=== PATIENT | female | born 1960 | race Caucasian/White ===

== ENCOUNTER 2016-11-27 11:40 | Inpatient (IN) | payer BC, OTHER ==
--- NOTE | 2016-11-27 13:05 | RAD ---
INDICATION: Shortness of breath tachycardia. COMPARISON: There are no prior studies available for comparison. TECHNIQUE: A portable view of the chest was obtained. FINDINGS: The heart is within normal limits for this portable exam. The lungs are underinflated. There are small infiltrates at both lung bases and a small left pleural effusion. IMPRESSION: SMALL BIBASILAR INFILTRATES AND SMALL LEFT PLEURAL EFFUSION.
[2016-11-27 13:06] LABS: Hematocrit 31 % (35-47); Hemoglobin 10.5 g/dl (12.0-16.0); Mean Corpuscular HGB Conc 34 g/dl (31-36); Mean Corpuscular Hemoglobin 39 pg (27-31); Mean Corpuscular Volume 117 fL (80-97); Mean Platelet Volume 8 um3 (7.4-10.4); Red Blood Count 2.66 10^6/ul (4.0-5.4); Red Cell Distribution Width 26 % (10.5-15); White Blood Count 15.8 10^3/ul (3.5-10.8)
--- NOTE | 2016-11-27 13:07 | RAD ---
INDICATION: Left ankle injury. TECHNIQUE: 3 views of the left ankle were obtained. FINDINGS: There is diffuse soft tissue swelling which is most prominent adjacent to the medial malleolus. The bones are in normal alignment. Joint spaces appear maintained. No acute fracture is seen. There is a small ossicle noted adjacent to the distal fibula. IMPRESSION: SOFT TISSUE SWELLING, NO FRACTURE IS SEEN.
[2016-11-27 13:15] LABS: Add Diff/Slide Review? Slide Review Added; Comments Flag Yes
[2016-11-27 13:22] LABS: ALT 21 U/L (7-52); AST 40 U/L (13-39); Albumin 2.5 g/dL (3.2-5.2); Alkaline Phosphatase 161 U/L (34-104); Anion Gap 12 mmol/L (2-11); BUN/Creatinine Ratio 12.8 (8-20); Blood Urea Nitrogen 21 mg/dL (6-24); C Reactive Protein 79.73 mg/L (< 5.00); CO2 Carbon Dioxide 18 mmol/L (22-32); Calcium 8.3 mg/dL (8.6-10.3); Chloride 102 mmol/L (101-111); Creatine Kinase 65 U/L (10-223); EGFR African American 41.5 (>60); EGFR Non-African American 32.3 (>60); Globulin 3.1 g/dL (2-4); Glucose 96 mg/dL (70-100); Lipase 18 U/L (11.0-82.0); Sodium 132 mmol/L (133-145); Total Protein 5.6 g/dL (6.4-8.9)
[2016-11-27 13:26] LABS: B Type Natriuretic Peptide 444 pg/mL; Troponin I 0.04 ng/mL (<0.04)
[2016-11-27 13:28] LABS: Magnesium 1.6 mg/dL (1.9-2.7)
[2016-11-27 13:33] LABS: Immature Granulocytes 20 % (0-9); Metamyelocytes % 1 % (0-2); Myelocytes % 1 % (0-1); Neutrophil % 70 % (38-83); Reactive Lymph % 2 % (0-6)
[2016-11-27 13:34] LABS: Alcohol < 10 mg/dL (<10); Burr Cells 2+; Macrocytosis 3+; Polychromasia 1+
[2016-11-27 13:35] LABS: Add Path Review? YES; Tear Drop Cells 1+
[2016-11-27 13:42] LABS: TSH (Thyroid Stimulating Horm) 2.12 mcIU/mL (0.34-5.60)
--- NOTE | 2016-11-27 13:45 | RAD ---
INDICATION: Left lower extremity swelling. COMPARISON: There are no prior studies available for comparison. TECHNIQUE: Multiple real-time, color flow and Doppler tracings of the left lower extremity were obtained. FINDINGS: The common femoral, femoral, profunda femoral and popliteal veins all demonstrate normal compressibility, augmentation with compression and phasic response with respiration. The posterior tibial and peroneal veins demonstrate normal compressibility and augmentation with compression. IMPRESSION: NO EVIDENCE FOR DEEP VENOUS THROMBOSIS.
[2016-11-27] MEDS ORDERED: Iodixanol* (CONTRAST) 320 MG/ML 100 ML SDV IV ONE (13:49)
[2016-11-27 13:59] LABS: Acetaminophen 66 mcg/mL
[2016-11-27] MEDS ORDERED: Acetylcysteine IV* 0 MG in D5W 250 ML BAG* 200 ML IVPB ONE (14:11)
[2016-11-27] MEDS ORDERED: D5W IVPB ONE ×3 (14:30→21:00)
[2016-11-27] MEDS ORDERED: ACETYLCYSTEINE IVPB ONE ×3 (14:30→21:00)
--- NOTE | 2016-11-27 14:41 | RAD ---
INDICATION: Abdominal pain and jaundice. COMPARISON: Comparison is made with a prior right upper quadrant ultrasound from May 26, 2012. TECHNIQUE: A CT scan of the abdomen and pelvis was performed without intravenous and with oral contrast. Contiguous axial sections were obtained from the lung bases through the symphysis pubis. Images were reconstructed in the coronal and sagittal planes. FINDINGS: There is a small to moderate size right pleural effusion and a small left pleural effusion. There is mild right lower lobe subsegmental atelectasis. The liver is normal in size without significant focal abnormality on this noncontrast study. The gallbladder is distended. There are calcified gallstones present in the region of the neck of the gallbladder. No intra or extra hepatic ductal distention is appreciated. The pancreas is normal in size. No pancreatic ductal distention is noted. There appears to be a duodenal diverticulum adjacent to the pancreatic head. The spleen is enlarged measuring 15.2 cm AP and 14.6 cm craniocaudad 6.6 cm transverse. The adrenal glands and kidneys are normal in size. No renal calculi or hydronephrosis is seen. The aorta is normal in caliber without significant calcific plaque. There are enlarged retroperitoneal lymph nodes present anterior to the inferior portion of the inferior vena cava extending into the right common iliac chain. These measure up to 1.9 cm in transverse dimension and are not well-defined on this study due to lack of IV contrast and minimal oral contrast in the adjacent bowel. The stomach, small and large bowel appear nondistended. The appendix is not visualized. There appears to be thickening of the wall of the ascending colon suggestive of colitis. This is not well-defined on this study. There is a moderate amount of ascites present throughout the abdomen and pelvis. No free intraperitoneal air is seen. The uterus is retroverted and normal in size. There is a mild compression fracture of the superior endplate of the L1 vertebral body which is likely chronic. There is also a moderate chronic compression fracture of the T9 vertebral body. IMPRESSION: 1. SMALL BILATERAL PLEURAL EFFUSIONS. 2. MODERATE AMOUNT OF ASCITES. 3. DISTENDED GALLBLADDER AND CHOLELITHIASIS. 4. MILD THICKENING OF THE WALL OF THE ASCENDING COLON SUGGESTIVE OF COLITIS. 5. SPLENOMEGALY. 6. ENLARGED RETROPERITONEAL LYMPH NODES IN THE LOWER ABDOMEN AND PELVIS. 7. CHRONIC VERTEBRAL BODY COMPRESSION FRACTURES.
--- NOTE | 2016-11-27 14:50 | ED ---
IHussein,Samantha, scribed for Edgardo Flowers MD on 11/27/16 at 1229 . Lower Extremity - HPI Summary HPI Summary: This 56 y/o female presents to ED with chief complaint BLE pain and swelling since 3 days ago. Pt reports that she twisted her LLE ankle while climbing stairs several days ago, and noted bilat swelling. Positive abd bloating, abd pain, chills, SOB, and general weakness. Vague complaint of confusion. Pt states that she slept for 24 hours yesterday. present at bedside reports complaint of subjective fever and APAP taken yesterday. PMHx includes hepatitis as child and HTN. Blood pressure of 140/67 is noted at time of initial evaluation. - History of Current Complaint Chief Complaint: EDAbdPain Stated Complaint: BOTH LEGS HURT Time Seen by Provider: 11/27/16 12:07 Hx Obtained From: Patient, Medical Records Mechanism Of Injury: Twisted - LLE, Unknown Pain Intensity: 5 Pain Scale Used: 0-10 Numeric Location: Is Discrete @ - BLE Associated Signs And Symptoms: Positive: Swelling, Fever - Allergies/Home Medications Allergies/Adverse Reactions: Allergies Allergy/AdvReac Type Severity Reaction Status Date / Time Bee Venom Allergy Fever Verified 11/27/16 12:00 environmental Allergy Dizziness Uncoded 11/27/16 11:59 environmental/ fragrances Allergy Dizziness Uncoded 11/27/16 11:59 seafood Allergy Hives Uncoded 11/27/16 12:00 tree nuts Allergy Hives Uncoded 11/27/16 11:58 Home Medications: Home Medications Acetaminophen TAB* [Tylenol TAB*] 1,000 mg PO Q4H PRN 11/27/16 [History Confirmed 11/27/16] PMH/Surg Hx/FS Hx/Imm Hx Cardiovascular History: Reports: Hx Hypertension Infectious Disease History: No Infectious Disease History: Denies: Traveled Outside the [place] in Last 30 Days - Family History Known Family History: Positive: Unknown - Pt is adopted - Social History Alcohol Use: Occasionally Substance Use Type: Reports: None Smoking Status (MU): Never Smoked Tobacco Review of Systems Positive: Fever, Chills Positive: Abdominal Pain, Other - abd bloating Positive: Edema - BLE, Other - BLE pain Positive: Weakness - General weakness Negative: Anxious, Depressed All Other Systems Reviewed And Are Negative: Yes Physical Exam Triage Information Reviewed: Yes Vital Signs On Initial Exam: Initial Vitals Temp Pulse Resp BP Pulse Ox 97.4 F 112 16 135/53 100 11/27/16 11:51 11/27/16 11:51 11/27/16 11:51 11/27/16 11:51 11/27/16 11:51 Vital Signs Reviewed: Yes Appearance: Positive: Ill-Appearing Skin: Positive: Jaundiced Head/Face: Positive: Normal Head/Face Inspection Eyes: Positive: Other: - icteric sclera Neck: Positive: Supple, Nontender Respiratory/Lung Sounds: Positive: Clear to Auscultation, Breath Sounds Present Cardiovascular: Positive: Tachycardia Abdomen Description: Positive: Other: - abd diffusely tender Musculoskeletal: Positive: Strength/ROM Intact - HARRISON Neurological: Positive: Sensory/Motor Intact - [place], Alert, Oriented to Person Place, Time Psychiatric: Positive: Affect/Mood Appropriate AVPU Assessment: Alert Diagnostics - Vital Signs Vital Signs Temp Pulse Resp BP Pulse Ox 11/27/16 11:51 97.4 F 112 16 135/53 100 - Laboratory Lab Results: Lab Results 11/27/16 11/27/16 11/27/16 Range/Units 12:55 12:55 12:55 WBC 15.8 H (3.5-10.8) 10^3/ul RBC 2.66 L (4.0-5.4) 10^6/ul Hgb 10.5 L (12.0-16.0) g/dl Hct 31 L (35-47) % MCV 117 H (80-97) fL MCH 39 H (27-31) pg MCHC 34 (31-36) g/dl RDW 26 H (10.5-15) % Plt Count 70 L (150-450) 10^3/ul MPV 8 (7.4-10.4) um3 Immature Gran % (Auto) 20 H (0-9) % Neut % (Auto) 86.6 H (38-83) % Lymph % (Auto) 7.9 L (25-47) % [place] % (Auto) 4.2 (1-9) % Eos % (Auto) 1.1 (0-6) % Baso % (Auto) 0.2 (0-2) % Absolute Neuts (auto) 13.7 H (1.5-7.7) 10^3/ul Absolute Lymphs (auto) 1.3 (1.0-4.8) 10^3/ul Absolute Monos (auto) 0.7 (0-0.8) 10^3/ul Absolute Eos (auto) 0.2 (0-0.6) 10^3/ul Absolute Basos (auto) 0 (0-0.2) 10^3/ul Absolute Nucleated RBC 0.01 10^3/ul Neutrophils % 70 (38-83) % Band Neutrophils % 18 H (0-8) % Lymphocytes % 6 L (25-47) % Reactive Lymphs % 2 (0-6) % Monocytes % 2 (0-13) % Metamyelocytes % 1 (0-2) % Myelocytes % 1 (0-1) % Nucleated RBC % 0 Normal RBC Morphology Not Reportable Polychromasia 1+ Macrocytosis 3+ Tear Drop Cells 1+ [place] Cells 2+ Hem Pathologist Commnt Pending INR (Anticoag Therapy) 2.82 H (0.89-1.11) APTT 54.4 H (26.0-36.3) seconds D-Dimer, Quantitative > 1050 H (Less Than 230) ng/mL Sodium 132 L (133-145) mmol/L Potassium 4.0 (3.5-5.0) mmol/L Chloride 102 (101-111) mmol/L Carbon Dioxide 18 L (22-32) mmol/L Anion Gap 12 H (2-11) mmol/L BUN 21 (6-24) mg/dL Creatinine 1.64 H (0.51-0.95) mg/dL Est GFR ( Amer) 41.5 (>60) Est GFR (Non-Af Amer) 32.3 (>60) BUN/Creatinine Ratio 12.8 (8-20) Glucose 96 (70-100) mg/dL Lactic Acid (0.5-2.0) mmol/L Calcium 8.3 L (8.6-10.3) mg/dL Magnesium 1.6 L (1.9-2.7) mg/dL Total Bilirubin 17.70 H* (0.2-1.0) mg/dL AST 40 H (13-39) U/L ALT 21 (7-52) U/L Alkaline Phosphatase 161 H (34-104) U/L Ammonia Total Creatine Kinase 65 (10-223) U/L CK-MB (CK-2) 3.0 (0.6-6.3) ng/mL Troponin I 0.04 H* (<0.04) ng/mL C-Reactive Protein 79.73 H (< 5.00) mg/L B-Natriuretic Peptide ( - 100) pg/mL Total Protein 5.6 L (6.4-8.9) g/dL Albumin 2.5 L (3.2-5.2) g/dL Globulin 3.1 (2-4) g/dL Albumin/Globulin Ratio 0.8 L (1-3) Lipase 18 (11.0-82.0) U/L TSH 2.12 (0.34-5.60) mcIU/mL Acetaminophen 66 H* mcg/mL Serum Alcohol < 10 (<10) mg/dL 11/27/16 11/27/16 Range/Units 12:55 12:55 WBC (3.5-10.8) 10^3/ul RBC (4.0-5.4) 10^6/ul Hgb (12.0-16.0) g/dl Hct (35-47) % MCV (80-97) fL MCH (27-31) pg MCHC (31-36) g/dl RDW (10.5-15) % Plt Count (150-450) 10^3/ul MPV (7.4-10.4) um3 Immature Gran % (Auto) (0-9) % Neut % (Auto) (38-83) % Lymph % (Auto) (25-47) % [place] % (Auto) (1-9) % Eos % (Auto) (0-6) % Baso % (Auto) (0-2) % Absolute Neuts (auto) (1.5-7.7) 10^3/ul Absolute Lymphs (auto) (1.0-4.8) 10^3/ul Absolute Monos (auto) (0-0.8) 10^3/ul Absolute Eos (auto) (0-0.6) 10^3/ul Absolute Basos (auto) (0-0.2) 10^3/ul Absolute Nucleated RBC 10^3/ul Neutrophils % (38-83) % Band Neutrophils % (0-8) % Lymphocytes % (25-47) % Reactive Lymphs % (0-6) % Monocytes % (0-13) % Metamyelocytes % (0-2) % Myelocytes % (0-1) % Nucleated RBC % Normal RBC Morphology Polychromasia Macrocytosis Tear Drop Cells [place] Cells Hem Pathologist Commnt INR (Anticoag Therapy) (0.89-1.11) APTT (26.0-36.3) seconds D-Dimer, Quantitative (Less Than 230) ng/mL Sodium (133-145) mmol/L Potassium (3.5-5.0) mmol/L Chloride (101-111) mmol/L Carbon Dioxide (22-32) mmol/L Anion Gap (2-11) mmol/L BUN (6-24) mg/dL Creatinine (0.51-0.95) mg/dL Est GFR ( Amer) (>60) Est GFR (Non-Af Amer) (>60) BUN/Creatinine Ratio (8-20) Glucose (70-100) mg/dL Lactic Acid 5.2 H* (0.5-2.0) mmol/L Calcium (8.6-10.3) mg/dL Magnesium (1.9-2.7) mg/dL Total Bilirubin (0.2-1.0) mg/dL AST (13-39) U/L ALT (7-52) U/L Alkaline Phosphatase (34-104) U/L Ammonia TNP Total Creatine Kinase (10-223) U/L CK-MB (CK-2) (0.6-6.3) ng/mL Troponin I (<0.04) ng/mL C-Reactive Protein (< 5.00) mg/L B-Natriuretic Peptide 444 H ( - 100) pg/mL Total Protein (6.4-8.9) g/dL Albumin (3.2-5.2) g/dL Globulin (2-4) g/dL Albumin/Globulin Ratio (1-3) Lipase (11.0-82.0) U/L TSH (0.34-5.60) mcIU/mL Acetaminophen mcg/mL Serum Alcohol (<10) mg/dL Result Diagrams: 11/27/16 12:55 11/27/16 12:55 Lab Statement: Any lab studies that have been ordered have been reviewed, and results considered in the medical decision making process. - Radiology CXR Xray Interpretation: Positive (See Comments) - SMALL BIBASILAR INFILTRATES AND SMALL LEFT PLEURAL EFFUSION. Radiology Interpretation Completed By: Radiologist LLE ankle Xray Interpretation: No Acute Changes - Soft tissue swelling. No fx noted. Radiology Interpretation Completed By: Radiologist - CT CTA Chest CT Interpretation Completed By: Radiologist CTA Ab/P CT Interpretation Completed By: Radiologist - Additional Comments Diagnostic Additional Comments: Venous Doppler Study -- Lower Extremity Course/Dx - Course Assessment/Plan: DISCUSSED WITH POISON CONTROL. ADMIT HOSPITALIST GUARDED. - Diagnoses Provider Diagnoses: Acetaminophen overdose, Ankle strain, Edema, Hepatic failure - Physician Notifications Discussed Care of Patient With: Dr. Bentley (Hospitalist) at 1225 PM. -- accepts admission of the patient. Time Discussed With Above Provider: 12:25 Instructed by Provider To: Admit As Inpatient - Critical Care Time Critical Care Time: 30-74 min Discharge - Discharge Plan Condition: Guarded Disposition: ADMITTED TO [facility] The documentation as recorded by the Hussein kwong Soohyun accurately reflects the service I personally performed and the decisions made by me, Edgardo Flowers MD.
[2016-11-27] MEDS ORDERED: oxyCODONE TAB* 5 MG TAB PO PRN (15:06)
[2016-11-27] MEDS ORDERED: NS 0.9% 1000 ML* 1,000 ML IV SCH (15:15)
[2016-11-27] MEDS ORDERED: Magnesium Sulfate 2 GM IV* 2 GM/50 ML BAG IVPB ONE (15:19)
[2016-11-27] MEDS ORDERED: cefoTAXime(*) 2,000 MG in NS 0.9% 50 ML* 50 ML IVPB SCH (16:00)
[2016-11-27] MEDS: Spironolactone TAB* 25 MG PO SCH (17:21)
--- NOTE | 2016-11-27 17:27 | RAD ---
INDICATION: Ascites, evaluate for portal vein thrombosis. COMPARISON: Comparison is made with a prior CT of the abdomen and pelvis from November 27, 2016 and a prior right upper quadrant ultrasound from May 26, 2012. TECHNIQUE: Multiple real-time and Doppler images of the right upper quadrant were obtained. FINDINGS: The liver is small in size, heterogeneous in echogenicity with a nodular contour most consistent with cirrhosis. No focal abnormality is appreciated. There appears to be occlusion of the portal vein and likely the main right and left branches. There is a hepatopedal flow within the splenic vein and hepatofugal flow within the superior mesenteric vein. The hepatic veins are patent. There is a moderate amount of ascites around the liver. IMPRESSION: 1. ASCITES. 2. PORTAL VEIN THROMBOSIS. 3. FINDINGS MOST CONSISTENT WITH CIRRHOSIS.
--- NOTE | 2016-11-27 17:35 | HP ---
ADDENDUM NOW INCLUDED ON THIS REPORT HISTORY AND PHYSICAL: DATE OF ADMISSION: 11/27/16 PRIMARY CARE PROVIDER: None. CHIEF COMPLAINT: Leg edema and "fluid retention". HISTORY OF PRESENT ILLNESS: Nicole Betts is a 56-year-old female with a history of alcoholism. The patient is a recovering alcoholic as of 6 to 8 months ago when she stopped drinking and started attending AA meetings. The patient stated that 2 weeks ago she sprained her ankle. For pain as well as edema, she started taking Tylenol. The patient stated that her had been administering her the Tylenol and they read the directions on the bottle that they are supposed to take 2 tablets at a time every 4 hours. I suspect that they had 2 different Tylenol bottles and one was at the dose of 325 mg per tablet and another one was 500. Nevertheless, the patient's stated the patient had been taking 500 mg tablets and they were two of them every 4 hours for the past several days for pain and swelling in the left ankle. The patient' s noted that the patient's eyes became "yellow" approximately 7 days ago. The patient also noted that today her weight was checked, was noted to be 160 pounds and she usually is at 120 pounds. She stated that she had started gathering fluid weight for the past 10 days and she also complains of early satiety. She has marked elevation of bilirubin at 17. She has renal insufficiency with creatinine of 1.6. She appears to be in acute liver failure. Her Tylenol level was elevated at 66. The patient is going to be admitted to the ICU for further management and treatment with Mucomyst. PAST MEDICAL HISTORY: 1. History of seizure episode that occurred after the patient ingested SHRIMP, but also was thought to be may be due to alcohol withdrawal, in 2011. She has not had any seizures since. 2. History of alcoholism. The patient started drinking alcohol in her teenage years. She quit drinking 6 to 8 months ago. She usually drank several cans of beer a day. MEDICATIONS: Tylenol, as above mentioned. ALLERGIES: NUTS, LOBSTER, and CRAB. FAMILY HISTORY: Unknown. The patient is adopted. SOCIAL HISTORY: As above, drinking alcohol up to 6 months ago. She denies any tobacco or drug use. She lives with her , Jessica, who is her surrogate. The patient is a retired school bus aide. 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 REVIEW OF SYSTEMS: Please see history of present illness. As above mentioned, the patient started noting early satiety in the past several days. Left ankle is swollen and occasionally painful, but she is able to walk. She stated that walking up the stairs is problematic. She gained approximately 40 pounds of weight in the past 2 weeks. She had not noticed her jaundice, but her did approximately 7 days ago. She quit drinking 6 to 8 months ago. Her bowel movements have been regular on a daily basis and not discolored. The patient stated that she had been tired in the past couple of days and she slept almost 24 hours a day prior to her admission. The remaining 14 systems were reviewed with the patient and the patient's and were otherwise negative. PHYSICAL EXAMINATION GENERAL: The patient is a very pleasant 56-year-old female who is in no acute distress. Awake, alert, and oriented x3. VITAL SIGNS: Blood pressure of 119/47, heart rate of 102 and regular, respiratory rate 16, oxygen saturation 98% on room air, and temperature of 97.4. HEENT: Head: Atraumatic, normocephalic. Eyes: Pupils are equal, reactive to light and accommodation. Sclerae icteric. Oropharynx clear. Mucosa moist. NECK: Supple. No JVD, no bruit bilaterally. RESPIRATORY: Clear to auscultation bilaterally. CARDIOVASCULAR: Regular rate and rhythm. No murmur. ABDOMEN: Moderate ascites present. Difficult to palpable for hepatomegaly. Otherwise abdomen is soft and nontender. EXTREMITIES: There is +1 pitting pedal edema, left more than right. Pulses are +2 bilaterally. There is no clubbing or cyanosis. On evaluation of the left ankle joint, the patient has no problems with passive and active range of motion of the left ankle. The left calf is definitely more swollen than the right. SKIN: On evaluation skin is jaundiced. Erythema noted in the left calf. It appears to be due to skin tension and not due to cellulitis. The patient also has spider angiomas on her chest. NEUROLOGIC: No asterixis present. The patient is alert and oriented x3, but slightly encephalopathic and poor historian. LABORATORY DATA AND DIAGNOSTIC STUDIES: Showed a white blood cell count of 15.8, hemoglobin of 10.5, hematocrit of 31, MCV of 117, and platelets of 70. INR of 2.8, PTT of 54, D-dimer of above 1000. Sodium of 132, potassium 4.0, chloride 102, carbon dioxide 18, anion gap of 12, BUN 21, creatinine 1.6. Liver function tests showed total bilirubin of 17.7, AST of 40, ALT of 21, alkaline phosphatase of 161. Ammonia too high to calculate. The ammonia level was redrawn for submission. C-reactive protein of 79. Brain natriuretic peptide was 444. TSH of 2.1. Lipase of 18. Albumin 2.5, globulin of 3.1, total protein of 5.6. Lactic acid was elevated at 5.2. Magnesium was 1.6. The patient's left ankle x-ray showed no fracture, but noted soft tissue swelling. Venous Doppler study on the left lower extremity showed no DVT. CT abdomen and pelvis obtained without contrast, impression: "Mild bilateral pleural effusions. Moderate amount of ascites. Distended gallbladder and cholelithiasis. Mild thickening of the wall of the ascending colon suggestive of colitis. Splenomegaly. Enlarged retroperitoneal lymph nodes in the lower abdomen and pelvis. Chronic vertebral body compression fractures." Furthermore , in the body of the report, there were enlarged retroperitoneal lymph nodes present, noted up to 1.9 cm in transverse dimension. Spleen was measuring 15 cm. ASSESSMENT AND PLAN: 1. Mrs. Betts is a 56-year-old female with a history of alcoholism that is longstanding, up to 6 months ago when she quit drinking. After her ankle injury , she had been taking Tylenol up to 6 g in a 24-hour period. At this point, the most likely contributing factor to her acute liver failure is both liver impairment from chronic alcoholism that is now in remission and Tylenol toxicity. At this point, the patient is going to be admitted to the ICU for Mucomyst infusion. The patient's calculated MELD score is 35, giving the patient over 50% three-month mortality. I discussed this with Dr. Avalos who will see the patient in consultation. I also placed a call to a transplant specialist in [place] to discuss the possibility of transfer or further suggestions. The patient and the patient's were informed about the gravity of the situation and the liver failure. 2. In regards to the patient's hypomagnesemia, that is going to be replaced with IV magnesium. 3. The patient's acute renal failure is, hopefully, mostly due to dehydration. The patient has anasarca. She is intravascularly depleted. I will place the patient on intravenous hydration with normal saline. She may also be developing hepatorenal syndrome. 4. The patient has leukocytosis and elevated lactic acid, but so far no evidence of infection. We are going to obtain urinalysis. Her abdomen is nontender. At this point, I am going to observe the patient and not treat her with antibiotics. Once again, she appears severely ill, but nontoxic. 5. In regards to DVT prophylaxis, the patient is thrombocytopenic with INR of 2.8. At this point, I will not institute anticoagulation for DVT prophylaxis and place the patient on SCDs only. 6. For pain management due to left ankle sprain, the patient is going to be placed on oxycodone on a p.r.n. basis. 7. Code status is full. 8. In regards to elevation of the patient's ammonia level, the patient does appear to be slightly encephalopathic and she is going to be placed on lactulose. TIME SPENT: Approximately 70 minutes were spent on admission of this patient, more than half of that time was spent [id number] with the patient, doing the interview and physical exam. ADDENDUM: I spoke with the nurse practitioner working with Dr. Brown from [facility]. At this point, the patient is a not in a need of urgent transfer for liver transplant. A specialist from the liver transplant center at [place] recommended liver ultrasound to assess for liver echogenicity and possible liver cirrhosis. It was also thought that due to her transaminases not being elevated significantly, her liver failure is less likely to be related to Tylenol toxicity and more likely to be related to liver cirrhosis per se. Also due to leukocytosis retroperitoneal adenopathy, the patient is going to be placed on empiric antibiotics for possibility of spontaneous bacterial peritonitis. The patient is going to be placed on cefotaxime. The elevated INR makes paracentesis more risky at this point. The patient is going to be continued on monitored bed in the ICU CC: Dr. Juarez; Dr. Avalos * [id number]/CPS #: [id number] #: [id number]
[2016-11-27] MEDS ORDERED: Furosemide IV* 10 MG/ML 2 ML VIAL (20 MG) IV ONE (18:00)
[2016-11-27] MEDS ORDERED: Phytonadione Oral Solution* 5 MG/25 ML UDC PO ONE (18:00)
[2016-11-27] MEDS: cefTRIAXone VIAL(*) 1,000 MG in NS 0.9% 50 ML* 50 ML IVPB SCH (18:17)
[2016-11-27 18:19] LABS: Iron 103 ug/dL (50-212); Total Iron Binding Capacity 242 mcg/dL (250-450); Transferrin 173 mg/dL (203-362)
--- NOTE | 2016-11-27 20:51 | HP ---
HISTORY AND PHYSICAL:* ADDENDUM: I spoke with the nurse practitioner working with Dr. Brown from [facility]. At this point, the patient is a not in a need of urgent transfer for liver transplant. A specialist from the liver transplant center at [place] recommended liver ultrasound to assess for liver echogenicity and possible liver cirrhosis. It was also thought that due to her transaminases not being elevated significantly, her liver failure is less likely to be related to Tylenol toxicity and more likely to be related to liver cirrhosis per se. Also due to leukocytosis retroperitoneal adenopathy, the patient is going to be placed on empiric antibiotics for possibility of spontaneous bacterial peritonitis. The patient is going to be placed on cefotaxime. The elevated INR makes paracentesis more risky at this point. The patient is going to be continued on monitored bed in the ICU treatment. [id number]/CPS #: [id number] MTDD
[2016-11-27] MEDS: Omeprazole CAP* 20 MG PO SCH (20:57)
--- NOTE | 2016-11-27 20:59 | CONS ---
CONSULTATION REPORT: DATE OF CONSULT: 11/27/16 REASON FOR CONSULT: Jaundice. NARRATIVE: Ms. Betts is a 56-year-old woman with a history of alcohol abuse in the past who approximately 2 weeks ago twisted her ankle. Prior to that, she was feeling well. However, in the last 2 weeks, she has had progressive fatigue, weight gain of about 20 pounds, evidence of jaundice in the last few days. Due to that, she came to the emergency room. On arrival here, she was noted to be jaundiced. Laboratory data demonstrated a total bilirubin of 17.7, AST of 40, ALT of 21, ammonia of 33, creatinine of 1.64, and INR of 2.82. She does report that due to her sprained ankle, she was taking acetaminophen extra strength anywhere from 2 to 4 tablets daily. Of note, acetaminophen level was 66 on presentation. The patient does report significant alcohol use for much of her life from teenage to mid life. She reports about 6 beers daily. Four months ago, she quit alcohol altogether and insisted there has been no alcohol consumption since then. She has not been on any prescription medicine and states that she does not typically see doctors. She was, however, admitted last in 2011 for seizures and that time, was noted to have some abnormalities of her liver test with an ALT of 108 and AST of 216. Bilirubin was normal at that time. She additionally had a bilirubin checked in 2014 for unclear reasons , which was 2.7. She describes that many years ago when she was in her 20s, she had hepatitis, describes it as non A, non B hepatitis. She has never tried to donate blood. She denies any intravenous drug use. PAST MEDICAL HISTORY: Again is rather brief. Her only admission again was in 2011 for seizure. Her only surgery was eye surgery as a child. FAMILY HISTORY: Unknown as she is adopted although there is alcoholism in her adopted family. REVIEW OF SYSTEMS: She does describe in the last few days daytime sleepiness. She states that she really does not have much trouble sleeping at night. She denies any confusion, GI bleeding, constipation. She has had no documented fevers. She denies any back pain, pruritus. She does admit to bipedal edema. She denies any chest pain or breathing difficulties. PHYSICAL EXAM: She is an alert woman, quite pleasant, in no acute distress. Temperature is 97.7, blood pressure is 113/50, heart rate is 96 and regular. She is icteric. Sclerae icteric as well. There is some telangiectasia over the chest. There is no palmar erythema or xanthomas. Lungs are clear. Cardiac exam: Reveals a regular rhythm without murmur. Abdomen is softly distended without any reagan tenderness or organomegaly. There is no obvious shifting dullness. Extremities: Reveals 3+ bipedal pitting edema. Neurologically, she is alert and oriented. There is no asterixis. DIAGNOSTIC STUDIES/LAB DATA: Include sodium of 132, MCV of 117, platelet count of 70,000. CT scan of the abdomen was performed demonstrating a moderate amount of ascites. A normal appearing liver, although this was a noncontrast study. IMPRESSION: A 56-year-old woman presenting with jaundice and evidence of hepatic failure with prolonged INR. She does not seem clinically encephalopathic although has had some slight alterations in wake sleep pattern. She does have significant alcohol use and that is certainly a plausible explanation for liver disease, although has a history of presumably non A, non B hepatitis and that certainly could have been hepatitis C as well. She has decompensated in the last 2 weeks. She has been on Tylenol although the fact that she is not actively drinking makes Tylenol toxicity at her current dose much less likely an etiology. To me it is more plausible that she has underlying cirrhosis that became decompensated for quite unclear reasons at this point. Spontaneous bacterial peritonitis is a possibility given her ascites. However, a tap would be contraindicated given her prolonged INR. At this point, I will check viral serologies, NAN. I think we could try her on low dose diuretics and monitor her liver function test very carefully. Her MELD score is quite high which is concerning and that was discussed with her. Discussions were made between Dr. Bentley and the transplant group in [place] who is aware of her. I think monitoring in the ICU for signs of encephalopathy or worsening liver failure is appropriate. Assuming she survives this, then outpatient endoscopy for checking varices would be recommended. [id number]/CPS #: [id number] MTDD
[2016-11-28 05:46] LABS: Albumin 1.9 g/dL (3.2-5.2); BUN/Creatinine Ratio 15.9 (8-20); Calcium 7.2 mg/dL (8.6-10.3); EGFR African American 50.7 (>60); EGFR Non-African American 39.4 (>60); Globulin 2.4 g/dL (2-4); Potassium 3.2 mmol/L (3.5-5.0); Total Protein 4.3 g/dL (6.4-8.9)
[2016-11-28] MEDS ORDERED: Furosemide IV* 10 MG/ML 2 ML VIAL (20 MG) IV ONE (08:19)
[2016-11-28] MEDS ORDERED: guaiFENesin LIQ* 100 MG/5 ML UDC PO PRN (08:19)
--- NOTE | 2016-11-28 08:35 | PN ---
Subjective Date of Service: 11/28/16 Interval History: pt feels much better. her bad feels "less full". started c/o dry cough Asked about a possibility to go home since "not much can be done anyway". Objective Active Medications: Furosemide (Lasix Iv*) 20 mg IV ONCE ONE Stop: 11/28/16 08:20 Guaifenesin (Robitussin*) 5 ml PO Q4H PRN PRN Reason: COUGH Acetylcysteine 7,440 mg/ (Dextrose) 1,037.2 mls @ 64.825 mls/hr IVPB ONCE ONE Stop: 11/28/16 12:59 Last Admin: 11/27/16 20:55 Dose: 64.825 mls/hr Ceftriaxone Sodium 1,000 mg/ (Sodium Chloride) 50 mls @ 200 mls/hr IVPB Q24H [facility] Last Admin: 11/27/16 18:17 Dose: 200 mls/hr Lactulose (Lactulose*) 30 ml PO BID [facility] Stop: 11/28/16 23:55 Last Admin: 11/27/16 20:57 Dose: 30 ml Magnesium Oxide (Magox 400 Tab*) 800 mg PO DAILY [facility] Omeprazole (Prilosec Cap*) 20 mg PO BID [facility] Last Admin: 11/27/16 20:57 Dose: 20 mg Oxycodone HCl (Roxycodone Tab*) 5 mg PO Q6H PRN PRN Reason: pain-moderate to severe Spironolactone (Aldactone Tab*) 50 mg PO DAILY [facility] Last Admin: 11/27/16 17:21 Dose: 50 mg Vital Signs 11/27/16 11/27/16 11/27/16 14:12 14:20 14:30 Temperature Pulse Rate 95 102 Respiratory Rate Blood Pressure 131/47 119/47 (mmHg) O2 Sat by Pulse 99 99 Oximetry 11/27/16 11/27/16 11/27/16 14:47 14:48 15:00 Temperature 97.7 F Pulse Rate 96 100 Respiratory 26 26 Rate Blood Pressure 113/50 99/29 (mmHg) O2 Sat by Pulse 100 99 Oximetry 11/27/16 11/27/16 11/27/16 15:07 15:13 15:15 Temperature 97.7 F Pulse Rate 100 101 Respiratory Rate Blood Pressure (mmHg) O2 Sat by Pulse 98 99 Oximetry 11/27/16 11/27/16 11/27/16 15:45 16:00 16:07 Temperature Pulse Rate 99 98 Respiratory 23 27 27 Rate Blood Pressure 95/34 113/50 (mmHg) O2 Sat by Pulse 100 100 Oximetry 11/27/16 11/27/16 11/27/16 16:15 16:30 16:45 Temperature Pulse Rate 110 106 Respiratory 27 27 Rate Blood Pressure 127/53 137/45 137/49 (mmHg) O2 Sat by Pulse 100 100 Oximetry 11/27/16 11/27/16 11/27/16 17:00 18:00 19:00 Temperature Pulse Rate 107 96 Respiratory 28 23 24 Rate Blood Pressure 111/46 102/51 104/47 (mmHg) O2 Sat by Pulse 100 98 Oximetry 11/27/16 11/27/16 11/27/16 19:07 20:00 20:48 Temperature 98.9 F Pulse Rate Respiratory 30 32 Rate Blood Pressure 147/51 (mmHg) O2 Sat by Pulse 98 Oximetry 11/27/16 11/27/16 11/27/16 21:00 22:00 23:00 Temperature Pulse Rate Respiratory 29 26 25 Rate Blood Pressure 133/77 123/53 95/65 (mmHg) O2 Sat by Pulse 99 98 97 Oximetry 11/27/16 11/28/16 11/28/16 23:52 00:00 00:01 Temperature 99.0 F Pulse Rate 104 104 Respiratory 27 28 Rate Blood Pressure (mmHg) O2 Sat by Pulse 98 98 Oximetry 11/28/16 11/28/16 11/28/16 00:19 00:20 00:24 Temperature Pulse Rate Respiratory 23 25 28 Rate Blood Pressure 113/46 (mmHg) O2 Sat by Pulse 98 97 Oximetry 11/28/16 11/28/16 11/28/16 01:00 02:00 03:00 Temperature Pulse Rate Respiratory 27 27 28 Rate Blood Pressure 124/53 110/55 (mmHg) O2 Sat by Pulse 96 96 97 Oximetry 11/28/16 11/28/16 11/28/16 03:04 03:53 04:00 Temperature 99.3 F Pulse Rate Respiratory 29 27 Rate Blood Pressure 121/56 100/38 (mmHg) O2 Sat by Pulse 97 97 Oximetry 11/28/16 11/28/16 11/28/16 05:00 06:00 08:00 Temperature 99.6 F Pulse Rate Respiratory 29 29 Rate Blood Pressure 105/44 (mmHg) O2 Sat by Pulse 96 96 Oximetry Oxygen Devices in Use Now: None Appearance: 56 yo F inn nAd, aAOx3 Eyes: PERRLA, - - scera icteric b/l Ears/Nose/Mouth/Throat: NL Teeth, Lips, Gums, Mucous Membranes Moist Neck: NL Appearance and Movements; NL JVP Respiratory: Symmetrical Chest Expansion and Respiratory Effort, Clear to Auscultation Cardiovascular: NL Sounds; No Murmurs; No JVD, RRR Abdominal: - - mod ascites, not tense, soft, NT, BS+ Lymphatic: No Cervical Adenopathy Extremities: No Clubbing, Cyanosis - +, - - +1 pitting edema L>R Skin: No Rash or Ulcers, No Nodules or Sclerosis Neurological: Alert and Oriented x 3, NL Muscle Strength and Tone Result Diagrams: 11/27/16 12:55 11/28/16 05:20 Additional Lab and Data: Lab Results 11/27/16 11/27/16 11/27/16 Range/Units 12:55 12:55 12:55 WBC 15.8 H (3.5-10.8) 10^3/ul RBC 2.66 L (4.0-5.4) 10^6/ul Hgb 10.5 L (12.0-16.0) g/dl Hct 31 L (35-47) % MCV 117 H (80-97) fL MCH 39 H (27-31) pg MCHC 34 (31-36) g/dl RDW 26 H (10.5-15) % Plt Count 70 L (150-450) 10^3/ul MPV 8 (7.4-10.4) um3 Immature Gran % (Auto) 20 H (0-9) % Neut % (Auto) 86.6 H (38-83) % Lymph % (Auto) 7.9 L (25-47) % Meagher % (Auto) 4.2 (1-9) % Eos % (Auto) 1.1 (0-6) % Baso % (Auto) 0.2 (0-2) % Absolute Neuts (auto) 13.7 H (1.5-7.7) 10^3/ul Absolute Lymphs (auto) 1.3 (1.0-4.8) 10^3/ul Absolute Monos (auto) 0.7 (0-0.8) 10^3/ul Absolute Eos (auto) 0.2 (0-0.6) 10^3/ul Absolute Basos (auto) 0 (0-0.2) 10^3/ul Absolute Nucleated RBC 0.01 10^3/ul Neutrophils % 70 (38-83) % Band Neutrophils % 18 H (0-8) % Lymphocytes % 6 L (25-47) % Reactive Lymphs % 2 (0-6) % Monocytes % 2 (0-13) % Metamyelocytes % 1 (0-2) % Myelocytes % 1 (0-1) % Nucleated RBC % 0 Normal RBC Morphology Not Reportable Polychromasia 1+ Macrocytosis 3+ Tear Drop Cells 1+ Josemanuel Cells 2+ Hem Pathologist Commnt Pending INR (Anticoag Therapy) 2.82 H (0.89-1.11) APTT 54.4 H (26.0-36.3) seconds D-Dimer, Quantitative > 1050 H (Less Than 230) ng/mL Sodium 132 L (133-145) mmol/L Potassium 4.0 (3.5-5.0) mmol/L Chloride 102 (101-111) mmol/L Carbon Dioxide 18 L (22-32) mmol/L Anion Gap 12 H (2-11) mmol/L BUN 21 (6-24) mg/dL Creatinine 1.64 H (0.51-0.95) mg/dL Est GFR ( Amer) 41.5 (>60) Est GFR (Non-Af Amer) 32.3 (>60) BUN/Creatinine Ratio 12.8 (8-20) Glucose 96 (70-100) mg/dL Lactic Acid (0.5-2.0) mmol/L Calcium 8.3 L (8.6-10.3) mg/dL Magnesium 1.6 L (1.9-2.7) mg/dL Total Bilirubin 17.70 H* (0.2-1.0) mg/dL AST 40 H (13-39) U/L ALT 21 (7-52) U/L Alkaline Phosphatase 161 H (34-104) U/L Ammonia Total Creatine Kinase 65 (10-223) U/L CK-MB (CK-2) 3.0 (0.6-6.3) ng/mL Troponin I 0.04 H* (<0.04) ng/mL C-Reactive Protein 79.73 H (< 5.00) mg/L B-Natriuretic Peptide ( - 100) pg/mL Total Protein 5.6 L (6.4-8.9) g/dL Albumin 2.5 L (3.2-5.2) g/dL Globulin 3.1 (2-4) g/dL Albumin/Globulin Ratio 0.8 L (1-3) Lipase 18 (11.0-82.0) U/L TSH 2.12 (0.34-5.60) mcIU/mL Acetaminophen 66 H* mcg/mL Serum Alcohol < 10 (<10) mg/dL 11/27/16 11/27/16 Range/Units 12:55 12:55 WBC (3.5-10.8) 10^3/ul RBC (4.0-5.4) 10^6/ul Hgb (12.0-16.0) g/dl Hct (35-47) % MCV (80-97) fL MCH (27-31) pg MCHC (31-36) g/dl RDW (10.5-15) % Plt Count (150-450) 10^3/ul MPV (7.4-10.4) um3 Immature Gran % (Auto) (0-9) % Neut % (Auto) (38-83) % Lymph % (Auto) (25-47) % Meagher % (Auto) (1-9) % Eos % (Auto) (0-6) % Baso % (Auto) (0-2) % Absolute Neuts (auto) (1.5-7.7) 10^3/ul Absolute Lymphs (auto) (1.0-4.8) 10^3/ul Absolute Monos (auto) (0-0.8) 10^3/ul Absolute Eos (auto) (0-0.6) 10^3/ul Absolute Basos (auto) (0-0.2) 10^3/ul Absolute Nucleated RBC 10^3/ul Neutrophils % (38-83) % Band Neutrophils % (0-8) % Lymphocytes % (25-47) % Reactive Lymphs % (0-6) % Monocytes % (0-13) % Metamyelocytes % (0-2) % Myelocytes % (0-1) % Nucleated RBC % Normal RBC Morphology Polychromasia Macrocytosis Tear Drop Cells Josemanuel Cells Hem Pathologist Commnt INR (Anticoag Therapy) (0.89-1.11) APTT (26.0-36.3) seconds D-Dimer, Quantitative (Less Than 230) ng/mL Sodium (133-145) mmol/L Potassium (3.5-5.0) mmol/L Chloride (101-111) mmol/L Carbon Dioxide (22-32) mmol/L Anion Gap (2-11) mmol/L BUN (6-24) mg/dL Creatinine (0.51-0.95) mg/dL Est GFR ( Amer) (>60) Est GFR (Non-Af Amer) (>60) BUN/Creatinine Ratio (8-20) Glucose (70-100) mg/dL Lactic Acid 5.2 H* (0.5-2.0) mmol/L Calcium (8.6-10.3) mg/dL Magnesium (1.9-2.7) mg/dL Total Bilirubin (0.2-1.0) mg/dL AST (13-39) U/L ALT (7-52) U/L Alkaline Phosphatase (34-104) U/L Ammonia TNP Total Creatine Kinase (10-223) U/L CK-MB (CK-2) (0.6-6.3) ng/mL Troponin I (<0.04) ng/mL C-Reactive Protein (< 5.00) mg/L B-Natriuretic Peptide 444 H ( - 100) pg/mL Total Protein (6.4-8.9) g/dL Albumin (3.2-5.2) g/dL Globulin (2-4) g/dL Albumin/Globulin Ratio (1-3) Lipase (11.0-82.0) U/L TSH (0.34-5.60) mcIU/mL Acetaminophen mcg/mL Serum Alcohol (<10) mg/dL Microbiology and Other Data: Microbiology 11/27/16 15:33 Nasal Screen MRSA (PCR)([place]) - Final Nasal Mrsa Negative Assess/Plan/Problems-Billing Assessment: 56 yo F with h/o an episode of seizure in 1012(poss ETOH withdrawal ) and ETOH abuse up to 6 months ago presents with 40 lbs wt gain, jaundice, edema. Coincidentally 2 weeks ago she sprained her ankle and was taking Tylenol 1000 mg Q4H - Patient Problems (1) Acute liver failure Comment: sucpect it is due to underlying ETOH lived disesase and cirrhosis as well as portal vein thrombosis and Tylenol. Spokw tih [employer] working with Dr. Brown in [facility]. They thought that due to AST/ALT not markedly elevated that Tylenol toxicity did not play a major role and that pt was cirrhotic to begin with. cont tx with Aldactone/Lasix, stop IVF MELD Na score of 36 predicting >50% 3 month mortality (2) Portal vein thrombosis Comment: discussed noted portal vein thrombosis with Dr. Avalos. Due to slow onset of symptoms over at least 2-3 weeks, it is most likley chronic. Anticoagulation was not advised right now. will also d/w Dr. Brown. (3) Leukocytosis Comment: mild. Abd not tender on eval. due to high INR, unable to do paracentesis Started empiric tx for SBP with Ceftriaxone. Blood cx pending, afebrile. (4) Coagulation deficiency Comment: INR>3 today, due to liver failure (5) Thrombocytopenia Comment: due to liver failure (6) Tylenol poisoning Comment: As per [facility] in [place], most likley played a minor role in liver failure. cont Mucomyst infusion (7) Renal failure Comment: Unkown chronicity due to no med care x several years. Improving creat after Lasicx and Aldactone. will repeat a dose of IV Lasix today (8) Hypomagnesemia Comment: replacing PO (9) DVT prophylaxis Comment: due to DVT in portal vein , will start tx with Lovenox at a renal dose for prophylaxis Status and Disposition: cont tx in ICU for severe liver failure
[2016-11-28] MEDS: Omeprazole CAP* 20 MG PO SCH ×2 (08:53→20:32)
[2016-11-28] MEDS: Spironolactone TAB* 25 MG PO SCH (08:53)
[2016-11-28] MEDS: Magnesium Oxide TAB* 400 MG PO SCH (08:53)
[2016-11-28] MEDS: Enoxaparin(*) 30 MG/0.3 ML SYR SUBCUT SCH (08:59)
[2016-11-28] MEDS: cefTRIAXone VIAL(*) 1,000 MG in NS 0.9% 50 ML* 50 ML IVPB SCH (18:25)
[2016-11-29 06:38] LABS: Hematocrit 24 % (35-47); Hemoglobin 8.5 g/dl (12.0-16.0); Mean Corpuscular HGB Conc 35 g/dl (31-36); Mean Corpuscular Hemoglobin 41 pg (27-31); Mean Platelet Volume 8 um3 (7.4-10.4); Red Blood Count 2.08 10^6/ul (4.0-5.4); White Blood Count 10.5 10^3/ul (3.5-10.8)
[2016-11-29 06:39] LABS: Comments Flag Yes
[2016-11-29 06:40] LABS: Mean Corpuscular Volume 116 fL (80-97); Red Cell Distribution Width 25 % (10.5-15)
[2016-11-29 06:55] LABS: Albumin 1.9 g/dL (3.2-5.2); BUN/Creatinine Ratio 17.4 (8-20); Calcium 7.6 mg/dL (8.6-10.3); EGFR African American 66.5 (>60); EGFR Non-African American 51.7 (>60); Globulin 2.5 g/dL (2-4); Potassium 3.2 mmol/L (3.5-5.0); Total Protein 4.4 g/dL (6.4-8.9)
[2016-11-29 07:00] LABS: Total Bilirubin 14.1 mg/dL (0.2-1.0)
[2016-11-29 07:03] LABS: Magnesium 1.9 mg/dL (1.9-2.7)
[2016-11-29] MEDS ORDERED: Potassium Chlor TAB* 20 MEQ TAB.ER PO ONE (08:27)
[2016-11-29] MEDS: Spironolactone TAB* 25 MG PO SCH (09:54)
[2016-11-29] MEDS: Furosemide IV* 10 MG/ML 2 ML VIAL (20 MG) IV SCH (09:55)
[2016-11-29] MEDS: Phytonadione INJ (Adult)* 10 MG in NS 0.9% 50 ML* 50 ML IV SCH (10:37)
[2016-11-29] MEDS ORDERED: Midazolam* 1 MG/ML 10 ML VIAL (10 MG) ONE (11:13)
[2016-11-29] MEDS ORDERED: Meperidine SYRINGE* 50 MG/ML ONE (11:13)
--- NOTE | 2016-11-29 14:07 | PN ---
Subjective Date of Service: 11/29/16 Interval History: Seen and examined with at bedside s/p EGD today. Still feels sleepy but awake and hungry, eating breakfast Cough from yesterday resolved no N/V, BAINS, pain thinks mentation is good/baseline Objective Active Medications: Enoxaparin Sodium (Lovenox(*)) 30 mg SUBCUT Q24H [facility] Last Admin: 11/28/16 08:59 Dose: 30 mg Furosemide (Lasix Iv*) 20 mg IV DAILY [facility] Last Admin: 11/29/16 09:55 Dose: 20 mg Guaifenesin (Robitussin*) 5 ml PO Q4H PRN PRN Reason: COUGH Ceftriaxone Sodium 1,000 mg/ (Sodium Chloride) 50 mls @ 200 mls/hr IVPB Q24H [facility] Last Admin: 11/28/16 18:25 Dose: 200 mls/hr Phytonadione 10 mg/ Sodium (Chloride) 51 mls @ 100 mls/hr IV DAILY [facility] Stop: 11/30/16 23:59 Last Admin: 11/29/16 10:37 Dose: 100 mls/hr Magnesium Oxide (Magox 400 Tab*) 800 mg PO DAILY [facility] Last Admin: 11/28/16 08:53 Dose: 800 mg Omeprazole (Prilosec Cap*) 20 mg PO BID [facility] Last Admin: 11/28/16 20:32 Dose: 20 mg Oxycodone HCl (Roxycodone Tab*) 5 mg PO Q6H PRN PRN Reason: pain-moderate to severe Spironolactone (Aldactone Tab*) 50 mg PO DAILY [facility] Last Admin: 11/29/16 09:54 Dose: 50 mg Vital Signs 11/28/16 11/28/16 11/28/16 15:50 16:00 19:32 Temperature 99.9 F 99.9 F 98.8 F Pulse Rate 114 114 113 Respiratory 24 24 16 Rate Blood Pressure 130/56 130/56 130/54 (mmHg) O2 Sat by Pulse 99 99 99 Oximetry 11/28/16 11/28/16 11/28/16 20:00 23:40 23:45 Temperature 102.6 F Pulse Rate 113 Respiratory 18 16 Rate Blood Pressure 129/56 (mmHg) O2 Sat by Pulse 96 Oximetry 11/29/16 11/29/16 11/29/16 01:00 04:27 07:40 Temperature 99.2 F 98.8 F 98.8 F Pulse Rate 104 103 Respiratory 16 16 Rate Blood Pressure 105/52 115/51 (mmHg) O2 Sat by Pulse 97 96 Oximetry 11/29/16 08:00 Temperature Pulse Rate Respiratory 16 Rate Blood Pressure (mmHg) O2 Sat by Pulse Oximetry Oxygen Devices in Use Now: None Appearance: NAD, interactive Eyes: PERRLA, - - scleral icterus Ears/Nose/Mouth/Throat: NL Teeth, Lips, Gums, Clear Oropharnyx, - - sublingual jaundice Respiratory: Symmetrical Chest Expansion and Respiratory Effort, - - bibasilar rales Cardiovascular: RRR, - - 2-3/6 holosystolic murmur Abdominal: NL Sounds; No Tenderness; No Distention, No Hepatosplenomegaly Lymphatic: No Cervical Adenopathy Extremities: - - 2-3+ b/l LE edema Skin: - - jaundiceed Neurological: Alert and Oriented x 3, - - no asterixis, AOx3 Result Diagrams: 11/29/16 06:12 11/29/16 06:12 Additional Lab and Data: Lab Results 11/27/16 11/27/16 11/27/16 Range/Units 12:55 12:55 12:55 WBC 15.8 H (3.5-10.8) 10^3/ul RBC 2.66 L (4.0-5.4) 10^6/ul Hgb 10.5 L (12.0-16.0) g/dl Hct 31 L (35-47) % MCV 117 H (80-97) fL MCH 39 H (27-31) pg MCHC 34 (31-36) g/dl RDW 26 H (10.5-15) % Plt Count 70 L (150-450) 10^3/ul MPV 8 (7.4-10.4) um3 Immature Gran % (Auto) 20 H (0-9) % Neut % (Auto) 86.6 H (38-83) % Lymph % (Auto) 7.9 L (25-47) % [place] % (Auto) 4.2 (1-9) % Eos % (Auto) 1.1 (0-6) % Baso % (Auto) 0.2 (0-2) % Absolute Neuts (auto) 13.7 H (1.5-7.7) 10^3/ul Absolute Lymphs (auto) 1.3 (1.0-4.8) 10^3/ul Absolute Monos (auto) 0.7 (0-0.8) 10^3/ul Absolute Eos (auto) 0.2 (0-0.6) 10^3/ul Absolute Basos (auto) 0 (0-0.2) 10^3/ul Absolute Nucleated RBC 0.01 10^3/ul Neutrophils % 70 (38-83) % Band Neutrophils % 18 H (0-8) % Lymphocytes % 6 L (25-47) % Reactive Lymphs % 2 (0-6) % Monocytes % 2 (0-13) % Metamyelocytes % 1 (0-2) % Myelocytes % 1 (0-1) % Nucleated RBC % 0 Normal RBC Morphology Not Reportable Polychromasia 1+ Macrocytosis 3+ Tear Drop Cells 1+ Josemanuel Cells 2+ Hem Pathologist Commnt Pending INR (Anticoag Therapy) 2.82 H (0.89-1.11) APTT 54.4 H (26.0-36.3) seconds D-Dimer, Quantitative > 1050 H (Less Than 230) ng/mL Sodium 132 L (133-145) mmol/L Potassium 4.0 (3.5-5.0) mmol/L Chloride 102 (101-111) mmol/L Carbon Dioxide 18 L (22-32) mmol/L Anion Gap 12 H (2-11) mmol/L BUN 21 (6-24) mg/dL Creatinine 1.64 H (0.51-0.95) mg/dL Est GFR ( Amer) 41.5 (>60) Est GFR (Non-Af Amer) 32.3 (>60) BUN/Creatinine Ratio 12.8 (8-20) Glucose 96 (70-100) mg/dL Lactic Acid (0.5-2.0) mmol/L Calcium 8.3 L (8.6-10.3) mg/dL Magnesium 1.6 L (1.9-2.7) mg/dL Total Bilirubin 17.70 H* (0.2-1.0) mg/dL AST 40 H (13-39) U/L ALT 21 (7-52) U/L Alkaline Phosphatase 161 H (34-104) U/L Ammonia Total Creatine Kinase 65 (10-223) U/L CK-MB (CK-2) 3.0 (0.6-6.3) ng/mL Troponin I 0.04 H* (<0.04) ng/mL C-Reactive Protein 79.73 H (< 5.00) mg/L B-Natriuretic Peptide ( - 100) pg/mL Total Protein 5.6 L (6.4-8.9) g/dL Albumin 2.5 L (3.2-5.2) g/dL Globulin 3.1 (2-4) g/dL Albumin/Globulin Ratio 0.8 L (1-3) Lipase 18 (11.0-82.0) U/L TSH 2.12 (0.34-5.60) mcIU/mL Acetaminophen 66 H* mcg/mL Serum Alcohol < 10 (<10) mg/dL 11/27/16 11/27/16 Range/Units 12:55 12:55 WBC (3.5-10.8) 10^3/ul RBC (4.0-5.4) 10^6/ul Hgb (12.0-16.0) g/dl Hct (35-47) % MCV (80-97) fL MCH (27-31) pg MCHC (31-36) g/dl RDW (10.5-15) % Plt Count (150-450) 10^3/ul MPV (7.4-10.4) um3 Immature Gran % (Auto) (0-9) % Neut % (Auto) (38-83) % Lymph % (Auto) (25-47) % [place] % (Auto) (1-9) % Eos % (Auto) (0-6) % Baso % (Auto) (0-2) % Absolute Neuts (auto) (1.5-7.7) 10^3/ul Absolute Lymphs (auto) (1.0-4.8) 10^3/ul Absolute Monos (auto) (0-0.8) 10^3/ul Absolute Eos (auto) (0-0.6) 10^3/ul Absolute Basos (auto) (0-0.2) 10^3/ul Absolute Nucleated RBC 10^3/ul Neutrophils % (38-83) % Band Neutrophils % (0-8) % Lymphocytes % (25-47) % Reactive Lymphs % (0-6) % Monocytes % (0-13) % Metamyelocytes % (0-2) % Myelocytes % (0-1) % Nucleated RBC % Normal RBC Morphology Polychromasia Macrocytosis Tear Drop Cells [place] Cells Hem Pathologist Commnt INR (Anticoag Therapy) (0.89-1.11) APTT (26.0-36.3) seconds D-Dimer, Quantitative (Less Than 230) ng/mL Sodium (133-145) mmol/L Potassium (3.5-5.0) mmol/L Chloride (101-111) mmol/L Carbon Dioxide (22-32) mmol/L Anion Gap (2-11) mmol/L BUN (6-24) mg/dL Creatinine (0.51-0.95) mg/dL Est GFR ( Amer) (>60) Est GFR (Non-Af Amer) (>60) BUN/Creatinine Ratio (8-20) Glucose (70-100) mg/dL Lactic Acid 5.2 H* (0.5-2.0) mmol/L Calcium (8.6-10.3) mg/dL Magnesium (1.9-2.7) mg/dL Total Bilirubin (0.2-1.0) mg/dL AST (13-39) U/L ALT (7-52) U/L Alkaline Phosphatase (34-104) U/L Ammonia TNP Total Creatine Kinase (10-223) U/L CK-MB (CK-2) (0.6-6.3) ng/mL Troponin I (<0.04) ng/mL C-Reactive Protein (< 5.00) mg/L B-Natriuretic Peptide 444 H ( - 100) pg/mL Total Protein (6.4-8.9) g/dL Albumin (3.2-5.2) g/dL Globulin (2-4) g/dL Albumin/Globulin Ratio (1-3) Lipase (11.0-82.0) U/L TSH (0.34-5.60) mcIU/mL Acetaminophen mcg/mL Serum Alcohol (<10) mg/dL Microbiology and Other Data: Microbiology 11/27/16 15:33 Nasal Screen MRSA (PCR)([place]) - Final Nasal Mrsa Negative Assess/Plan/Problems-Billing Assessment: 56 yo F with h/o an episode of seizure in 2012 (poss ETOH withdrawal) and ETOH abuse up to 6 months ago presents with 40 lbs wt gain, jaundice, edema found with hepatic failure without encephalopathy, and portal vein thrombosis. Coincidentally 2 weeks ago she sprained her ankle and was taking Tylenol 1000 mg Q4H - Patient Problems (1) Esophageal varices Comment: EGD 11/29/[address] Alberts 2 column of grade I varices Risk of bleeding low but not zero (2) Spontaneous bacterial peritonitis Comment: Started in CTX empirically 11/27/16 with improvement in WBC Would complete empiric therapy x 5 days Fever overnight 11/28/16 - monitor Has not received Albumin, midodrine, or octreotide which can be employed for worsening creatinine Creatinine is improving (3) Acute kidney failure Comment: Potential hepatorenal improving trend (4) Supratherapeutic INR Comment: Dr. Bentley discussed with [facility] 3 days daily IV Vit K (day 23) Would not initiate additional AC for portal vein thrombosis in setting of elevated INR (5) Hyponatremia Comment: Developed while on IVF and lasix resolved with discontinuation of fluids c/w lasix monitor (6) Acute liver failure Comment: [facility] [facility] - [phone] Cirrhosis 2/2 EtOH liver disease decompensated in setting of portal vein thrombosis and Tylenol suspected (although AST/ALT not elevated with APAP and some suggetsion PVT may be chronic in nature). c/w Aldactone and Lasix - uptritrate aldactone BP permitting MELD Na score of 36 (on presentation) predicting >50% 3 month mortality - now improving (7) Tylenol poisoning Comment: [facility] in [place] thinks this played a minor role in liver failure given absent transaminitis. (8) Thrombocytopenia Comment: due to liver failure (9) Portal vein thrombosis Comment: Due to slow onset of symptoms over at least 2-3 weeks this suspected to be chronic. Can consider AC if INR normalizes. Grade I varices are not a contraindication (10) Hypomagnesemia Comment: replacing PO (11) DVT prophylaxis Comment: due to DVT in portal vein , will start tx with Lovenox at a renal dose for prophylaxis Status and Disposition: cont tx for severe liver failure
[2016-11-29] MEDS: Omeprazole CAP* 20 MG PO SCH ×2 (14:57→21:00)
[2016-11-29] MEDS: Enoxaparin(*) 30 MG/0.3 ML SYR SUBCUT SCH (14:58)
[2016-11-29] MEDS: Magnesium Oxide TAB* 400 MG PO SCH (14:58)
[2016-11-29] MEDS: cefTRIAXone VIAL(*) 1,000 MG in NS 0.9% 50 ML* 50 ML IVPB SCH (17:58)
--- NOTE | 2016-11-30 03:17 | PRO ---
DATE OF PROCEDURE: 11/29/16 - ROOM #417 PROCEDURE PERFORMED: EGD. INDICATION: New diagnosis of cirrhosis, evaluation for esophageal varices. REFERRING PHYSICIAN: Ketty Bentley MD MEDICATIONS GIVEN: 25 mg IV Demerol, 4 mg IV Versed. DESCRIPTION OF PROCEDURE: After the EGD procedure including the risks, benefits and alternatives not limited to perforation, surgery and/or were explained to Mrs. Betts, written consent was then obtained, IV medication was given, and a bite block was placed between the teeth. An Olympus gastroscope was then inserted into the patient's mouth, advanced down the esophagus, into the stomach, into the distal duodenum. In the esophagus, at the GE junction, the Z-line was intact. There were 2 small red to purple nodules. I do not know if these were red whale signs as she did have 2 columns of esophageal varices, but they were small. They were definitely grade 1 or less. The scope was advanced through the GE junction and into the body of the stomach. Retroflex view did not reveal any gastric varices. Forward view revealed very mild portal hypertensive gastropathy and a biopsy was obtained for H. pylori. The scope was advanced through a widely patent pylorus, into the duodenal bulb, into the distal duodenum both of which were unremarkable. Scope was withdrawn from the patient. She tolerated the procedure well and was returned to the recovery room in stable condition. IMPRESSION: 1. Complete upper endoscopy into the distal duodenum with biopsies. 2. Grade 1 esophageal varices, non-banded. 3. Mild portal hypertensive gastropathy. 4. I will follow up on all the biopsies and report back to the patient at that time. CC: Dr. Juarez* [id number]/[facility] #: [id number] THELMA
[2016-11-30 05:49] LABS: Hematocrit 23 % (35-47); Hemoglobin 7.9 g/dl (12.0-16.0); Mean Corpuscular HGB Conc 34 g/dl (31-36); Mean Corpuscular Hemoglobin 40 pg (27-31); Mean Platelet Volume 8 um3 (7.4-10.4); Red Blood Count 1.96 10^6/ul (4.0-5.4)
[2016-11-30 05:50] LABS: Comments Flag Yes
[2016-11-30 05:51] LABS: Add Diff/Slide Review? Slide Review Added; Mean Corpuscular Volume 118 fL (80-97); Red Cell Distribution Width 25 % (10.5-15)
[2016-11-30 06:10] LABS: Albumin 1.9 g/dL (3.2-5.2); BUN/Creatinine Ratio 17.8 (8-20); Calcium 7.4 mg/dL (8.6-10.3); Direct Bilirubin 6.2 mg/dL (0.03-0.18); EGFR Non-African American 64.5 (>60); Globulin 2.4 g/dL (2-4); Potassium 3.6 mmol/L (3.5-5.0); Total Protein 4.3 g/dL (6.4-8.9)
[2016-11-30 06:52] LABS: Indirect Bilirubin 6.2 mg/dL (0.3-1.0); Total Bilirubin 12.4 mg/dL (0.2-1.0)
[2016-11-30] MEDS ORDERED: Phytonadione INJ (Adult)* 10 MG/ML 1 ML AMP ONE (08:29)
[2016-11-30] MEDS: Magnesium Oxide TAB* 400 MG PO SCH (08:35)
[2016-11-30] MEDS: Furosemide IV* 10 MG/ML 2 ML VIAL (20 MG) IV SCH (08:35)
[2016-11-30] MEDS: Phytonadione INJ (Adult)* 10 MG in NS 0.9% 50 ML* 50 ML IV SCH (08:35)
[2016-11-30] MEDS: Enoxaparin(*) 30 MG/0.3 ML SYR SUBCUT SCH (08:35)
[2016-11-30] MEDS: Spironolactone TAB* 25 MG PO SCH (08:35)
[2016-11-30] MEDS: Omeprazole CAP* 20 MG PO SCH ×2 (08:35→20:31)
--- NOTE | 2016-11-30 16:31 | PN ---
Subjective Date of Service: 11/30/16 Interval History: Seen and examined this AM Feels stronger than yesterday Has no complaints Anxious to go home Objective Active Medications: Enoxaparin Sodium (Lovenox(*)) 30 mg SUBCUT Q24H [facility] Last Admin: 11/30/16 08:35 Dose: 30 mg Furosemide (Lasix Iv*) 20 mg IV DAILY [facility] Last Admin: 11/30/16 08:35 Dose: 20 mg Guaifenesin (Robitussin*) 5 ml PO Q4H PRN PRN Reason: COUGH Ceftriaxone Sodium 1,000 mg/ (Sodium Chloride) 50 mls @ 200 mls/hr IVPB Q24H [facility] Last Admin: 11/29/16 17:58 Dose: 200 mls/hr Phytonadione 10 mg/ Sodium (Chloride) 51 mls @ 100 mls/hr IV DAILY [facility] Stop: 11/30/16 23:59 Last Admin: 11/30/16 08:35 Dose: 100 mls/hr Magnesium Oxide (Magox 400 Tab*) 800 mg PO DAILY [facility] Last Admin: 11/30/16 08:35 Dose: 800 mg Omeprazole (Prilosec Cap*) 20 mg PO BID [facility] Last Admin: 11/30/16 08:35 Dose: 20 mg Oxycodone HCl (Roxycodone Tab*) 5 mg PO Q6H PRN PRN Reason: pain-moderate to severe Spironolactone (Aldactone Tab*) 50 mg PO DAILY [facility] Last Admin: 11/30/16 08:35 Dose: 50 mg Vital Signs 11/29/16 11/29/16 11/30/16 20:00 23:07 00:14 Temperature 100.6 F 99.6 F Pulse Rate 102 Respiratory 16 16 Rate Blood Pressure 113/41 (mmHg) O2 Sat by Pulse 95 Oximetry 11/30/16 11/30/16 11/30/16 04:05 07:24 08:00 Temperature 99.4 F 99.3 F Pulse Rate 101 Respiratory 16 18 Rate Blood Pressure 110/58 (mmHg) O2 Sat by Pulse 96 Oximetry 11/30/16 11:13 Temperature 98.6 F Pulse Rate 97 Respiratory 16 Rate Blood Pressure 102/43 (mmHg) O2 Sat by Pulse 100 Oximetry Oxygen Devices in Use Now: None Appearance: ambulating back to bed from bathroom, NAD Eyes: - - icterus b/l Ears/Nose/Mouth/Throat: Mucous Membranes Moist Neck: NL Appearance and Movements; NL JVP, Trachea Midline Respiratory: Symmetrical Chest Expansion and Respiratory Effort, - - fine rales left base Cardiovascular: RRR, - - 2/6 RAJI Abdominal: NL Sounds; No Tenderness; No Distention, No Hepatosplenomegaly Lymphatic: No Cervical Adenopathy Extremities: - - 2+ LE edema to above thighs Skin: - - diffusely jaundiced Neurological: Alert and Oriented x 3 Result Diagrams: 11/30/16 05:30 11/30/16 05:29 Additional Lab and Data: Lab Results 11/27/16 11/27/16 11/27/16 Range/Units 12:55 12:55 12:55 WBC 15.8 H (3.5-10.8) 10^3/ul RBC 2.66 L (4.0-5.4) 10^6/ul Hgb 10.5 L (12.0-16.0) g/dl Hct 31 L (35-47) % MCV 117 H (80-97) fL MCH 39 H (27-31) pg MCHC 34 (31-36) g/dl RDW 26 H (10.5-15) % Plt Count 70 L (150-450) 10^3/ul MPV 8 (7.4-10.4) um3 Immature Gran % (Auto) 20 H (0-9) % Neut % (Auto) 86.6 H (38-83) % Lymph % (Auto) 7.9 L (25-47) % [place] % (Auto) 4.2 (1-9) % Eos % (Auto) 1.1 (0-6) % Baso % (Auto) 0.2 (0-2) % Absolute Neuts (auto) 13.7 H (1.5-7.7) 10^3/ul Absolute Lymphs (auto) 1.3 (1.0-4.8) 10^3/ul Absolute Monos (auto) 0.7 (0-0.8) 10^3/ul Absolute Eos (auto) 0.2 (0-0.6) 10^3/ul Absolute Basos (auto) 0 (0-0.2) 10^3/ul Absolute Nucleated RBC 0.01 10^3/ul Neutrophils % 70 (38-83) % Band Neutrophils % 18 H (0-8) % Lymphocytes % 6 L (25-47) % Reactive Lymphs % 2 (0-6) % Monocytes % 2 (0-13) % Metamyelocytes % 1 (0-2) % Myelocytes % 1 (0-1) % Nucleated RBC % 0 Normal RBC Morphology Not Reportable Polychromasia 1+ Macrocytosis 3+ Tear Drop Cells 1+ Josemanuel Cells 2+ Hem Pathologist Commnt Pending INR (Anticoag Therapy) 2.82 H (0.89-1.11) APTT 54.4 H (26.0-36.3) seconds D-Dimer, Quantitative > 1050 H (Less Than 230) ng/mL Sodium 132 L (133-145) mmol/L Potassium 4.0 (3.5-5.0) mmol/L Chloride 102 (101-111) mmol/L Carbon Dioxide 18 L (22-32) mmol/L Anion Gap 12 H (2-11) mmol/L BUN 21 (6-24) mg/dL Creatinine 1.64 H (0.51-0.95) mg/dL Est GFR ( Amer) 41.5 (>60) Est GFR (Non-Af Amer) 32.3 (>60) BUN/Creatinine Ratio 12.8 (8-20) Glucose 96 (70-100) mg/dL Lactic Acid (0.5-2.0) mmol/L Calcium 8.3 L (8.6-10.3) mg/dL Magnesium 1.6 L (1.9-2.7) mg/dL Total Bilirubin 17.70 H* (0.2-1.0) mg/dL AST 40 H (13-39) U/L ALT 21 (7-52) U/L Alkaline Phosphatase 161 H (34-104) U/L Ammonia Total Creatine Kinase 65 (10-223) U/L CK-MB (CK-2) 3.0 (0.6-6.3) ng/mL Troponin I 0.04 H* (<0.04) ng/mL C-Reactive Protein 79.73 H (< 5.00) mg/L B-Natriuretic Peptide ( - 100) pg/mL Total Protein 5.6 L (6.4-8.9) g/dL Albumin 2.5 L (3.2-5.2) g/dL Globulin 3.1 (2-4) g/dL Albumin/Globulin Ratio 0.8 L (1-3) Lipase 18 (11.0-82.0) U/L TSH 2.12 (0.34-5.60) mcIU/mL Acetaminophen 66 H* mcg/mL Serum Alcohol < 10 (<10) mg/dL 11/27/16 11/27/16 Range/Units 12:55 12:55 WBC (3.5-10.8) 10^3/ul RBC (4.0-5.4) 10^6/ul Hgb (12.0-16.0) g/dl Hct (35-47) % MCV (80-97) fL MCH (27-31) pg MCHC (31-36) g/dl RDW (10.5-15) % Plt Count (150-450) 10^3/ul MPV (7.4-10.4) um3 Immature Gran % (Auto) (0-9) % Neut % (Auto) (38-83) % Lymph % (Auto) (25-47) % [place] % (Auto) (1-9) % Eos % (Auto) (0-6) % Baso % (Auto) (0-2) % Absolute Neuts (auto) (1.5-7.7) 10^3/ul Absolute Lymphs (auto) (1.0-4.8) 10^3/ul Absolute Monos (auto) (0-0.8) 10^3/ul Absolute Eos (auto) (0-0.6) 10^3/ul Absolute Basos (auto) (0-0.2) 10^3/ul Absolute Nucleated RBC 10^3/ul Neutrophils % (38-83) % Band Neutrophils % (0-8) % Lymphocytes % (25-47) % Reactive Lymphs % (0-6) % Monocytes % (0-13) % Metamyelocytes % (0-2) % Myelocytes % (0-1) % Nucleated RBC % Normal RBC Morphology Polychromasia Macrocytosis Tear Drop Cells Josemanuel Cells Hem Pathologist Commnt INR (Anticoag Therapy) (0.89-1.11) APTT (26.0-36.3) seconds D-Dimer, Quantitative (Less Than 230) ng/mL Sodium (133-145) mmol/L Potassium (3.5-5.0) mmol/L Chloride (101-111) mmol/L Carbon Dioxide (22-32) mmol/L Anion Gap (2-11) mmol/L BUN (6-24) mg/dL Creatinine (0.51-0.95) mg/dL Est GFR ( Amer) (>60) Est GFR (Non-Af Amer) (>60) BUN/Creatinine Ratio (8-20) Glucose (70-100) mg/dL Lactic Acid 5.2 H* (0.5-2.0) mmol/L Calcium (8.6-10.3) mg/dL Magnesium (1.9-2.7) mg/dL Total Bilirubin (0.2-1.0) mg/dL AST (13-39) U/L ALT (7-52) U/L Alkaline Phosphatase (34-104) U/L Ammonia TNP Total Creatine Kinase (10-223) U/L CK-MB (CK-2) (0.6-6.3) ng/mL Troponin I (<0.04) ng/mL C-Reactive Protein (< 5.00) mg/L B-Natriuretic Peptide 444 H ( - 100) pg/mL Total Protein (6.4-8.9) g/dL Albumin (3.2-5.2) g/dL Globulin (2-4) g/dL Albumin/Globulin Ratio (1-3) Lipase (11.0-82.0) U/L TSH (0.34-5.60) mcIU/mL Acetaminophen mcg/mL Serum Alcohol (<10) mg/dL Microbiology and Other Data: Microbiology 11/27/16 15:33 Nasal Screen MRSA (PCR)([place]) - Final Nasal Mrsa Negative Assess/Plan/Problems-Billing Assessment: 56 yo F with h/o an episode of seizure in 2011 (poss ETOH withdrawal) and ETOH abuse up to 6 months ago presents with 40 lbs wt gain, jaundice, edema found with hepatic failure without encephalopathy, and portal vein thrombosis. Coincidentally 2 weeks ago she sprained her ankle and was taking Tylenol 1000 mg Q4H - Patient Problems (1) Esophageal varices Comment: EGD 11/29/[address] Lemberg 2 column of grade I varices Risk of bleeding low but not zero (2) Spontaneous bacterial peritonitis Comment: Started in CTX empirically 11/27/16 with improvement in WBC Would complete empiric therapy x 5 days (day 4) Fever overnight 11/28/16 and again 11/29- monitor Has not received Albumin, midodrine, or octreotide which can be employed for worsening creatinine Creatinine is improving (3) Acute kidney failure Comment: Potential hepatorenal improving trend (4) Supratherapeutic INR Comment: Dr. 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 c/w Aldactone and Lasix - uptritrate aldactone BP permitting MELD Na score of 36 (on presentation) predicting >50% 3 month mortality - now improving (7) Tylenol poisoning Comment: [facility] in [place] thinks this played a minor role in liver failure given absent transaminitis. (8) Thrombocytopenia Comment: due to liver failure (9) Portal vein thrombosis Comment: Due to slow onset of symptoms over at least 2-3 weeks this suspected to be chronic. Can consider AC if INR normalizes. Grade I varices are not a contraindication Close eye on thrombocytopenia if AC initiated (10) Hypomagnesemia Comment: replacing PO (11) DVT prophylaxis Comment: SCDs. Stop lovenox with elevated INR and thrombocytopenia Status and Disposition: cont tx for severe liver failure and last day ceftriaxone
[2016-11-30] MEDS: cefTRIAXone VIAL(*) 1,000 MG in NS 0.9% 50 ML* 50 ML IVPB SCH (17:09)
[2016-12-01 06:38] LABS: Hematocrit 24 % (35-47); Hemoglobin 8.3 g/dl (12.0-16.0); Mean Corpuscular HGB Conc 35 g/dl (31-36); Mean Corpuscular Hemoglobin 40 pg (27-31); Mean Platelet Volume 9 um3 (7.4-10.4); Red Blood Count 2.06 10^6/ul (4.0-5.4); Red Cell Distribution Width 25 % (10.5-15); White Blood Count 6.9 10^3/ul (3.5-10.8)
[2016-12-01 06:47] LABS: Comments Flag Yes; Mean Corpuscular Volume 117 fL (80-97)
[2016-12-01 06:48] LABS: Add Diff/Slide Review? Slide Review Added
[2016-12-01 06:55] LABS: Albumin 1.8 g/dL (3.2-5.2); BUN/Creatinine Ratio 13.2 (8-20); Calcium 7.4 mg/dL (8.6-10.3); Direct Bilirubin 5.4 mg/dL (0.03-0.18); EGFR African American 100.9 (>60); EGFR Non-African American 78.4 (>60); Globulin 2.5 g/dL (2-4); Indirect Bilirubin 6.3 mg/dL (0.3-1.0); Potassium 3.5 mmol/L (3.5-5.0); Total Bilirubin 11.7 mg/dL (0.2-1.0); Total Protein 4.3 g/dL (6.4-8.9)
[2016-12-01] MEDS: Omeprazole CAP* 20 MG PO SCH ×2 (09:52→20:22)
[2016-12-01] MEDS: Magnesium Oxide TAB* 400 MG PO SCH (09:52)
[2016-12-01] MEDS: Spironolactone TAB* 25 MG PO SCH (09:53)
[2016-12-01] MEDS: Enoxaparin(*) 30 MG/0.3 ML SYR SUBCUT SCH (09:53)
[2016-12-01] MEDS: Furosemide IV* 10 MG/ML 2 ML VIAL (20 MG) IV SCH (09:55)
--- NOTE | 2016-12-01 12:13 | PN ---
Subjective Date of Service: 12/01/16 Interval History: Patient seen this afternoon. Says she is feeling better overall. Edema improving. Eating OK, moving bowels and urinating. Denies fever or chills, no abdominal pain. Family History: Unchanged from Admission Social History: Unchanged from Admission Past Medical History: Unchanged from Admission Objective Active Medications: Enoxaparin Sodium (Lovenox(*)) 30 mg SUBCUT Q24H [facility] Furosemide (Lasix Iv*) 20 mg IV DAILY [facility] Guaifenesin (Robitussin*) 5 ml PO Q4H PRN Ceftriaxone Sodium 1,000 mg/ (Sodium Chloride) 50 mls @ 200 mls/hr IVPB Q24H [facility] Magnesium Oxide (Magox 400 Tab*) 800 mg PO DAILY [facility] Omeprazole (Prilosec Cap*) 20 mg PO BID [facility] Oxycodone HCl (Roxycodone Tab*) 5 mg PO Q6H PRN Spironolactone (Aldactone Tab*) 50 mg PO DAILY [facility] Vital Signs 11/30/16 11/30/16 11/30/16 16:04 20:00 22:05 Temperature 98.3 F Pulse Rate 98 Respiratory 18 20 20 Rate Blood Pressure 116/59 (mmHg) O2 Sat by Pulse 97 Oximetry 11/30/16 12/01/16 12/01/16 23:04 07:27 11:25 Temperature 98.7 F 98.4 F Pulse Rate 103 91 Respiratory 18 20 20 Rate Blood Pressure 115/48 114/56 (mmHg) O2 Sat by Pulse 94 98 Oximetry Oxygen Devices in Use Now: None Appearance: Middle-aged, F, laying in bed in NAD Eyes: - - Icteric sclera Ears/Nose/Mouth/Throat: Mucous Membranes Moist Neck: NL Appearance and Movements; NL JVP Respiratory: Symmetrical Chest Expansion and Respiratory Effort, Clear to Auscultation Cardiovascular: NL Sounds; No Murmurs; No JVD, RRR Abdominal: - - Mild distension, soft, NT, BS+ Lymphatic: No Cervical Adenopathy Extremities: - - B/L LE pitting edema to upper shins Skin: - - jaundice Neurological: Alert and Oriented x 3 Result Diagrams: 12/01/16 06:19 12/01/16 06:19 Additional Lab and Data: Lab Results 11/27/16 11/27/16 11/27/16 Range/Units 12:55 12:55 12:55 WBC 15.8 H (3.5-10.8) 10^3/ul RBC 2.66 L (4.0-5.4) 10^6/ul Hgb 10.5 L (12.0-16.0) g/dl Hct 31 L (35-47) % MCV 117 H (80-97) fL MCH 39 H (27-31) pg MCHC 34 (31-36) g/dl RDW 26 H (10.5-15) % Plt Count 70 L (150-450) 10^3/ul MPV 8 (7.4-10.4) um3 Immature Gran % (Auto) 20 H (0-9) % Neut % (Auto) 86.6 H (38-83) % Lymph % (Auto) 7.9 L (25-47) % [place] % (Auto) 4.2 (1-9) % Eos % (Auto) 1.1 (0-6) % Baso % (Auto) 0.2 (0-2) % Absolute Neuts (auto) 13.7 H (1.5-7.7) 10^3/ul Absolute Lymphs (auto) 1.3 (1.0-4.8) 10^3/ul Absolute Monos (auto) 0.7 (0-0.8) 10^3/ul Absolute Eos (auto) 0.2 (0-0.6) 10^3/ul Absolute Basos (auto) 0 (0-0.2) 10^3/ul Absolute Nucleated RBC 0.01 10^3/ul Neutrophils % 70 (38-83) % Band Neutrophils % 18 H (0-8) % Lymphocytes % 6 L (25-47) % Reactive Lymphs % 2 (0-6) % Monocytes % 2 (0-13) % Metamyelocytes % 1 (0-2) % Myelocytes % 1 (0-1) % Nucleated RBC % 0 Normal RBC Morphology Not Reportable Polychromasia 1+ Macrocytosis 3+ Tear Drop Cells 1+ Josemanuel Cells 2+ Hem Pathologist Commnt Pending INR (Anticoag Therapy) 2.82 H (0.89-1.11) APTT 54.4 H (26.0-36.3) seconds D-Dimer, Quantitative > 1050 H (Less Than 230) ng/mL Sodium 132 L (133-145) mmol/L Potassium 4.0 (3.5-5.0) mmol/L Chloride 102 (101-111) mmol/L Carbon Dioxide 18 L (22-32) mmol/L Anion Gap 12 H (2-11) mmol/L BUN 21 (6-24) mg/dL Creatinine 1.64 H (0.51-0.95) mg/dL Est GFR ( Amer) 41.5 (>60) Est GFR (Non-Af Amer) 32.3 (>60) BUN/Creatinine Ratio 12.8 (8-20) Glucose 96 (70-100) mg/dL Lactic Acid (0.5-2.0) mmol/L Calcium 8.3 L (8.6-10.3) mg/dL Magnesium 1.6 L (1.9-2.7) mg/dL Total Bilirubin 17.70 H* (0.2-1.0) mg/dL AST 40 H (13-39) U/L ALT 21 (7-52) U/L Alkaline Phosphatase 161 H (34-104) U/L Ammonia Total Creatine Kinase 65 (10-223) U/L CK-MB (CK-2) 3.0 (0.6-6.3) ng/mL Troponin I 0.04 H* (<0.04) ng/mL C-Reactive Protein 79.73 H (< 5.00) mg/L B-Natriuretic Peptide ( - 100) pg/mL Total Protein 5.6 L (6.4-8.9) g/dL Albumin 2.5 L (3.2-5.2) g/dL Globulin 3.1 (2-4) g/dL Albumin/Globulin Ratio 0.8 L (1-3) Lipase 18 (11.0-82.0) U/L TSH 2.12 (0.34-5.60) mcIU/mL Acetaminophen 66 H* mcg/mL Serum Alcohol < 10 (<10) mg/dL 11/27/16 11/27/16 Range/Units 12:55 12:55 WBC (3.5-10.8) 10^3/ul RBC (4.0-5.4) 10^6/ul Hgb (12.0-16.0) g/dl Hct (35-47) % MCV (80-97) fL MCH (27-31) pg MCHC (31-36) g/dl RDW (10.5-15) % Plt Count (150-450) 10^3/ul MPV (7.4-10.4) um3 Immature Gran % (Auto) (0-9) % Neut % (Auto) (38-83) % Lymph % (Auto) (25-47) % [place] % (Auto) (1-9) % Eos % (Auto) (0-6) % Baso % (Auto) (0-2) % Absolute Neuts (auto) (1.5-7.7) 10^3/ul Absolute Lymphs (auto) (1.0-4.8) 10^3/ul Absolute Monos (auto) (0-0.8) 10^3/ul Absolute Eos (auto) (0-0.6) 10^3/ul Absolute Basos (auto) (0-0.2) 10^3/ul Absolute Nucleated RBC 10^3/ul Neutrophils % (38-83) % Band Neutrophils % (0-8) % Lymphocytes % (25-47) % Reactive Lymphs % (0-6) % Monocytes % (0-13) % Metamyelocytes % (0-2) % Myelocytes % (0-1) % Nucleated RBC % Normal RBC Morphology Polychromasia Macrocytosis Tear Drop Cells [place] Cells Hem Pathologist Commnt INR (Anticoag Therapy) (0.89-1.11) APTT (26.0-36.3) seconds D-Dimer, Quantitative (Less Than 230) ng/mL Sodium (133-145) mmol/L Potassium (3.5-5.0) mmol/L Chloride (101-111) mmol/L Carbon Dioxide (22-32) mmol/L Anion Gap (2-11) mmol/L BUN (6-24) mg/dL Creatinine (0.51-0.95) mg/dL Est GFR ( Amer) (>60) Est GFR (Non-Af Amer) (>60) BUN/Creatinine Ratio (8-20) Glucose (70-100) mg/dL Lactic Acid 5.2 H* (0.5-2.0) mmol/L Calcium (8.6-10.3) mg/dL Magnesium (1.9-2.7) mg/dL Total Bilirubin (0.2-1.0) mg/dL AST (13-39) U/L ALT (7-52) U/L Alkaline Phosphatase (34-104) U/L Ammonia TNP Total Creatine Kinase (10-223) U/L CK-MB (CK-2) (0.6-6.3) ng/mL Troponin I (<0.04) ng/mL C-Reactive Protein (< 5.00) mg/L B-Natriuretic Peptide 444 H ( - 100) pg/mL Total Protein (6.4-8.9) g/dL Albumin (3.2-5.2) g/dL Globulin (2-4) g/dL Albumin/Globulin Ratio (1-3) Lipase (11.0-82.0) U/L TSH (0.34-5.60) mcIU/mL Acetaminophen mcg/mL Serum Alcohol (<10) mg/dL Microbiology and Other Data: Microbiology 11/27/16 15:33 Nasal Screen MRSA (PCR)([place]) - Final Nasal [facility] Negative Assess/Plan/Problems-Billing Assessment: 56 yo F with h/o an episode of seizure in 2011 (poss ETOH withdrawal) and ETOH abuse up to 6 months ago presents with 40 lbs wt gain, jaundice, edema found with hepatic failure without encephalopathy, and portal vein thrombosis. 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 c/w Aldactone and Lasix - uptritrate aldactone BP permitting MELD Na score of 36 (on presentation) predicting >50% 3 month mortality - now improving (2) Esophageal varices Current Visit: Yes Comment: EGD 11/29/[address] Alberts 2 column of grade I varices Risk of bleeding low but not zero (3) Portal vein thrombosis Current Visit: Yes Comment: Unclear whether this is acute vs chronic. Awaiting call back from [facility] for further recommendations regarding anticoagulation. (4) Spontaneous bacterial peritonitis Current Visit: Yes Comment: Started in CTX empirically 11/27/16 with improvement in WBC Will complete empiric therapy x 5 days today Fever overnight 11/28/16 and again 11/29, no further fevers Has not received Albumin, midodrine, or octreotide which can be employed for worsening creatinine Creatinine is improving (5) Acute kidney failure Current Visit: Yes Comment: Potential hepatorenal improving trend (6) Supratherapeutic INR Current Visit: Yes Comment: Dr. Bentley discussed with [facility] S/P 3 days daily IV Vit K (7) Thrombocytopenia Current Visit: Yes Comment: due to liver failure (8) DVT prophylaxis Current Visit: Yes Comment: Lovenox Status and Disposition: Potential d/c today vs tomorrow pending discussion with [facility]
[2016-12-01] MEDS ORDERED: Heparin DRIP 25,000 UNITS(*) 25,000 UNITS/500 ML BAG IVPB SCH (14:15)
[2016-12-01] MEDS ORDERED: Heparin VIAL(*) 5000 UNITS/ML VIAL (FIVE THOUSAND) IV SCH (15:00)
[2016-12-01 16:15] LABS: Comments Flag Yes; Hematocrit 27 % (35-47); Mean Corpuscular HGB Conc 34 g/dl (31-36); Mean Corpuscular Hemoglobin 41 pg (27-31); Mean Corpuscular Volume 119 fL (80-97); Mean Platelet Volume 8 um3 (7.4-10.4); Red Blood Count 2.22 10^6/ul (4.0-5.4); White Blood Count 9.3 10^3/ul (3.5-10.8)
[2016-12-01 16:16] LABS: Add Diff/Slide Review? Slide Review Added; Red Cell Distribution Width 25 % (10.5-15)
[2016-12-01] MEDS: cefTRIAXone VIAL(*) 1,000 MG in NS 0.9% 50 ML* 50 ML IVPB SCH (18:22)
[2016-12-02 08:02] VITALS: BP 110/70
[2016-12-02 08:44] LABS: Hematocrit 23 % (35-47); Mean Corpuscular HGB Conc 35 g/dl (31-36); Mean Corpuscular Hemoglobin 41 pg (27-31); Mean Corpuscular Volume 118 fL (80-97); Mean Platelet Volume 9 um3 (7.4-10.4); Red Blood Count 1.94 10^6/ul (4.0-5.4); Red Cell Distribution Width 25 % (10.5-15); White Blood Count 8.2 10^3/ul (3.5-10.8)
[2016-12-02 08:56] LABS: Add Diff/Slide Review? Slide Review Added; Comments Flag Yes
[2016-12-02] MEDS: Spironolactone TAB* 25 MG PO SCH (08:59)
[2016-12-02] MEDS: Magnesium Oxide TAB* 400 MG PO SCH (08:59)
[2016-12-02] MEDS: Omeprazole CAP* 20 MG PO SCH (08:59)
[2016-12-02] MEDS ORDERED: Furosemide TAB* 40 MG PO SCH (09:00)
--- NOTE | 2016-12-02 10:32 | DCNOTE ---
Patient seen this morning. Says she feels well. Had a brief nosebleed this morning. No blood in the stool or urine. Abdominal pain and swelling improving. On exam, jaundiced, RRR, s1 and s2 present, no m/g/r, abd soft, mild distension , non-tender, B/L LE pitting edema. Will discharge home on low dose Eliquis as well as diuretic therapy. Will need PCP and GI follow-up.
[2016-12-02] MEDS ORDERED: Apixaban* 2.5 MG TAB PO ONE (10:39)
--- NOTE | 2016-12-03 02:17 | DS ---
DISCHARGE SUMMARY: DATE OF ADMISSION: 11/27/16 DATE OF DISCHARGE: 12/02/16 PRINCIPAL DISCHARGE DIAGNOSES: 1. Acute liver failure. 2. Cirrhosis. 3. Portal vein thrombosis. DISCHARGE MEDICATION REGIMEN: 1. Eliquis 2.5 mg by mouth 2 times daily. 2. Lasix 40 mg by mouth daily. 3. Spironolactone 50 mg by mouth daily. STUDIES DONE DURING HOSPITALIZATION: 1. Chest x-ray, impression: Small bibasilar infiltrate and small left pleural effusion. 2. Left lower extremity Doppler, impression: No evidence for DVT. 3. Ankle x-ray, impression: Soft tissue swelling. No fracture is seen. 4. CT of abdomen and pelvis without contrast, impression: Small bilateral pleural effusions. Moderate amount of ascites, distended gallbladder, cholelithiasis, mild thickening of the wall, the ascending colon suggestive of colitis, splenomegaly, enlarged retroperitoneal lymph nodes in the lower abdomen and pelvis, chronic vertebral body compression fractures. 5. Ultrasound of right upper quadrant, impression: Ascites, portal vein thrombosis. Findings most consistent with cirrhosis. 6. Upper endoscopy, impression: Complete upper endoscopy and to the distal duodenum with biopsies, grade 1 esophageal varices, non-banded, mild portal hypertensive gastropathy. CONSULTANTS DURING HOSPITALIZATION: Dr. Jaleel Avalos, Gastroenterology. HISTORY OF PRESENT ILLNESS AND HOSPITAL SUMMARY: Please see the history and physical by Dr. Ketty Bentley for further details. Briefly, Ms. Betts is a 56 - year-old female with a past medical history of alcohol abuse, who presented to the hospital with progressive swelling, some abdominal discomfort, and jaundice. The patient was found to have an elevated bilirubin at 17 and some renal insufficiency. She had been taking increased doses of Tylenol and her Tylenol levels were elevated at 66. She was initially admitted to the ICU and treated with Mucomyst. GI was consulted and our team is also in talks with [facility], it was not felt that there was need to be any urgent transfer at this time. Additional imaging showed portal vein thrombosis. The patient was seen by GI, who felt that the cirrhotic liver was probably due to her significant alcohol use, although the reason for decompensation is unclear. As noted, imaging above showed a portal vein thrombosis is possible as a complication of her cirrhosis. Prior to anticoagulation, the patient underwent an EGD that showed mild esophageal varices and was not felt to be a high risk for anticoagulation. She was started on heparin drip and monitored for 24 hours. There were no signs of bleeding, so the patient was discharged on a low dose of Eliquis 2.5 mg by mouth 2 times daily. The patient was encouraged to stop drinking completely. She will need to follow up with GI and will make a new PCP appointment, so she gets close followup. TIME SPENT: Total time spent on this discharge 45 minutes. This is summary of the hospitalization. Please see full medical record for further details. [id number] #: [id number] [facility]
== END 2016-12-02 12:05 | disposition home or self-care (01) | DRG 280 ==
LOC: ED 11:40 → ICU 14:06 → MED 11-28 15:56
PROVIDERS: ADMIT Internal Medicine; ATTEND Hospitalist
PROC: 0DB98ZX Excision of Duodenum, Via Natural or Artificial Opening Endoscopic, Diagnostic (ICD-10-PCS; principal; 2016-11-29)
DX: K70.31 Alcoholic cirrhosis of liver with ascites (principal); I81 Portal vein thrombosis; K70.40 Alcoholic hepatic failure without coma; G93.40 Encephalopathy, unspecified; N17.9 Acute kidney failure, unspecified; J90 Pleural effusion, not elsewhere classified; K65.2 Spontaneous bacterial peritonitis; D68.9 Coagulation defect, unspecified; E87.1 Hypo-osmolality and hyponatremia; K76.6 Portal hypertension; I85.10 Secondary esophageal varices without bleeding; M48.50XA Collapsed vertebra, not elsewhere classified, site unspecified, initial encounter for fracture; Z79.01 Long term (current) use of anticoagulants; K80.20 Calculus of gallbladder without cholecystitis without obstruction; I10 Essential (primary) hypertension; Z91.018 Allergy to other foods; Z91.013 Allergy to seafood; Z91.030 Bee allergy status; Z91.048 Other nonmedicinal substance allergy status; E83.42 Hypomagnesemia; D72.829 Elevated white blood cell count, unspecified; D69.6 Thrombocytopenia, unspecified; M25.572 Pain in left ankle and joints of left foot; D69.59 Other secondary thrombocytopenia; T39.1X1A Poisoning by 4-Aminophenol derivatives, accidental (unintentional), initial encounter; K31.89 Other diseases of stomach and duodenum; R16.1 Splenomegaly, not elsewhere classified; R59.0 Localized enlarged lymph nodes; Y92.009 Unspecified place in unspecified non-institutional (private) residence as the place of occurrence of the external cause; R04.0 Epistaxis
CPT/HCPCS: 36415; 71010; 74176; 80048; 80053; 80074; 80076; 80320; 80329; 82140; 82550; 82553; 83540; 83550; 83605; 83690; 83735; 83880; 84443; 84484; 84520; 85025; 85060; 85379; 85610; 85730; 86038; 86140; 87040; 87077; 87641; 93975; A9270-GY; G0480; J0132; J0696; J1644; J1650; J1940; J2175; J2250; J3430; J3475; J7060

== ENCOUNTER → 2016-12-07 05:42 | Emergency (ER) | payer BC ==
[~2016-12-07 05:42] MED LIST: Acetaminophen TAB* 325 MG PO ONE; Iodixanol* (CONTRAST) 320 MG/ML 100 ML SDV IV ONE; NS 0.9% 1000 ML* 1,000 ML IV ONE
--- NOTE | 2016-12-07 06:34 | ED ---
dinora Medeiros Timothy, scribed for MarinsharonJim on 12/07/16 at 0609 . Abdominal Pain/Female - HPI Summary HPI Summary: Nicole Betts is a 56 yo female presenting to [facility] with 8/10 abd and upper right flank pain since 0100 today. She also c/o nausea. she has self-medicated with an ice pack. She denies vomiting. She has acute liver failure. Her MHx includes HTN, blood clot in the liver Dx last week, and jaundice. - History of Current Complaint Stated Complaint: ABD PAIN Time Seen by Provider: 12/07/16 06:09 Hx Obtained From: Patient Onset/Duration: Sudden Onset, Lasting Hours, Still Present Timing: Constant Severity Initially: Moderate Severity Currently: Moderate Pain Intensity: 8 Pain Scale Used: 0-10 Numeric Location: Discrete At: RUQ, Discrete At: LUQ, Flank - right Radiates: No Associated Signs and Symptoms: Positive: Nausea, Diarrhea. Negative: Vomiting Allergies/Adverse Reactions: Allergies Allergy/AdvReac Type Severity Reaction Status Date / Time Bee Venom Allergy Fever Verified 11/27/16 12:00 Tree Nuts Allergy Hives Verified 12/02/16 10:43 environmental/ fragrances Allergy Dizziness Uncoded 11/27/16 11:59 seafood Allergy Hives Uncoded 11/27/16 12:00 PMH/Surg Hx/FS Hx/Imm Hx Cardiovascular History: Reports: Hx Hypertension GI History: Reports: Hx Jaundice - new onset - Surgical History Surgery Procedure, Year, and Place: EYE SURGERY Infectious Disease History: No Infectious Disease History: Denies: Traveled Outside the [place] in Last 30 Days - Family History Known Family History: Positive: Unknown - Pt is adopted - Social History Alcohol Use: suspected etoh abuse, pt not forthcoming Substance Use Type: Reports: None Smoking Status (MU): Never Smoked Tobacco Review of Systems Constitutional: Negative Eyes: Negative ENT: Negative Cardiovascular: Negative Respiratory: Negative Positive: Abdominal Pain, Diarrhea, Nausea Positive: flank pain - upper right Musculoskeletal: Negative Skin: Negative Neurological: Negative Psychological: Normal All Other Systems Reviewed And Are Negative: Yes Physical Exam Triage Information Reviewed: Yes Vital Signs On Initial Exam: Initial Vitals Temp Pulse Resp BP Pulse Ox 98.5 F 80 16 119/60 98 12/07/16 05:57 12/07/16 05:57 12/07/16 05:57 12/07/16 05:57 12/07/16 05:57 Vital Signs Reviewed: Yes Appearance: Positive: Well-Appearing, No Pain Distress, Well-Nourished Skin: Positive: Warm, Dry, Jaundiced Head/Face: Positive: Normal Head/Face Inspection Eyes: Positive: EOMI, MELONIE, Other: - icteric sclera ENT: Positive: Normal ENT inspection Neck: Positive: Supple, Nontender Respiratory/Lung Sounds: Positive: Clear to Auscultation, Breath Sounds Present Cardiovascular: Positive: RRR, Pulses are Symmetrical in both Upper and Lower Extremities Abdomen Description: Positive: Soft. Negative: Nontender - tenderness in RUQ and LUQ Bowel Sounds: Positive: Present Musculoskeletal: Positive: Normal, Strength/ROM Intact Neurological: Positive: Normal, Sensory/Motor Intact, Alert, Oriented to Person Place, Time Psychiatric: Positive: Normal Diagnostics - Vital Signs Vital Signs Temp Pulse Resp BP Pulse Ox 12/07/16 05:57 98.5 F 80 16 119/60 98 - Laboratory Lab Statement: Any lab studies that have been ordered have been reviewed, and results considered in the medical decision making process. - Radiology CXR Xray Interpretation: No Acute Changes - Impression: Haziness in the right lower lobe. Radiology Interpretation Completed By: ED Physician Abdominal Pain Fem Course/Dx - Course Course Of Treatment: Nicole Betts is a 56 yo female presenting to [facility] with 8 /10 abd and upper right flank pain since 0100 this morning. She is signed out to Dr. Flowers at [address] A/P, EKG, and lab work. - Diagnoses Provider Diagnoses: Jaundice, Abdominal pain, Liver failure Discharge - Discharge Plan Condition: Guarded Disposition: OTHER Discharge Disposition Comment: signed out dr hernandez Referrals: Lorri Juarez MD [Primary Care Provider] - The documentation as recorded by the dinora kwong Timothy accurately reflects the service I personally performed and the decisions made by me, Jim Bustos.
[2016-12-07 06:40] LABS: Hematocrit 26 % (35-47); Hemoglobin 9.2 g/dl (12.0-16.0); Mean Corpuscular HGB Conc 35 g/dl (31-36); Mean Corpuscular Hemoglobin 43 pg (27-31); Mean Platelet Volume 9 um3 (7.4-10.4); Red Blood Count 2.17 10^6/ul (4.0-5.4); White Blood Count 8.3 10^3/ul (3.5-10.8)
[2016-12-07 06:42] LABS: Comments Flag Yes; Mean Corpuscular Volume 120 fL (80-97)
[2016-12-07 06:43] LABS: Add Diff/Slide Review? Slide Review Added; Red Cell Distribution Width 23 % (10.5-15)
[2016-12-07 06:50] LABS: Ammonia 39 mol/L (16-53)
[2016-12-07 06:52] LABS: Albumin 2.3 g/dL (3.2-5.2); BUN/Creatinine Ratio 9.6 (8-20); C Reactive Protein 19.98 mg/L (< 5.00); Calcium 7.9 mg/dL (8.6-10.3); EGFR African American 91.1 (>60); EGFR Non-African American 70.9 (>60); Potassium 3.5 mmol/L (3.5-5.0); Total Protein 5.3 g/dL (6.4-8.9)
[2016-12-07 06:53] LABS: Total Bilirubin 14.5 mg/dL (0.2-1.0)
[2016-12-07 06:54] LABS: Troponin I 0.03 ng/mL (<0.04)
[2016-12-07 06:56] LABS: B Type Natriuretic Peptide 125 pg/mL
[2016-12-07 07:22] LABS: Magnesium 1.5 mg/dL (1.9-2.7)
--- NOTE | 2016-12-07 08:13 | RAD ---
HISTORY: Abdominal pain COMPARISONS: November 27, 2016 VIEWS:1: Single frontal portable view of the chest at 6:35 AM FINDINGS: LINES AND TUBES: None. CARDIOMEDIASTINAL SILHOUETTE: The cardiomediastinal silhouette is normal for portable technique. PLEURA: The costophrenic angles are sharp. No pleural abnormalities are noted. LUNG PARENCHYMA: There is patchy alveolar opacification of the right lung base, similar to the previous examination ABDOMEN: The upper abdomen is clear. There is no subphrenic gas. BONES AND SOFT TISSUES: No bone or soft tissue abnormalities are noted. IMPRESSION: PERSISTENT RIGHT BASILAR ATELECTASIS VERSUS CONSOLIDATION. RECOMMEND FOLLOW-UP UNTIL RESOLUTION TO EXCLUDE UNDERLYING PULMONARY PARENCHYMAL PATHOLOGY
[2016-12-07 08:41] LABS: Urine Bilirubin 1+ (Negative); Urine Glucose Negative (Negative); Urine Nitrite Negative (Negative)
--- NOTE | 2016-12-07 08:59 | RAD ---
CLINICAL HISTORY: Abdominal pain, appendicitis COMPARISON: November 27, 2016 TECHNIQUE: Multiple contiguous axial CT scans were obtained of the abdomen and pelvis after the administration of intravenous contrast. Coronal and sagittal multiplanar reformations are submitted for review. Oral contrast was administered. Delayed images were obtained through the abdomen FINDINGS: LUNG BASES: There is moderate right and small left pleural effusion. LIVER: The liver has a micronodular contour. There are multiple varices along the retroperitoneum. BILE DUCTS: There is no intrahepatic or extrahepatic biliary dilatation. GALLBLADDER: There is mild gallbladder wall thickening. Multiple gallstones are noted. PANCREAS: The pancreas is normal, without mass or ductal dilatation. SPLEEN: The spleen is enlarged measuring up to 17 cm. UPPER GI TRACT: Evaluation of the gastrointestinal tract is limited by incomplete gastric distention. There is 2 cm diverticulum of the second stage of the duodenum. SMALL BOWEL AND MESENTERY: The small bowel is normal in contour, course, and caliber. There is no obstruction or dilatation. COLON: There is mucosal thickening of the cecum and proximal ascending colon. There is a tubular, vermiform, hollow viscus that is blind ending, and originates from the cecum, consistent with a normal appendix. There is no periappendiceal inflammatory change. This is best seen on axial images 95 through 110 ADRENALS: Normal bilaterally. KIDNEYS: The kidneys are normal in shape, size, contour, and axis. There is no hydronephrosis or nephrolithiasis. BLADDER: The bladder is incompletely distended but is grossly normal. PELVIC ORGANS: There is prominence of the vasculature along the broad ligament bilaterally. AORTA: The aorta is normal. IVC: Unremarkable LYMPH NODES: There is no lymphadenopathy by size criteria. The larger compared to the left as noted on the previous examination corresponding to varices on the current examination. ABDOMINAL WALL: There is no evidence for abdominal wall hernia. BONES AND SOFT TISSUES: There are stable compression deformities of the spine OTHER: There is a moderate amount of ascites IMPRESSION: 1. NORMAL APPENDIX. 2. CIRRHOTIC LIVER WITH SPLENOMEGALY MULTIPLE LARGE RETROPERITONEAL VARICES, CONSISTENT WITH PORTAL HYPERTENSION. 3. BILATERAL PLEURAL EFFUSIONS. 4. CHOLELITHIASIS. 5. ASCITES. 6. THERE IS MUCOSAL THICKENING OF THE PROXIMAL ASCENDING COLON. CONSIDER CORRELATION WITH DIRECT VISUALIZATION..
--- NOTE | 2016-12-07 10:55 | CONSULT ---
Subjective Date of Service: 12/07/16 Interval History: 56 yo F with hx of cirrhosis and portal vein thrombosis well known to me from recent admission p/w abdominal pain. She states since discharge she has been feeling better and better each day. She has noticed no bleeding at all on Eliquis. This AM around 1 AM she had RLQ pain that was non-radiating and sharp. She had soup (that her had also), yogurt and a granola bar for dinner. She has had no emesis or diarrhea. Has been moving bowels normally. She did not take anything for the pain. She has no other complaints at this time. Family History: Unchanged from Admission - unchanged as per recent HPI Social History: Unchanged from Admission - unchanged as per recent HPI Past Medical History: Unchanged from Admission - unchanged as per recent HPI Review of Systems - Measurements Intake and Output: Intake and Output Last 24 Hours 12/05/16 12/06/16 12/07/16 12/08/16 06:59 06:59 06:59 06:59 Weight 68.039 kg 68.039 kg - Review of Systems Constitutional Symptoms: Negative: Fever Dermatology: Positive: Normal HEENT: Positive: Normal Eyes: Positive: Normal Thyroid: Positive: Normal Pulmonary: Positive: Normal Cardiology: Positive: Normal Gastroenterology: Positive: Abdominal Pain, Nausea Endocrinology: Positive: Normal Neurology: Positive: Normal Psychiatry: Positive: Normal Objective Active Medications: Sodium Chloride (Ns 0.9% 1000 Ml*) 1,000 mls @ 100 mls/hr IV ED ONCE ONE Stop: 12/07/16 16:13 Last Admin: 12/07/16 06:30 Dose: 100 mls/hr Vital Signs 12/07/16 12/07/16 12/07/16 05:57 07:09 07:10 Temperature 98.5 F Pulse Rate 80 75 76 Respiratory 16 Rate Blood Pressure 119/60 130/62 (mmHg) O2 Sat by Pulse 98 100 100 Oximetry 12/07/16 12/07/16 12/07/16 07:30 08:00 09:00 Temperature Pulse Rate 78 84 87 Respiratory Rate Blood Pressure 120/54 119/55 (mmHg) O2 Sat by Pulse 100 99 98 Oximetry 12/07/16 10:00 Temperature Pulse Rate 84 Respiratory Rate Blood Pressure (mmHg) O2 Sat by Pulse 97 Oximetry Oxygen Devices in Use Now: None Appearance: Middle-aged, F, laying in bed in NAD Eyes: - - Scleral icterus Ears/Nose/Mouth/Throat: - - Dry MM Neck: NL Appearance and Movements; NL JVP Respiratory: Symmetrical Chest Expansion and Respiratory Effort, Clear to Auscultation Cardiovascular: NL Sounds; No Murmurs; No JVD, RRR Abdominal: - - Soft, non-distended, mild-mod TTP in RLQ, no rebound/guarding, BS + Lymphatic: No Cervical Adenopathy Extremities: - - B/L LE edema (improved from previous admission) Skin: - - Jaundiced skin Neurological: Alert and Oriented x 3 Result Diagrams: 12/07/16 05:55 12/07/16 05:55 Assessment/Plan - Billing RLQ pain in a 56 yo F with hx of cirrhosis and portal vein thrombosis. Pain is not in liver area. CT scan shows some mild thickening of the cecum and proximal ascending colon corresponding to pain. The patient has had no systemic symptoms and no diarrhea. May have some mild colitis. Tbili is up slightly from last admission, all other labs are improved (LFTs, Hb, Platelets). She has had no bleeding issues with the Eliquis. She has not received any pain medication and is hesitant to try anything. She declines any narcotic medications. I told her tylenol is OK to take in low doses and she can aim to keep below 2000 mg daily if it makes her feel safer. She states she wanted to know she "wasn't exploding" and feels that she can manage the pain at home. Does not want any pain medication here aside from low dose tylenol. Safe to discharge home. Has outpatient f/u with Dr. Avalos. Would not change any home medications.
--- NOTE | 2016-12-07 11:24 | ED ---
Dorian Medeiros Alok, scribed for Edgardo Flowers MD on 12/07/16 at 0830 . Progress - Progress Note Progress Note: 56 y/o female presents to the ED with right-sided abd pain since 0100. Upon arrival to ED, pt declined admittance to hospital last night in favor of waiting until the morning for Hematology/Toxicology to arrive. Her MHx includes HTN, blood clot in the liver Dx last week, and jaundice. Pt was last signed out by Dr. Bustos at 0700 this morning. CXR - IMPRESSION: PERSISTENT RIGHT BASILAR ATELECTASIS VERSUS CONSOLIDATION. RECOMMEND FOLLOW-UP UNTIL RESOLUTION TO EXCLUDE UNDERLYING PULMONARY PARENCHYMAL PATHOLOGY Abd/Pel CT - IMPRESSION: 1. NORMAL APPENDIX. 2. CIRRHOTIC LIVER WITH SPLENOMEGALY MULTIPLE LARGE RETROPERITONEAL VARICES, CONSISTENT WITH PORTAL HYPERTENSION. 3. BILATERAL PLEURAL EFFUSIONS. 4. CHOLELITHIASIS. 5. ASCITES. 6. THERE IS MUCOSAL THICKENING OF THE PROXIMAL ASCENDING COLON. CONSIDER CORRELATION WITH DIRECT VISUALIZATION.. DR BACA CONSULTED AND SAW PATIENT IN ED. DISCHARGE HOME STABLE; PATENT WILL RETURN IF WORSE OR QUESTIONS OR CONCERNS. - EKG/XRAY/CT EKG: NSR - 79 bpm Comments: Time: 0704. No ST elevation. No Ectopy XRAY: chest Xray Comments: IMPRESSSION (See Progress note) CT: Abd/Pel CT - IMPRESSION (See Progress note) Re-Evaluation - Re-Evaluation First Eval Re-Evaluation Time: 10:11 Course/Dx - Course Course Of Treatment: Nicole Betts is a 56 yo female presenting to [facility] with 8 /10 abd and upper right flank pain since 0100 this morning. She is signed out to Dr. Flowers [place] [address] A/P, EKG, and lab work. - Diagnoses Provider Diagnoses: Jaundice, Abdominal pain, Liver failure - Provider Notifications Discussed Care Of Patient With: Dr Baca (Hospitalist) @ 0845 - Discussed pt request to return home following normal CT The documentation as recorded by the Dorian kwong Alok accurately reflects the service I personally performed and the decisions made by , Edgardo Flowers MD.
[2016-12-07 12:30] VITALS: BP 131/66
== END | disposition home or self-care (01) ==
LOC: ED 05:42
DX: R17 Unspecified jaundice (principal); K72.90 Hepatic failure, unspecified without coma; J90 Pleural effusion, not elsewhere classified; J98.11 Atelectasis; R10.9 Unspecified abdominal pain; R11.0 Nausea; R19.7 Diarrhea, unspecified
CPT/HCPCS: 36415; 71010; 74177; 80053; 81003; 82140; 83605; 83690; 83735; 83880; 84484; 85025; 85610; 86140; 87040; 93005; 96374; 99283; A9270-GY; Q9967

== ENCOUNTER 2017-09-09 12:09 | Emergency (ER) | payer BC ==
--- NOTE | 2017-09-09 14:05 | RAD ---
Indication: Headaches after fall, patient on anticoagulants. CT of the brain was performed without IV contrast. Ventricular structures are midline. No midline shift is noted. The extraction spaces are unremarkable. No evidence of mass or hemorrhage. No other high or low density lesions are identified. Mastoid air cells and paranasal sinuses are grossly unremarkable. IMPRESSION: No intracranial mass or hemorrhage is noted
--- NOTE | 2017-09-09 14:08 | RAD ---
Patient: Neck pain after fall, patient on blood thinners. CT of the cervical spine was obtained in the axial. Sagittal and coronal reconstructed images were obtained. The skull base demonstrates mastoid air cells to be well aerated. No fractures identified. The C1 ring is intact. The vertebral bodies appear normal in height. Disc space narrowing at C3-C4, C4-C5, C5-C6 and C6-C7 is noted with dorsal and ventral osteophyte formation. Spinal canal appears to be intact. The intervertebral foramen appear patent. IMPRESSION: No fracture of the cervical spine is noted. Degenerative disc disease at C3-C4, C4-C5, C5-C6 and C6-C7.
--- NOTE | 2017-09-09 14:22 | RAD ---
Indication: Facial injury. Right mandible pain and epistaxis. CT of the facial bones was obtained in the axial plane. Sagittal and coronal reconstructed images were obtained. The thyroid cartilage is grossly unremarkable. There is some irregularity of the thyroid cartilage. The right mandibular condyle demonstrates comminuted fracture with angulation. The mandibular condyle appears to be displaced anteriorly and medially. The body and ramus of the right mandible is otherwise unremarkable. The left temporomandibular joint is unremarkable. The remainder of the mandible shows no fracture. The maxilla and hard palate and pterygoid plates demonstrate no fracture. The skull base demonstrates no fracture. Minimal mucosal thickening of the maxillary sinuses is noted. Nasal arch is intact without fracture. The frontal sinuses and orbits are grossly unremarkable. IMPRESSION: There is a comminuted fracture of the right mandibular condyle with anteriorly displaced and displacement of the mandibular condyle. No other fractures are noted.
--- NOTE | 2017-09-09 14:54 | RAD ---
Indication: Right hand injury. 4 views of the right hand demonstrates no fracture. No other bone or joint abnormality is noted. IMPRESSION: Unremarkable right hand.
--- NOTE | 2017-09-09 14:56 | RAD ---
Indication: RIGHT knee pain post fall. Anticoagulated. Comparison: None. Technique: RIGHT knee: AP, tunnel, crosstable lateral, sunrise views. REPORT AND IMPRESSION: Negative for joint effusion, fracture, or malalignment. Moderately severe anterior soft tissue swelling at both level of the patella. Resulting partial obscuration of the normally visualized fat tendon interface at the anterior margin of the quadriceps tendon. Negative for laxity in contour of the quadriceps or patellar tendons to suggest a quadriceps tendon tear. Correlate with clinical assessment.
[2017-09-09 17:56] LABS: Hematocrit 36 % (35-47); Hemoglobin 12.4 g/dl (12.0-16.0); Mean Corpuscular HGB Conc 35 g/dl (31-36); Mean Corpuscular Hemoglobin 35 pg (27-31); Mean Corpuscular Volume 100 fL (80-97); Mean Platelet Volume 9 um3 (7.4-10.4); Red Blood Count 3.58 10^6/ul (4.0-5.4); Red Cell Distribution Width 15 % (10.5-15); White Blood Count 6.4 10^3/ul (3.5-10.8)
[2017-09-09 17:57] LABS: Comments Flag Yes
[2017-09-09 18:11] LABS: Albumin 3.1 g/dL (3.2-5.2); C Reactive Protein 4.52 mg/L (< 5.00); EGFR African American 102.1 (>60); EGFR Non-African American 79.4 (>60); Globulin 2.7 g/dL (2-4); Magnesium 1.2 mg/dL (1.9-2.7); Potassium 3.6 mmol/L (3.5-5.0); Total Bilirubin 6.2 mg/dL (0.2-1.0); Total Protein 5.8 g/dL (6.4-8.9)
[2017-09-09 18:47] VITALS: BP 131/70
[2017-09-09 18:59] LABS: Urine Bacteria Absent (Absent); Urine Bilirubin Negative (Negative); Urine Glucose Negative (Negative); Urine Nitrite Negative (Negative)
--- NOTE | 2017-09-09 22:37 | ED ---
Jj Medeiros Tiffany, scribed for Aruna Ontiveros MD on 09/09/17 at 1321 . Head Injury - HPI Summary HPI Summary: This patient is a 57 year old F [facility] accompanied by with a chief complaint of right jaw pain s/p slipping and falling on ice just prior to presentation in the ED. The patient was holding a box and hit her face on the box. The patient rates the pain 6/10 in severity. Symptoms aggravated by nothing. Symptoms alleviated by nothing. Patient reports epistaxis after the fall, neck pain, abrasion to right hand, abrasion to the nose, laceration to the chin, skin tear and laceration above lip. Patient reports not being able to bite down. Patient denies loss of consciousness. The patient states that she did not have a seizure. The patient is taking a blood thinner, Eliquis since 11/2016 for portal vein thrombosis. Pt states pain is tolerable at this time and declines pain medication. - History Of Current Complaint Chief Complaint: EDHeadInjury Stated Complaint: FALL Time Seen by Provider: 09/09/17 13:05 Hx Obtained From: Patient, Family/Society Editor - Jessica, is with pt, Medical Records Mechanism Of Injury: Other - Slip and fall on ice, NOT from seizure Onset/Duration: Started Hours Ago, Traumatic, Still Present Onset of Pain: Post Accident Severity Currently: Moderate Severity Initially: Moderate Pain Intensity: 6 Pain Scale Used: 0-10 Numeric Location of Head Injury: Frontal, Other: - facial and right mandible Location: Discrete At: - Right jaw Character: Sharp, Pressure Aggravating Factor(s): Other: - Nothing Alleviating Factor(s): Other: - Nothing Associated Signs And Symptoms: Epistaxis, Dental Malocclusion, Neck Pain, Swelling, Other: - Epistaxis after the fall, neck pain, abrasion to right hand, abrasion to the nose, laceration to the chin, skin tear and laceration above lip , unable to bite down; NEGATIVE: loss of consciousness. Anticoagulant Therapy: Other: - Eliquis - Risk Factors SDH Risk Factor: Anticoagulent Use Risk Factors For Cervical Spine Injury: Painful Distracting Injury - Allergies/Home Medications Allergies/Adverse Reactions: Allergies Allergy/AdvReac Type Severity Reaction Status Date / Time Bee Venom Allergy Fever Verified 11/27/16 12:00 Tree Nuts Allergy Hives Verified 12/02/16 10:43 environmental/ fragrances Allergy Dizziness Uncoded 11/27/16 11:59 seafood Allergy Hives Uncoded 11/27/16 12:00 PMH/Surg Hx/FS Hx/Imm Hx Previously Healthy: No Cardiovascular History: Denies: Hx Hypertension GI History: Reports: Hx Jaundice, Other GI Disorders - portal vein thrombosis, on eliquis since 11/2016 Neurological History: Reports: Hx Seizures Psychiatric History: Reports: Hx Substance Abuse - Alcoholism - Surgical History Surgery Procedure, Year, and Place: EYE SURGERY Infectious Disease History: No Infectious Disease History: Denies: Traveled Outside the [place] in Last 30 Days - Family History Known Family History: Positive: Unknown - Pt is adopted - Social History Hx Substance Use: No Substance Use Type: Reports: None Hx Tobacco Use: No Smoking Status (MU): Never Smoked Tobacco Review of Systems Positive: Other - Unable to bite down Positive: Epistaxis Cardiovascular: Negative Respiratory: Negative Gastrointestinal: Negative Positive: Other - Right jaw pain Positive: Other - abrasion to right hand, abrasion to the nose, abrasion to the chin, skin tear and laceration above lip Neurological: Other - NEGATIVE: loss of consciousness Psychological: Normal All Other Systems Reviewed And Are Negative: Yes Physical Exam Triage Information Reviewed: Yes Vital Signs On Initial Exam: Initial Vitals Temp Pulse Resp BP Pulse Ox 97.5 F 102 17 168/95 97 09/09/17 12:18 09/09/17 12:18 09/09/17 12:18 09/09/17 12:18 09/09/17 12:18 Vital Signs Reviewed: Yes Appearance: Positive: No Pain Distress, Well-Nourished, Ill-Appearing Skin: Positive: Warm, Skin Color Reflects Adequate Perfusion, Jaundiced, Other - Hematoma on left forehead, laceration on lip and chin, purple ecchymosis on dorsum of right hand over fifth metacarpal, hematoma and abrasion on her right patella, 2 cm diameter silver-scale lesion on right lateral proximal fibula, trophic changes on right lower extremity, abrasion on anterior left tibia Head/Face: Positive: Other - swelling right mandible, multiple abrasions to face Eyes: Positive: EOMI. Negative: Conjunctiva Clear - Sclera is erythematous in right eye ENT: Positive: TMs normal, Other - Abraded mucosa in bilat nostrils, no definite bleeding site, no nasal defomity, abrasions left upper lip, trismus, can open mouth one finger Dental: Positive: Other - Fractured teeth on left central incisor and first incisor, nerve root not exposed Neck: Positive: Supple, Nontender, No Lymphadenopathy Respiratory/Lung Sounds: Positive: Clear to Auscultation, Breath Sounds Present - Normal, Other - No respiratory distress, no chest wall tenderness Cardiovascular: Positive: Normal, RRR, Pulses are Symmetrical in both Upper and Lower Extremities. Negative: Murmur Abdomen Description: Positive: Nontender, No Organomegaly, Soft. Negative: Bruit, CVA Tenderness (R), CVA Tenderness (L), Distended, Guarding, Hernia @, Hepatomegaly, McBurney's Point Tenderness, Peritoneal Signs, Pulsatile Mass, Splenomegaly Bowel Sounds: Positive: Present Musculoskeletal: Positive: Strength/ROM Intact, Other - able to lift right leg off stretcher from hip, full flexion and extension; hematoma right knee Neurological: Positive: Sensory/Motor Intact, Alert, Oriented to Person Place, Time, Facial Symmetry - except for swelling right mandible, Speech Normal Psychiatric: Positive: Normal - Sarabjit Coma Scale Best Eye Response: 4 - Spontaneous Best Motor Response: 6 - Obeys Commands Best Verbal Response: 5 - Oriented Coma Scale Total: 15 Procedures - Laceration/Wound Repair 1 Location: Other - Chin Description: Linear Anesthesia: Local, 1.0% Length, Depth and Shape: 3 cm by 2 mm by 1 mm Betadine Prep?: Yes Irrigated w/ Saline (ccs): 100 Laceration/Wound Explored: clean, no foreign body removed Closure: Single Layer Suture Type: Nylon - 5-0 Number of Sutures: 5 Layer Closure?: No Sterile Dressing Applied?: Yes Diagnostics - Vital Signs Vital Signs Temp Pulse Resp BP Pulse Ox 09/09/17 12:20 168/95 09/09/17 12:18 97.5 F 102 17 168/95 97 - Laboratory Lab Results: Lab Results 09/09/17 09/09/17 09/09/17 Range/Units 17:45 17:45 17:45 WBC 6.4 (3.5-10.8) 10^3/ul RBC 3.58 L (4.0-5.4) 10^6/ul Hgb 12.4 (12.0-16.0) g/dl Hct 36 (35-47) % MCV 100 H (80-97) fL MCH 35 H (27-31) pg MCHC 35 (31-36) g/dl RDW 15 (10.5-15) % Plt Count 69 L (150-450) 10^3/ul MPV 9 (7.4-10.4) um3 Neut % (Auto) 75.6 (38-83) % Lymph % (Auto) 16.4 L (25-47) % [place] % (Auto) 7.0 (1-9) % Eos % (Auto) 0.6 (0-6) % Baso % (Auto) 0.4 (0-2) % Absolute Neuts (auto) 4.8 (1.5-7.7) 10^3/ul Absolute Lymphs (auto) 1.0 (1.0-4.8) 10^3/ul Absolute Monos (auto) 0.4 (0-0.8) 10^3/ul Absolute Eos (auto) 0 (0-0.6) 10^3/ul Absolute Basos (auto) 0 (0-0.2) 10^3/ul Absolute Nucleated RBC 0.01 10^3/ul Nucleated RBC % 0.1 INR (Anticoag Therapy) 1.85 H (0.77-1.02) Sodium 140 (133-145) mmol/L Potassium 3.6 (3.5-5.0) mmol/L Chloride 104 (101-111) mmol/L Carbon Dioxide 29 (22-32) mmol/L Anion Gap 7 (2-11) mmol/L BUN 9 (6-24) mg/dL Creatinine 0.75 (0.51-0.95) mg/dL Est GFR ( Amer) 102.1 (>60) Est GFR (Non-Af Amer) 79.4 (>60) BUN/Creatinine Ratio 12.0 (8-20) Glucose 105 H (70-100) mg/dL Lactic Acid (0.5-2.0) mmol/L Calcium 9.0 (8.6-10.3) mg/dL Magnesium 1.2 L (1.9-2.7) mg/dL Total Bilirubin 6.20 H (0.2-1.0) mg/dL AST 42 H (13-39) U/L ALT 20 (7-52) U/L Alkaline Phosphatase 164 H (34-104) U/L C-Reactive Protein 4.52 (< 5.00) mg/L Total Protein 5.8 L (6.4-8.9) g/dL Albumin 3.1 L (3.2-5.2) g/dL Globulin 2.7 (2-4) g/dL Albumin/Globulin Ratio 1.1 (1-3) Urine Color Urine Appearance Urine pH (5-9) Ur Specific [place] (1.010-1.030) Urine Protein (Negative) Urine Ketones (Negative) Urine Blood (Negative) Urine Nitrate (Negative) Urine Bilirubin (Negative) Urine Urobilinogen (Negative) Ur Leukocyte Esterase (Negative) Urine WBC (Auto) (Absent) Urine RBC (Auto) (Absent) Ur Squamous Epith Cells (Absent) Urine Bacteria (Absent) Urine Glucose (Negative) 09/09/17 09/09/17 Range/Units 17:45 18:45 WBC (3.5-10.8) 10^3/ul RBC (4.0-5.4) 10^6/ul Hgb (12.0-16.0) g/dl Hct (35-47) % MCV (80-97) fL MCH (27-31) pg MCHC (31-36) g/dl RDW (10.5-15) % Plt Count (150-450) 10^3/ul MPV (7.4-10.4) um3 Neut % (Auto) (38-83) % Lymph % (Auto) (25-47) % [place] % (Auto) (1-9) % Eos % (Auto) (0-6) % Baso % (Auto) (0-2) % Absolute Neuts (auto) (1.5-7.7) 10^3/ul Absolute Lymphs (auto) (1.0-4.8) 10^3/ul Absolute Monos (auto) (0-0.8) 10^3/ul Absolute Eos (auto) (0-0.6) 10^3/ul Absolute Basos (auto) (0-0.2) 10^3/ul Absolute Nucleated RBC 10^3/ul Nucleated RBC % INR (Anticoag Therapy) (0.77-1.02) Sodium (133-145) mmol/L Potassium (3.5-5.0) mmol/L Chloride (101-111) mmol/L Carbon Dioxide (22-32) mmol/L Anion Gap (2-11) mmol/L BUN (6-24) mg/dL Creatinine (0.51-0.95) mg/dL Est GFR ( Amer) (>60) Est GFR (Non-Af Amer) (>60) BUN/Creatinine Ratio (8-20) Glucose (70-100) mg/dL Lactic Acid 1.4 (0.5-2.0) mmol/L Calcium (8.6-10.3) mg/dL Magnesium (1.9-2.7) mg/dL Total Bilirubin (0.2-1.0) mg/dL AST (13-39) U/L ALT (7-52) U/L Alkaline Phosphatase (34-104) U/L C-Reactive Protein (< 5.00) mg/L Total Protein (6.4-8.9) g/dL Albumin (3.2-5.2) g/dL Globulin (2-4) g/dL Albumin/Globulin Ratio (1-3) Urine Color Yellow Urine Appearance Clear Urine pH 7.0 (5-9) Ur Specific [place] 1.005 L (1.010-1.030) Urine Protein Negative (Negative) Urine Ketones Negative (Negative) Urine Blood 3+ H (Negative) Urine Nitrate Negative (Negative) Urine Bilirubin Negative (Negative) Urine Urobilinogen Negative (Negative) Ur Leukocyte Esterase Negative (Negative) Urine WBC (Auto) Absent (Absent) Urine RBC (Auto) Trace(0-2/hpf) (Absent) Ur Squamous Epith Cells Present H (Absent) Urine Bacteria Absent (Absent) Urine Glucose Negative (Negative) Result Diagrams: 09/09/17 17:45 09/09/17 17:45 Lab Statement: Any lab studies that have been ordered have been reviewed, and results considered in the medical decision making process. - Radiology R Knee Radiology Interpretation Completed By: Radiologist - Negative for joint effusion , fracture, or malalignment. Moderately severe anterior soft tissue swelling at both level of the patella. Resulting partial obscuration of the normally visualized fat tendon interface at the anterior margin of the quadriceps tendon. Negative for laxity in contour of the quadriceps or patellar tendons to suggest a quadriceps tendon tear. Correlate with clinical assessment. ED physician has reviewed this radiology report. R Hand Radiology Interpretation Completed By: Radiologist - Unremarkable right hand. ED physician has reviewed this radiology report. - CT Brain CT Interpretation Completed By: Radiologist - No intracranial mass or hemorrhage is noted. ED physician has reviewed this radiology report. C-Spine CT Interpretation Completed By: Radiologist - No fracture of the cervical spine is noted. Degenerative disc disease at C3-C4, C4-C5, C5-C6 and C6-C7. ED physician has reviewed this radiology report. Maxillofacial CT Interpretation Completed By: Radiologist - EKG 17:39 Cardiac Rate: NL EKG Rhythm: Sinus Rhythm - [address] Segment: Non-Specific EKG Interpretation: Normal AV/IV conduction times. Negative left axis (-2). EKG Comparison: No Significant Change - Compared to 12/07/16 Re-Evaluation - Re-Evaluation First Eval Re-Evaluation Time: 15:46 Change: Improved Comment: Patient's pain and bleeding controlled. She was informed of CT results. Second Eval Re-Evaluation Time: 15:54 Change: Unchanged Comment: The patient's pain is controlled. She still declines pain medication. She was advised to follow up with orthopedics and the [facility] for her right jaw. Third Eval Re-Evaluation Time: 18:39 Change: Unchanged Comment: The patient still has slight oozing from her left upper lip, but overall bleeding is controlled. Head Injury Course/Dx Course Of Treatment: CT Brain reveals, per radiologist, No intracranial mass or hemorrhage is noted. CT C-Spine reveals, per radiologist, No fracture of the cervical spine is noted. Degenerative disc disease at C3-C4, C4-C5, C5-C6 and C6 -C7. CT Maxillofacial reveals, per radiologist, There is a comminuted fracture of the right mandibular condyle with anteriorly displaced and displacement of the mandibular condyle. No other fractures are noted. Knee X-Ray reveals, per radiologist, Negative for joint effusion, fracture, or malalignment. Moderately severe anterior soft tissue swelling at both level of the patella. Resulting partial obscuration of the normally visualized fat tendon interface at the anterior margin of the quadriceps tendon. Negative for laxity in contour of the quadriceps or patellar tendons to suggest a quadriceps tendon tear. Correlate with clinical assessment. Hand X-Ray reveals, per radiologist, Unremarkable right hand. We discussed patient care with Dr. Johnson (oral surgery) who advised that the patient be transferred to the closest facility with oral surgery available for open joint surgery, which would be the [facility]. At 17:00, Dr. Swapnil Rivera (plastic surgery, covering maxillofacial) advised that surgery can be scheduled as outpatient, will see her for appointment on Tuesday09/13/17, and recommends that patient can be discharged. At 17:, Dr. Green (orthopedics) said that he will see the patient. The patient was given sutures on her chin. At 18:28, I updated Dr. Rivera on the patient's situation , including T bili 6.2. Patient will be discharged with prescription for Augmentin and follow up from PCP and Dr. Rivera (plastic surgery at [facility]). The patient is agreeable with this plan. Assessment/Plan: Allergies noted. High blood pressure noted. Pt medications reviewed this visit. - Diagnoses Provider Diagnoses: Fracture of right condylar process of mandible, multiple abrasions and contusions, chin laceration with sutures, Portal vein thrombosis, Traumatic hematoma of right knee, Jaundice, Thrombocytopenia - Physician Notifications Discussed Care Of Patient With: Daniel Johnson Time Discussed With Above Provider: 16:39 Instructed by Provider To: Other - Dr. Johnson (oral surgery) advised that the patient be transferred to the closest facility with oral surgery available for open joint surgery, which would be the [facility]. At 16:48, [place] transfer center said that they will call back. At 17:00, Dr. Rivera (plastic surgery) advised that surgery can be scheduled as outpatient, will see her for appointment on Tuesday09/13/17, and recommends that patient can be discharged. At 17:, Dr. Green (orthopedics) said that he will see patient. At 18:28, I updated Dr. Rivera on the patient's situation. Reason For Transfer: Specialty or service not available [place] [facility] - Critical Care Time Critical Care Time: 30-74 min - 30 mins Discharge - Discharge Plan Condition: Stable Disposition: HOME Prescriptions: Amoxicillin/Clavulanate TAB* [Augmentin TAB 875*] 875 mg PO BID #10 tab Referrals: Fidel Green MD [Medical Doctor] - 4 Days Jose Luis Waller MD [Primary Care Provider] - Additional Instructions: Dr. Ontiveros spoke with Dr. Swapnil Rivera, the plastic surgeon at [facility], covering for maxillofacial trauma today. He stated that he would call you over the weekend after he had reviewed our CT images. He is expecting to schedule an appointment for you in his office for Sep 13. If you do not hear from anyone over the weekend, please call [phone] to schedule that appointment for Sep 13. You may continue to take your Eliquis as directed. Dr. Rivera also suggested that you should be on 5 days of Augmentin twice a day to help prevent infection of your facial lacerations. There are 5 5-0 nylon sutures in your chin laceration that should come out in 4- [address] Rivera may be willing to remove those for you. Otherwise, you may go to [facility] or your primary care doctor to have them removed. You were also seen in the ER by Dr. Samuels, the orthopedist. He stated that you may bear weight, that you do not have a fracture in your knee, or a quadriceps tendon tear. He suggests that you should wear an jaime bandage 24-7 for the next 3-5 days at least, wrapped very loosely, to provide a little compression, to help decrease further bleeding into the hematoma on your knee. Return to the ER if you have new or worsening symptoms. We have given you a copy of your xrays and CT's and your EKG that you may show your doctors. The documentation as recorded by the Jj kwong Tiffany accurately reflects the service I personally performed and the decisions made by , Aruna Ontiveros MD.
--- NOTE | 2017-09-09 23:44 | CONS ---
ORTHOPEDIC CONSULT: DATE OF CONSULT: CONSULTING SERVICE: Orthopedics. REQUESTING SERVICE: Emergency room. REASON FOR CONSULT: Right knee pain. HISTORY OF PRESENT ILLNESS: Nicole is a 57-year-old woman, who sustained a slip and fall in the ice this afternoon. She has a substantial injury to her mandible and is actually going to be having radha laura in [place] next week for this. The ER consulted me because she has right knee pain and hemato ma formation. She described the pain as over the anterior knee. She is on Eliquis at baseline. PHYSICAL EXAM: Vital signs are heart rate 95, respiratory rate 16, O2 sat 97% on room air, blood pre ssure 121/65. Examination of the right lower extremity reveals the skin is intact throughout. She d oes have an obvious large hematoma over the anterior aspect of the suprapatellar knee. She does have some tenderness in this area as well. She is able to easily perform a straight leg raise and her pa tellar tendon is palpably intact. She has no tenderness along the medial and lateral joint line and the knee feels stable on exam. Her active range of motion is from 0 to 90 and is only limited there by the tenseness on the anterior knee with flexion. Distally, her foot is warm and well perfused with a good DP pulse and sensation is intact to light touch. DIAGNOSTIC STUDIES: Imaging: X-rays were independently interpreted by me, they do not show any frac tures. ASSESSMENT AND PLAN: Nicole looks to have sustained an anterior right knee hematoma due to being on Eliquis and sustaining a mechanical fall. Her extensor mechanism is clearly intact on exam today. She has no tenderness around the bones of the knee and x-rays were reassuring as well. Therefore, I think this is likely just a soft tissue hematoma and there is no role for surgery at this time. We d id discuss the use of crutches and resting the knee as well as a gentle application of an Giovanni wrap to give some compression, but not to overly compress the knee. I will plan on seeing her next week in the office, although she is tied up with having the surgery in [place], she could follow up the nex t week as well with one of my colleagues as I will be out of town. All of their questions were answe red today. [id number]/[facility] #: [id number]
== END 2017-09-09 18:48 | disposition home or self-care (01) ==
LOC: ED 12:09
DX: R04.0 Epistaxis (principal); S60.512A Abrasion of left hand, initial encounter; W01.0XXA Fall on same level from slipping, tripping and stumbling without subsequent striking against object, initial encounter; Y93.9 Activity, unspecified; Y92.9 Unspecified place or not applicable
CPT/HCPCS: 36415; 70450; 70486; 72125; 80053; 81003; 81015; 83605; 83735; 85025; 85610; 86140; 93005; 99283

== ENCOUNTER 2018-05-24 17:17 | Inpatient (IN) | payer BC ==
--- OUTSIDE RECORDS SUMMARY | 2018-05-24 17:35 | XMS REPORT ---
:1960 External Reference #:[id number] Author Organization [facility] Address [address] [place] [address] Phone [phone] Care Team Providers Name Role Phone Jose Luis Waller M.D. Primary Care Physician Unavailable Payers Type Date Identification Numbers Payment Provider Subscriber Commercial Policy Number: [id number] [facility] Nicole Betts PayID: [id number] [address] [address] [place] [address] Problems Date Description Provider Status Onset: Environmental allergy Active Onset: 09/08/2015 Anxiety Jim Dahl M.D. Active Note: Around Doctors Onset: 09/08/2015 Nuclear senile cataract Jim Dahl M.D. Active Onset: 09/08/2015 Refractive amblyopia Jim Dahl M.D. Active Onset: 05/02/2018 Vitelliform dystrophy Jim Dahl M.D. 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 daily Epipen 2-Ernesto Active Solution 0.3mg/0.3M Unknown 000 Auto-Injec L t Multi Vitamin 0 Active Tablets Unknown Daily 000 Spironolactone 0 Active Tablets 25mg Unknown 000 Eliquis 0 Active Tablets 2.5mg Unknown 000 Results Description No Information Procedures Date CPT Code Description Status 09/08/2015 43499 New Patient Comprehensive Exam Completed Plan of Care 05/02/2018 - Jim Dahl M.D.H35.54 Dystrophies primarily w the retinal pigment epitheliumComments:Smoking can increase the risk of developing or worsening any eye related disease, as well as affect your overall health. If you are a smoker, we strongly recommend that you quit.If you are not a smoker, we strongly recommend that you do not start.H53.021 Refractive amblyopia, right eyeH25.13 Age-related nuclear cataract, bilateralComments:You have been diagnosed with cataracts. If you are happy with your vision as it is now, then we willsee you at your next scheduled appointment. If you feel like your vision is getting worse before your scheduled appointment, please call Penny or Ale at [phone].
[2018-05-24] MEDS ORDERED: Ketorolac INJ* 30 MG/ML 1 ML VIAL IV PUSH ONE (19:41)
[2018-05-24 19:44] LABS: ABS Basophils 0.1 10^3/ul (0-0.2); ABS Eosinophils 0 10^3/ul (0-0.6); ABS Lymphocytes 1.6 10^3/ul (1.0-4.8); ABS Monocytes 1.3 10^3/ul (0-0.8); ABS Neutrophils 11.5 10^3/ul (1.5-7.7); ABS Nucleated RBC 0 10^3/ul; Eosinophil % 0.1 % (0-6); Hematocrit 32 % (35-47); Hemoglobin 11.3 g/dl (12.0-16.0); Lymphocyte % 11.2 % (25-47); Mean Corpuscular HGB Conc 35 g/dl (31-36); Mean Corpuscular Hemoglobin 35 pg (27-31); Mean Corpuscular Volume 102 fL (80-97); Mean Platelet Volume 8.3 um3 (7.4-10.4); Nucleated Red Blood Cells % 0; Platelet Count 121 10^3/ul (150-450); Red Blood Count 3.18 10^6/ul (4.00-5.40); Red Cell Distribution Width 15 % (10.5-15); White Blood Count 14.5 10^3/ul (3.5-10.8)
[2018-05-24 19:55] LABS: EGFR Non-African American 65.1 (>60)
--- NOTE | 2018-05-24 20:21 | ED ---
Abdominal Pain/Female - HPI Summary HPI Summary: Patient is a 67 y/o F w/ c/o RUQ and lower abdominal pain onsetting a week ago. She also claims to have a fever. On triage, pain is rated 7/10 and nothing is noted to aggravate/alleviate Sx. Patient reports Hx of liver cirrhosis from Tylenol overdose, about 1.5 years ago. She reports few and difficult bowel movements recently and notes no abdominal problems previously. Patient states she took Tylenol today at 1400, 300 mg. She denies smoking, drinking, and taking blood pressure medications. Patient states she does not have a FMHx. She has a contrast allergy. Home medications and other allergies reviewed. - History of Current Complaint Chief Complaint: EDAbdPain Stated Complaint: ABD PAIN/FEVER Time Seen by Provider: 05/24/18 19:25 Hx Obtained From: Patient Onset/Duration: Lasting Weeks - onset a week ago, Still Present Timing: Constant Severity Currently: Severe - 7/10 Pain Intensity: 7 Pain Scale Used: 0-10 Numeric - 7/10 Location: Other - RUQ and lower abdomen Aggravating Factor(s): Nothing Alleviating Factor(s): Nothing Associated Signs and Symptoms: Positive: Fever, Constipation - difficult and few bowel movements reported Allergies/Adverse Reactions: Allergies Allergy/AdvReac Type Severity Reaction Status Date / Time Iodinated Contrast- Oral and Allergy Unknown Verified 05/24/18 19:35 IV Dye Reaction Details Tree Nuts Allergy Hives Verified 12/01/17 15:19 BEE VENOM Allergy Hives/Diff. Uncoded 12/01/17 15:19 Breathing/I tching environmental/ fragrances Allergy Difficulty Uncoded 12/01/17 15:19 Breathing seafood Allergy Anaphylatic Uncoded 12/01/17 15:19 Shock Home Medications: Home Medications EPINEPHrine [Epipen] 1 syr IM ONCE PRN 05/24/18 [History Confirmed 05/24/18] PMH/Surg Hx/FS Hx/Imm Hx Endocrine/Hematology History: Denies: Hx Diabetes Cardiovascular History: Denies: Hx Hypertension, Hx Pacemaker/ICD GI History: Reports: Hx Jaundice, Other GI Disorders - portal vein thrombosis, on eliquis since 11/2016 History: Denies: Hx Renal Disease Sensory History: Denies: Hx Hearing Aid Neurological History: Reports: Hx Seizures Psychiatric History: Reports: Hx Substance Abuse - Alcoholism Denies: Hx Panic Disorder - Surgical History Surgery Procedure, Year, and Place: EYE SURGERY - MUSCLES;. PLATE ON JAW FROM [facility] SEP 2017; Infectious Disease History: No Infectious Disease History: Denies: Traveled Outside the [place] in Last 30 Days - Family History Known Family History: Positive: Unknown - Pt is adopted - Social History Alcohol Use: None Hx Substance Use: No Substance Use Type: Reports: None Hx Tobacco Use: No Smoking Status (MU): Never Smoked Tobacco Review of Systems Positive: Fever Positive: Abdominal Pain - RUQ and lower abdomen , Other - POSITIVE: constipation All Other Systems Reviewed And Are Negative: Yes Physical Exam - Summary Physical Exam Summary: Appearance: Well appearing, no pain distress Skin: warm, dry, reflects adequate perfusion; darkish skin color Head/face: normal Eyes: EOMI, MELONIE; isclera icterus noted. ENT: normal Neck: supple, non-tender Respiratory: CTA, breath sounds present Cardiovascular: systolic murmur is noted, no other abnormal findings to report, pulses symmetrical; Abdomen: mild distention of the abdomen, generalized abdominal tenderness and fullness Bowel Sounds: present Musculoskeletal: normal, strength/ROM intact Neuro: normal, sensory motor intact, A&Ox3 Triage Information Reviewed: Yes Vital Signs On Initial Exam: Initial Vitals Temp Pulse Resp BP Pulse Ox 97.9 F 110 16 105/57 98 05/24/18 17:19 05/24/18 17:19 05/24/18 17:19 05/24/18 17:19 05/24/18 17:19 Vital Signs Reviewed: Yes Diagnostics - Vital Signs Vital Signs Temp Pulse Resp BP Pulse Ox 05/24/18 19:24 92 16 115/60 99 05/24/18 17:19 97.9 F 110 16 105/57 98 - Laboratory Lab Results: Lab Results 05/24/18 05/24/18 05/24/18 Range/Units 19:28 19:28 19:28 WBC 14.5 H (3.5-10.8) 10^3/ul RBC 3.18 L (4.00-5.40) 10^6/ul Hgb 11.3 L (12.0-16.0) g/dl Hct 32 L (35-47) % MCV 102 H (80-97) fL MCH 35 H (27-31) pg MCHC 35 (31-36) g/dl RDW 15 (10.5-15) % Plt Count 121 L (150-450) 10^3/ul MPV 8.3 (7.4-10.4) um3 Neut % (Auto) 79.2 (38-83) % Lymph % (Auto) 11.2 L (25-47) % Edgar % (Auto) 8.9 H (0-7) % Eos % (Auto) 0.1 (0-6) % Baso % (Auto) 0.6 (0-2) % Absolute Neuts (auto) 11.5 H (1.5-7.7) 10^3/ul Absolute Lymphs (auto) 1.6 (1.0-4.8) 10^3/ul Absolute Monos (auto) 1.3 H (0-0.8) 10^3/ul Absolute Eos (auto) 0 (0-0.6) 10^3/ul Absolute Basos (auto) 0.1 (0-0.2) 10^3/ul Absolute Nucleated RBC 0 10^3/ul Nucleated RBC % 0 Sodium 120 L (135-145) mmol/L Potassium 4.6 (3.5-5.0) mmol/L Chloride 84 L (101-111) mmol/L Carbon Dioxide 27 (22-32) mmol/L Anion Gap 9 (2-11) mmol/L BUN 15 (6-24) mg/dL Creatinine 0.89 (0.51-0.95) mg/dL Est GFR ( Amer) 78.8 (>60) Est GFR (Non-Af Amer) 65.1 (>60) BUN/Creatinine Ratio 16.9 (8-20) Glucose 488 H (70-100) mg/dL Lactic Acid 3.3 H* (0.5-2.0) mmol/L Calcium 10.5 H (8.6-10.3) mg/dL Total Bilirubin 8.20 H (0.2-1.0) mg/dL AST 20 (13-39) U/L ALT 11 (7-52) U/L Alkaline Phosphatase 105 H (34-104) U/L C-Reactive Protein 109.31 H (<8.01) mg/L Total Protein 6.1 L (6.4-8.9) g/dL Albumin 2.6 L (3.2-5.2) g/dL Globulin 3.5 (2-4) g/dL Albumin/Globulin Ratio 0.7 L (1-3) Lipase < 10 L (11.0-82.0) U/L Result Diagrams: 05/24/18 19:28 05/25/18 02:44 Lab Statement: Any lab studies that have been ordered have been reviewed, and results considered in the medical decision making process. - CT CT abd/pel CT Interpretation: Positive (See Comments) CT Interpretation Completed By: Radiologist - cholelithiasis, complications of cirrhosis including splenomegaly and diffuse ascites. No other acute intra- abdominal findings. This report was reviewed by ED physician. - EKG 192 Cardiac Rate: NL - rate of 90 bpm EKG Rhythm: Sinus Rhythm ST Segment: Normal EKG Interpretation: normal axis, normal intervals Re-Evaluation - Re-Evaluation First Eval Re-Evaluation Time: 22:03 Comment: Discussed results of labs and tests with patient. Patient will be admitted to [facility] [place] for further workup, patient is agreeable with this plan. Abdominal Pain Fem Course/Dx - Course Course Of Treatment: Chronically ill-appearing patient with jaundice, icterus as a result of prior Tylenol overdose. Her LFTs have been recently improving. She does have ascites today seen on CT scan which may be causative of her discomfort. She is actually very comfortable appearing. She has elevated WBC and a sodium of 120. She is not known to be a drinker. Gallbladder ultrasound shows a large single stone but no cholecystitis. It is possible that she have SBP but a tap of her belly is high risk at this point given her thin size and also her anticoagulant. - Diagnoses Differential Diagnosis: Positive: Bowel Obstruction, Constipation, Gall Bladder Disease, Hepatitis, Pancreatitis, Other - Cirrhotic changes, SBP, UTI Provider Diagnoses: Hyponatremia, Hyperglycemia, Abdominal pain - Provider Notifications Discussed Care Of Patient With: Amna Warner Time Discussed With Above Provider: 22:03 Instructed by Provider To: Other - Discussed patient's case with Dr. Warner at 22 :03. Dr. Warner accepts patient for admission to [facility] [place]. Discharge - Sign-Out/Discharge Documenting (check all that apply): Patient Departure - admit , Sign-Out Patient Signing out patient TO: Amna Warner Receiving patient FROM: Emanuel Marquez - Discharge Plan Condition: Fair Disposition: ADMITTED TO [facility] - Billing Disposition and Condition Condition: FAIR Disposition: Admitted to [facility] - Attestation Statements Document Initiated by Deon: Yes Documenting Scribe: Stanton Jaimes Provider For Whom Deon is Documenting (Include Credential): Emanuel Marquez MD Scribe Attestation: Stanton Medeiros, scribed for Emanuel Marquez MD on 05/25/18 at 0623. Scribe Documentation Reviewed: Yes Provider Attestation: The documentation as recorded by the sandraibStanton partida accurately reflects the service I personally performed and the decisions made by me, Emanuel Marquez MD
--- NOTE | 2018-05-24 20:44 | RAD ---
EXAM: CT Abdomen and Pelvis Without Intravenous Contrast CLINICAL HISTORY: 57 years old, female; Pain; Abdominal pain; Periumbilical; Additional info: Abd pain, HX of cirrhosis TECHNIQUE: Axial computed tomography images of the abdomen and pelvis without intravenous contrast. All CT scans at this facility use at least one of these dose optimization techniques: automated exposure control; mA and/or kV adjustment per patient size (includes targeted exams where dose is matched to clinical indication); or iterative reconstruction. Coronal and sagittal reformatted images were created and reviewed. COMPARISON: A/P W CT ABD/PEL W 12/07/2016 8:40 AM FINDINGS: Lung bases: Unremarkable. No mass. No consolidation. ABDOMEN: Liver: Slightly nodular contour compatible with the clinical history provided of cirrhosis. No mass. Gallbladder and bile ducts: Cholelithiasis. No ductal dilation. Pancreas: Unremarkable. No ductal dilation. Spleen: Splenomegaly. Adrenals: Unremarkable. No mass. Kidneys and ureters: Unremarkable. No obstructing stones. No hydronephrosis. Stomach and bowel: Unremarkable. No obstruction. No mucosal thickening. PELVIS: Appendix: Appendix not confidently identified. No secondary signs of appendicitis. Bladder: Unremarkable. No stones. Reproductive: Unremarkable as visualized. ABDOMEN and PELVIS: Intraperitoneal space: Moderate diffuse ascites. No free air. Bones/joints: Stable compression fracture of L1. Compression fracture of T9 also likely chronic given the absence of paraspinous hemorrhage. Diffuse degenerative changes of the thoracolumbar spine. No dislocation. Soft tissues: Unremarkable. Vasculature: Atherosclerotic calcification. No abdominal aortic aneurysm. Lymph nodes: Unremarkable. No enlarged lymph nodes. IMPRESSION: 1. Cholelithiasis. 2. Complications of cirrhosis including splenomegaly and diffuse ascites. 3. No other acute intra-abdominal findings.
[2018-05-24] MEDS ORDERED: Insulin LISPRO* 1 UNITS UNIT SUBCUT ONE (20:58)
[2018-05-24] MEDS ORDERED: Dextrose 50% Syringe 50 ML* 25 GM/50 ML SYRINGE IV PUSH PRN ×2 (20:58→23:04)
[2018-05-24] MEDS ORDERED: NS 0.9% 1000 ML* 1,000 ML IV ONE (20:59)
--- NOTE | 2018-05-24 22:12 | RAD ---
EXAM: US Abdomen Limited, Right Upper Quadrant CLINICAL HISTORY: 57 years old, female; Pain and signs and symptoms; Abdominal tenderness; Abdominal pain; Generalized; Additional info: Pain, stones on CT TECHNIQUE: Real-time ultrasound of the right upper quadrant with image documentation. COMPARISON: LIVER US LIVER 02/06/2018 8:51 AM FINDINGS: Liver: Diffusely coarse echotexture of the liver without distinct mass. No intrahepatic bile duct dilation. Gallbladder: Cholelithiasis is present. Technologist reports no patient pain when imaged over the gallbladder. Gallbladder wall thickness measures 6.8 mm, likely secondary to ascites. Common bile duct: Common bile duct measures 2.7 mm. No stones. No dilation. Pancreas: Normal appearing pancreas. Right kidney: Right kidney measures 10.3 x 5.5 x 4.1 cm. No stones. No hydronephrosis. Spleen: Spleen is enlarged measuring 15.4 x 5.6 x 6.5 cm. Aorta: Normal aorta. Inferior vena cava: Normal inferior vena cava. Free fluid: Ascites is present. IMPRESSION: 1. Cholelithiasis without other findings of cholecystitis. 2. Complications of known cirrhosis including ascites and splenomegaly.
[2018-05-24] MEDS ORDERED: NS 0.9% 1000 ML* 1,000 ML IV SCH (23:15)
[2018-05-24] MEDS ORDERED: NS 0.9% 500 ML* 500 ML IV ONE (23:21)
[2018-05-24] MEDS ORDERED: cefTRIAXone(*) 2 GM ADDV.VIAL IVPB ONE (23:30)
[2018-05-24] MEDS: cefTRIAXone(*) 2 GM in NS 0.9% 100 ML* 100 ML IVPB SCH (23:31)
[2018-05-24 23:37] LABS: Urine Appearance Cloudy; Urine Blood Negative (Negative); Urine Color Amber; Urine Ketones Negative (Negative); Urine Protein Negative (Negative); Urine Red Blood Cell Absent (Absent); Urine Specific Gravity 1.017 (1.010-1.030); Urine Urobilinogen Negative (Negative); Urine White Blood Cell 2+(11-20/hpf) (Absent)
[2018-05-25] MEDS ORDERED: NS 0.9% 1000 ML* 1,000 ML IV ONE (00:34)
[2018-05-25] MEDS ORDERED: Insulin GLARGINE(*) 1 UNITS UNIT SUBCUT SCH (01:00)
[2018-05-25] MEDS: metroNIDAZOLE IV 500 MG/100ML* 500 MG/100 ML BAG IVPB SCH ×3 (01:46→17:50)
--- NOTE | 2018-05-25 02:06 | HP ---
CC: Dr. Waller; Dr. Diaz.* HISTORY AND PHYSICAL: DATE OF ADMISSION: 05/24/18. PRIMARY CARE PROVIDER: Jose Luis Waller MD MY ATTENDING PHYSICIAN WHILE IN THE HOSPITAL: Dr. Amna Warner * (report dictated by Marcell Harris NP) CONSULTING SURGEON: Dr. Diaz. CHIEF COMPLAINT: Abdominal pain. HISTORY OF PRESENT ILLNESS: Mrs. 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 She has a history of alcoholism and cirrhosis, the last drink, she states was a year and a half to 2 years ago and she has a history of portal vein thrombosis, subsequently on nursing home anticoagulation. She is presenting today because she has had a week of intermittent abdominal pain, she states at times it was worse with food. She states that she does not feel any more distended. She also has been having some lower suprapubic pain as well, but no dysuria, no vaginal discharge, no foul smelling urine or any urinary frequency. She states the pain at times has been in her right upper quadrant, describes as sharp, stabbing pain that does come and go. She states she was scheduled to see her primary tomorrow, but tonight the pain came on suddenly, much worse, was not after eating tonight, but she states that previous time, she has had that after eating. She does admit to having some trouble with nausea, but no vomiting. No coffee ground emesis, no reagan blood per rectum or from vomit and no tarry stools. No diarrhea was reported. She denied having any fever, but did admit to having chills. Her temperature has been as high as 99.5, but nothing over 101. There was concern today when she came in because of the abdominal discomfort and her white count was up, her CRP was climbing, her lactic acid was up, her bili was climbing. In addition to this, she was also found to be hyponatremic. Because of these findings, we were asked to evaluate. She denied having any cough, no chest pain, no shortness of breath. Patient reported no skin ulcerations or open areas. PAST MEDICAL HISTORY: Significant for: 1. Seizure. 2. ETOH abuse in the past. 3. Cirrhosis. 4. Esophageal varices. 5. Portal vein thrombosis, on anticoagulation. PAST SURGICAL HISTORY: Denied. MEDICATIONS: Home medications according to the list provided include: 1. EpiPen 1 injection IM once as needed for allergic reactions. 2. Aldactone 50 mg daily. 3. Lasix 40 mg daily. 4. Eliquis 2.5 mg p.o. b.i.d. ALLERGIES TO MEDICATIONS: Include IV CONTRAST. She is also allergic to PEANUTS and SHRIMP. FAMILY HISTORY: She was adopted. SOCIAL HISTORY: She, again is a recovering alcoholic. Has not drank in about a year and a half to 2 years. She does not smoke. Surrogate decision maker is her . REVIEW OF SYSTEMS: There is no documented fever. She denied having any significant weight change to me. She denies having any double vision. No ear discharge. She denies having any rhinorrhea. There was no sore throat, no thyroid enlargement. She denied having any chest pain. There was no orthopnea. There was no nocturnal dyspnea. There is abdominal pain, but there was no nausea, no vomiting, no dysuria, no frequency. No seizure. No loss of conscious. No pruritus and no skin ulcerations. Review of 14 systems completed , all others negative. PHYSICAL EXAMINATION GENERAL: At this time, Mrs. Betts is a 57-year-old female patient. She is chronically ill-appearing. She appears to be older than stated age. She does not appear to be in any acute distress. VITAL SIGNS: Blood pressure 91/53, pulse 87, respirations 25, O2 sat 96%, and temperature 98.7. HEENT: Head: Atraumatic, normocephalic. Eyes: EOMs are intact. Sclera, she did have some icterus. Throat: Oral mucosa appears to be dry. No oropharyngeal erythema. NECK: Supple. LUNGS: Her lungs are clear to auscultation bilaterally. No wheezes, rales or rhonchi. HEART: Sounds S1, S2. She does have a grade 2-3/6 systolic murmur in the aortic listening area, which she is known about. ABDOMEN: Abdomen was soft, it was nondistended, but there was tenderness in the right upper quadrant suprapubic area. Bowel sounds were present. EXTREMITIES: Pulses were 2+ throughout. She had no peripheral edema. She is moving all 4 extremities with 5/5 strength. NEUROLOGIC: She is awake, alert, she is oriented x3. Tankroom Worker are equal. Tongue is midline. She had no gross focal deficits. SKIN: Intact. DIAGNOSTIC STUDIES/LAB DATA: WBC of 14.5, RBC of 3.18, hemoglobin of 11.3, hematocrit of 32, and platelet count of 121. Sodium was 120, potassium 4.6, chloride was 84, bicarb 27, BUN 15, creatinine 0.89. Glucose 488. Lactic 2.3. Calcium 10.5. Total bili is 0.2, AST 20, ALT 10, alk phos 105. CRP 109, albumin 2.6, lipase less than 10. Toxicology was negative for alcohol. She did have serial imaging here in the ED. She had an abdomen and pelvis CT obtained today. Impression: Cholelithiasis, complication is cirrhosis including splenomegaly and diffuse ascites. No other acute intraabdominal findings. She did have an EKG obtained today. The EKG today is showing a normal sinus rhythm with a rate of 90. She did appear to have LVH. No ST elevations or T-wave inversions. Previously, the LVH does appear to be more pronounced, but there is no significant changes. She had a gallbladder ultrasound obtained today, impression, cholelithiasis without other findings of cholecystitis. Complications of known cirrhosis including ascites and splenomegaly, common bile duct was not distended. She did have a chest x-ray obtained today when I reviewed it. I did not appreciate any acute infiltrate or pleural effusions at this point. She had a normal cardiac silhouette, no acute disease from my impression was noted. Old medical records reviewed. ASSESSMENT AND PLAN: Mrs. Betts is a 57-year-old female patient with a complex history, coming into the ED today with complaints of abdominal pain. We were asked to evaluate for admission. She will be admitted under inpatient status for: 1. Abdominal pain. I am concerned, if she is showing signs of sepsis. She has a white count, her heart rate is 90. She did get a 30 cc for acute bolus. She got a liter bolus down here. She needs another 300 cc, 30 mL/kg bolus, so I will give her a 500 cc bolus now. She already got a liter. She will be pancultured. We will get serial lactates. In addition to this, I will place her empirically on antibiotics and she will be wen cultured, we are awaiting on urine and blood cultures. I do think that she deserves a paracentesis, because she could certainly have SBP. In addition to this, she could be having biliary colic. She may have passed a stone, which may have risen that bili up to 8.9 today. So, I think we need to get a paracentesis done, send that off for gram stain, cultures, cell count, treated empirically and continue to monitor. I did place a consult to surgery to help us with this as she is still continuing to have right upper quadrant pain with no obvious source of infection, again, this could be biliary colic, she may have passed the stone, we may need to consider getting GI input, but at this point, given the imaging, I don't believe she has acute cholecystitis or a blocked duct, given the fact that duct appeared normal on the ultrasound. So, I am going to treat empirically for SBP , try to get cultures tomorrow. Unfortunately, I don't think we can get it tonight, because she has been on Eliquis, which I will be holding. 2. History of portal vein thrombosis. Again, hold the Eliquis until we can get the paracentesis done. We will send off body fluid analysis for this and then restart Eliquis meri. 3. History of seizures. We wrote her seizure precautions. 4. History of cirrhosis. She does appear to be dehydrated, so I am holding her diuretics, we will restart those when able. 5. Hyponatremia. It corrects out to 126. At this point, again, she does appear to be dehydrated. I am going to repeat her BMP later tonight to see if this corrects. She does have some component of pseudohyponatremia, given her elevated glucose. I will set off a urine osmo and serum osmo, TSH and cortisol levels, and urine sodium although this may be skewed because she has been on diuretics recently. 6. Hyperbilirubinemia. Again, this could be secondary to decompensated liver failure, it could be secondary to her passing a stone recently. We will trend these and monitor. 7. Lactic acidosis. Again, we are bolusing her, we will trend these. 8. Diabetes, presumably type 2. Again, her random sugar today was 488. I am checking an A1C. I did put her on Lispro sliding scale. 9. Fluids, electrolytes, nutrition. She can have a clear liquid diet. Then she will be n.p.o. after midnight for possible paracentesis in the morning. 10. Code status. She is a full code. TIME SPENT: On the admission 60 minutes, greater than half time spent face-to- face with the patient, obtaining my history and physical, other half time spent going over the plan of care with the patient and implementing the plan of care. I did discuss the plan of care with my attending, Dr. Warner, she is in agreement. MARCELL HARRIS, POLA [id number]/CPS #: [id number] THELMA
[2018-05-25 03:22] LABS: EGFR Non-African American 73.7 (>60)
[2018-05-25] MEDS ORDERED: NS 0.9% 500 ML* 500 ML IV ONE ×2 (03:31→12:55)
[2018-05-25] MEDS: traMADol TAB* 50 MG PO PRN ×2 (04:08→14:01)
[2018-05-25 06:36] LABS: EGFR Non-African American 84.6 (>60)
[2018-05-25 07:00] LABS: ABS Basophils 0 10^3/ul (0-0.2); ABS Eosinophils 0 10^3/ul (0-0.6); ABS Lymphocytes 1.3 10^3/ul (1.0-4.8); ABS Monocytes 0.9 10^3/ul (0-0.8); ABS Neutrophils 6.8 10^3/ul (1.5-7.7); ABS Nucleated RBC 0 10^3/ul; Eosinophil % 0.4 % (0-6); Hematocrit 27 % (35-47); Hemoglobin 9.7 g/dl (12.0-16.0); Lymphocyte % 14.2 % (25-47); Mean Corpuscular HGB Conc 36 g/dl (31-36); Mean Corpuscular Hemoglobin 37 pg (27-31); Mean Corpuscular Volume 102 fL (80-97); Mean Platelet Volume 7.9 um3 (7.4-10.4); Nucleated Red Blood Cells % 0.2; Platelet Count 75 10^3/ul (150-450); Red Blood Count 2.65 10^6/ul (4.00-5.40); Red Cell Distribution Width 15 % (10.5-15)
--- NOTE | 2018-05-25 07:42 | RAD ---
INDICATION: Chest pain COMPARISON: None TECHNIQUE: An AP portable view obtained at 2210 hours is submitted. FINDINGS: Bones/Soft Tissues: There are no acute bony findings. Cardiomediastinal: The cardiomediastinal silhouette is normal. Lungs: There are no infiltrates. Pleura: There are no pleural effusions. Other: None IMPRESSION: NO ACTIVE DISEASE. R1
[2018-05-25] MEDS: Insulin LISPRO* 1 UNITS UNIT SUBCUT SCH ×5 (08:52→22:09)
[2018-05-25 15:19] LABS: Hematocrit 32 % (35-47); Hemoglobin 10.4 g/dl (12.0-16.0)
--- NOTE | 2018-05-25 15:41 | PN ---
Subjective Date of Service: 05/25/18 Interval History: Patient was seen and examined earlier today. Just returned from OR where she underwent paracentesis by Dr. Arshad. Reports felling a little better, still with some epigastric pain, but denies nausea or vomiting. No fever last night. She did notice being jaundice for past couple of days. Denies hx biliary colics or issues with gallbladder in the past. Last ETOH beverage over [address] Avalos for GI follow-up for years, but has not seen anybody since he left a year ago. Denies itching, hematemesis, chest pain, weakness or SOB. Family History: Unchanged from Admission Social History: Unchanged from Admission Past Medical History: Unchanged from Admission Objective Active Medications: Dextrose (D50w Syringe 50 Ml*) 12.5 gm IV PUSH .FOR FS < 60 - SS PRN PRN Reason: FS < 60 Metronidazole/Sodium Chloride (Flagyl 500 Mg Ivpb*) 500 mg in 100 mls @ 100 mls /hr IVPB Q8H [facility] Last Admin: 05/25/18 08:52 Dose: 100 mls/hr Ceftriaxone Sodium 2 gm/ (Sodium Chloride) 100 mls @ 200 mls/hr IVPB Q24H [facility] Last Admin: 05/24/18 23:31 Dose: 200 mls/hr Insulin Glargine (Lantus(*)) 10 units SUBCUT Q24H [facility] Last Admin: 05/25/18 02:07 Dose: 10 unit Insulin Human Lispro (Humalog*) 0 units SUBCUT ACHS [facility]; Protocol Last Admin: 05/25/18 14:26 Dose: 4 units Ondansetron HCl (Zofran Inj*) 4 mg IV Q6H PRN PRN Reason: NAUSEA Tramadol HCl (Ultram*) 25 mg PO Q8H PRN PRN Reason: PAIN Last Admin: 05/25/18 14:01 Dose: 25 mg Vital Signs - 8 hr 05/25/18 05/25/18 05/25/18 07:53 07:57 11:00 Temperature 99.9 F Pulse Rate 95 Respiratory 16 15 Rate Blood Pressure 92/40 82/47 (mmHg) O2 Sat by Pulse 100 Oximetry 05/25/18 05/25/18 05/25/18 12:34 12:43 14:01 Temperature 99.7 F 99.7 F Pulse Rate 97 97 Respiratory 14 16 Rate Blood Pressure 85/42 85/42 (mmHg) O2 Sat by Pulse 94 94 Oximetry Oxygen Devices in Use Now: None Appearance: Appears cachectic and jaundice, but comfortable and in NAD Eyes: PERRLA, - - Sclera icteric Ears/Nose/Mouth/Throat: Clear Oropharnyx, - - Mucous membranes dry Neck: NL Appearance and Movements; NL JVP, Trachea Midline Respiratory: Symmetrical Chest Expansion and Respiratory Effort, Clear to Auscultation Cardiovascular: NL Sounds; No Murmurs; No JVD, RRR Abdominal: - - Abdomen soft, round and mildly distended. Moderate epigastric tenderness without gaurding, rigidity or rebound. Negative Leblanc's sign. No caput medosa, hernias or masses. Extremities: No Edema Neurological: Alert and Oriented x 3, NL Sensation, NL Muscle Strength and Tone Nutrition: Taking PO's Result Diagrams: 05/25/18 15:08 05/25/18 05:53 Additional Lab and Data: Lab Results 05/24/18 05/24/18 05/24/18 Range/Units 19:28 19:28 19:28 WBC 14.5 H (3.5-10.8) 10^3/ul RBC 3.18 L (4.00-5.40) 10^6/ul Hgb 11.3 L (12.0-16.0) g/dl Hct 32 L (35-47) % MCV 102 H (80-97) fL MCH 35 H (27-31) pg MCHC 35 (31-36) g/dl RDW 15 (10.5-15) % Plt Count 121 L (150-450) 10^3/ul MPV 8.3 (7.4-10.4) um3 Neut % (Auto) 79.2 (38-83) % Lymph % (Auto) 11.2 L (25-47) % Cecil % (Auto) 8.9 H (0-7) % Eos % (Auto) 0.1 (0-6) % Baso % (Auto) 0.6 (0-2) % Absolute Neuts (auto) 11.5 H (1.5-7.7) 10^3/ul Absolute Lymphs (auto) 1.6 (1.0-4.8) 10^3/ul Absolute Monos (auto) 1.3 H (0-0.8) 10^3/ul Absolute Eos (auto) 0 (0-0.6) 10^3/ul Absolute Basos (auto) 0.1 (0-0.2) 10^3/ul Absolute Nucleated RBC 0 10^3/ul Nucleated RBC % 0 Sodium 120 L (135-145) mmol/L Potassium 4.6 (3.5-5.0) mmol/L Chloride 84 L (101-111) mmol/L Carbon Dioxide 27 (22-32) mmol/L Anion Gap 9 (2-11) mmol/L BUN 15 (6-24) mg/dL Creatinine 0.89 (0.51-0.95) mg/dL Est GFR ( Amer) 78.8 (>60) Est GFR (Non-Af Amer) 65.1 (>60) BUN/Creatinine Ratio 16.9 (8-20) Glucose 488 H (70-100) mg/dL Lactic Acid 3.3 H* (0.5-2.0) mmol/L Calcium 10.5 H (8.6-10.3) mg/dL Total Bilirubin 8.20 H (0.2-1.0) mg/dL AST 20 (13-39) U/L ALT 11 (7-52) U/L Alkaline Phosphatase 105 H (34-104) U/L C-Reactive Protein 109.31 H (<8.01) mg/L Total Protein 6.1 L (6.4-8.9) g/dL Albumin 2.6 L (3.2-5.2) g/dL Globulin 3.5 (2-4) g/dL Albumin/Globulin Ratio 0.7 L (1-3) Lipase < 10 L (11.0-82.0) U/L Microbiology and Other Data: Microbiology 05/25/18 11:59 Gram Stain - Final Body Fluid Diagnostic Imaging: Patient Name: ROXANA GUADALUPE Medical Record#: [id number] Ordering Physician: Emanuel Marquez MD Acct.#: [id number] : 1960 Age: 57 Sex: F Location: EMERGENCY DEPARTMENT Exam Date: 05/24/182053 ADM Status: REG ER Order Information: GALL BLADDER Accession Number: [id number] CPT: 50316 EXAM: US Abdomen Limited, Right Upper Quadrant CLINICAL HISTORY: 57 years old, female; Pain and signs and symptoms; Abdominal tenderness; Abdominal pain; Generalized; Additional info: Pain, stones on CT IMPRESSION: 1. Cholelithiasis without other findings of cholecystitis. 2. Complications of known cirrhosis including ascites and splenomegaly. <Electronically signed by Aayush Ferreira MD in OV> 05/24/182211 CT scan abdomen and pelvis with cholelithiasis and diffuse ascites. EKG Data: . Assess/Plan/Problems-Billing Assessment: A 57 y/o female with complex PMH including alcoholic liver cirrhosis, who presented to ED with abdominal pain, fever and jaundice. - Patient Problems (1) Abdominal pain Current Visit: Yes Status: Acute Comment: - Clinically improving - Unclear etiology, thought it could be related to end stage liver disease - Leukocytosis resolved, paracentesis done earlier today, final cultures pending. - Spoke with Dr. Arshad, some bleeding during paracentesis, will recheck H/H at 1500 today. - Continue Ultram, no narcotics on board for now due to hypotension - Lipase normal, no evidence of clinical pancreatitis, will maintain on clear liquids for now. - No evidence of acute cholecystitis on CT or ultrasound (2) Alcoholic cirrhosis of liver with ascites Current Visit: Yes Status: Acute Comment: - Await peritoneal fluid analysis and cultures - GI consult obtained, await recommendations. - Hx portal HTN and portal vein thrombosis. - Will resume Eliquis in AM since paracentesis was complicated with bleeding. - INR elevated, likely chronic 2/2 liver failure (3) Jaundice Current Visit: Yes Status: Acute Comment: - Total bilirubin down to 5.2 today - Evidence of cholelithiasis on ultrasound, no CBD dilatation, possibly passed a gallstone leading to a peack in total bili. - Check labs in AM (4) Hyponatremia Current Visit: Yes Status: Acute Comment: - Likely in the setting of dehydartion - Serum and urine osmolarity, cortisol and TSH pending (5) Lactic acidosis Current Visit: Yes Status: Acute Comment: - Multiple boluses given, lactic acid normalized. (6) Diabetes mellitus Current Visit: Yes Status: Acute Comment: - Patient unaware of hyperglycemic state. - HgA1c 11.5 consistent with prolonged glucose intolerance. - Endocrinology consult pending - Will cover with Lispro per sliding scale, finger sticks per protocol. (7) DVT prophylaxis Current Visit: Yes Status: Acute Comment: - Mechanical only for now, then will resume Eliquis tomorrow (8) Full code status Current Visit: Yes Status: Acute Status and Disposition: Inpatient. Anticipate discharge to home once medically stable.
--- NOTE | 2018-05-25 16:22 | CONSULT ---
Consult Consult: SUBJECTIVE: 57 yo F with alcoholic cirrhosis complicated by ascites and portal vein thrombosis, presenting to [facility] ED on 05/24/18 with acute abdominal pain, malaise, weight loss and polyuria. On presetation, she was found to have moderate hyponatremia and hyperglycemia; the latter has been seen on prior admissions, but never diagnosed with diabetes. She was admitted for fluid resuscitation and treatment of presumed sepsis with abdominal source. Note is made of random BG>200 since at least 2017 with several measurements > 350 in 2018 prior to this admission. She denies any recent medication changes ( steroids) that could have aggravated diabetes, although she was treated for a jaw fracture complicated by soft tissue infection earlier this year. There is no family history of diabetes. There is no personal history of pancreatitis. Type of Diabetes: presumed type 2 complicated by chronic liver disease Diabetes Onset: 2015 Initial Medications: N/A Current Medications: insulin SSI Last A1c: 11.5% OBJECTIVE: Initial Vital Signs Temp 97.9 F 05/24/18 17:19 Pulse 110 05/24/18 17:19 Resp 16 05/24/18 17:19 BP 105/57 05/24/18 17:19 Pulse Ox 98 05/24/18 17:19 GEN: jaundice present, frail, appears older than state age ENT: no thyromegaly, EOMI CHEST: anterior chest clear CV: RRR, apical murmur is appreciate, loudest in systole ABD: distended, fluid wave and succussion splash noted, mild TTP with guarding EXT: no edema NEURO: no asterixis Glucose Results 05/25/18 07:53 331 05/25/18 14:12 319 05/25/18 15:08 05/25/18 05:53 INR (Anticoag Therapy) 2.88 (0.77-1.02) H 05/24/18 22:52 Total Bilirubin 5.20 mg/dL (0.2-1.0) H D 05/25/18 05:53 AST 15 U/L (13-39) 05/25/18 05:53 ALT 8 U/L (7-52) 05/25/18 05:53 Alkaline Phosphatase 74 U/L (34-104) 05/25/18 05:53 Total Protein 4.6 g/dL (6.4-8.9) L 08/30/18 05:53 Albumin 1.9 g/dL (3.2-5.2) L 05/25/18 05:53 Globulin 2.7 g/dL (2-4) 05/25/18 05:53 Albumin/Globulin Ratio 0.7 (1-3) L 05/25/18 05:53 TSH 2.55 mcIU/mL (0.34-5.60) 05/24/18 19:28 ASSESSMENT: 1. Type 2 Diabetes Mellitus - Patient has had chronic hyperglycemia for at least 1 year, which is reflected by her A1c and long-standing polyuria that was attributed to diuretic therapy for cirrhosis. Her insulin requirement is difficult to predict, but it will be important to titrate insulin doses this admission to prevent hyperglycemia in the future. Her goal BG are 100-180, which can be achieved with the regimen below. Recommend increasing Lantus dose by 4 units/day until AMBG<180. Humalog doses should be titrated by 2 units/dose until pre-meal BG are consistently <180. Use sliding scale cautiously -- increments should be no larger than 5% of total daily dose of insulin (1-2 units in this case). It is likely that she will require insulin at home. - START Humalog (insulin lispro) 6 units TID-AC - HOLD if NPO or BG<80 - CHANGE Humalog sliding scale to 1 unit for every BG>200 - HOLD if NPO - START Lantus (insulin glargine) 14 units QHS - ADD 3am fingerstick glucose to TID-AC & HS fingerstick - nursing to educate patient and on fingerstick glucose monitoring and insulin injections 2. Hyponatremia - Asymptomatic hyponatremia likely due to combination of fluid depletion and hyperglycemia. Less likely pseudohyponatremia. It is likely that she was overdiuresed as a result of glycosuria, furosemide and spironolactone as an outpatient. Her corrected Na has improved with IV hydration and cessation of diuretics. Correction of hyperglycemia may also help. - hold furosemide/spironolactone - avoid IVNS replacement unless patient is dehydrated Please call with questions -- [phone].
[2018-05-25] MEDS ORDERED: Dextrose 50% Syringe 50 ML* 25 GM/50 ML SYRINGE IV PUSH PRN (17:36)
--- NOTE | 2018-05-25 17:50 | CONSULT ---
Consult Consult: GI Consult Full note to be dictated A/P 1.) Decompensated cirrhosis 2/2 etoh: suspect main etiology is infection, likely SBP. The tap appears to be traumatic but even correcting for this the PMN count is still high. Would plan on treating with ABX for 7 days. May benefit from prophylaxis at discharge. Her Meld NA is 30. Her Meld over the last year has been in the mid to high 20s. It has been recommended that she be evaluated at [facility] for possible transplant given her consistent MELD> 15 but they had refused in past. I had an extensive discussion regarding the MELD score, prognosis and options. She has been sober for 2 years. Still seem relatively resistant to referral but will consider. I feel we may be starting to run out of time given this discussion has occurred before. They do not have good insight into the severity of her disease despite lengthy discussion. In terms of acute illness would add lactulose 15 BID, hold for diarrhea. Frequent checks of PT/INR, CMP and MELD. She had an EGD in 11/29/16 that showed Grade I EV , PHG. She should have a repeat endoscopy as outpatient if she continues to have no overt signs of loss. She takes 20mg of lasix and 25 mg of spironolactone. 2.) PVT: on anticoagulation Elliquis. 3.)Etoh abuse: in remission x 2 years. 4.) Protein calorie malnutrition severe: Would recommend nutrition consult and add Boost or other supplement to meals. 5.) Relatively new onset hyperglycemia/DM. Would consider triple phase CT before discharge to eval pancreas for this and also for HCC surveillance. Dr. Shepard available 05/26/18 through 05/29/18 for questions. Thank you kindly for the consult Spencer Cohen [id number]
[2018-05-25] MEDS ORDERED: Ketorolac INJ* 30 MG/ML 1 ML VIAL IV PUSH ONE (18:15)
[2018-05-25 18:57] LABS: Hematocrit 28 % (35-47); Hemoglobin 9.7 g/dl (12.0-16.0)
--- NOTE | 2018-05-25 20:27 | CONS ---
CC: Primary Care Physician, Dr. Waller * GI CONSULT NOTE: DATE OF CONSULT: 05/25/18 REQUESTING PROVIDERS: Amna Warner MD and Marcell Harris NP REASON FOR CONSULTATION: Decompensated cirrhosis with ascites. HISTORY OF PRESENT ILLNESS: This is a 57-year-old female with a history of alcoholic cirrhosis, presenting to the hospital with abdominal pain for the last 2 weeks. She states that the pain is kind of cramping and diffuse, 3 or 4/ 10, but kind of always there. No distinct fever, chills, or rigors. Nothing seems to make it better or worse. Her appetite has been quite poor and she has lost 25 pounds over the last 2 to 3 months. She denies any black or blood in the stool. She admits to being more constipated lately, having a bowel movement roughly every 1 to 2 days with some straining. She does not take any lactulose at home. She does take Lasix 20 mg and spironolactone 25 mg for her ascites. Her last alcohol use was over 2 years ago. She has had a consistent elevation in her MELD score above 20 and was recommended for evaluation at [facility] for possible transplant, but had refused in the past. She denies any dysphagia, odynophagia. No nausea, emesis, or hematemesis. No diarrhea. The remainder of the 12-system review of systems is grossly negative. PAST MEDICAL HISTORY: Significant for: 1. Seizure. 2. Alcohol abuse in the past. 3. Cirrhosis secondary to EtOH. 4. Grade 1 esophageal varices in 2017. 5. Portal vein thrombosis, on anticoagulation. PAST SURGICAL HISTORY: Endoscopy on 11/29/16 showing portal hypertensive gastropathy and grade 1 esophageal varices too small to band. MEDICATIONS: Home medications include: 1. EpiPen. 2. Aldactone. 3. Lasix. 4. Eliquis. ALLERGIES TO MEDICATIONS: Include IV CONTRAST. She is also allergic to PEANUTS and SHRIMP. FAMILY HISTORY: Adopted. Unknown history of liver or colon problems. SOCIAL HISTORY: Prior alcoholic, but has been sober for 2 years. Does not smoke. REVIEW OF SYSTEMS: Significant for a 25-pound weight loss as mentioned in the HPI. The remainder of the 14-system review of systems is negative except as described in the HPI. PHYSICAL EXAMINATION: Vital Signs: Temperature 100.3, pulse of 100, respiratory rate 16, blood pressure 94/53. In general, she is a chronically ill appearing woman who appears much older than her stated age, frankly jaundiced; however, she is alert and oriented x3. HEENT: Atraumatic, normocephalic. Pupils equal, round, reactive to light. Conjunctivae are pink. The sclerae are icteric. Neck is supple. Trachea midline. Heart: Regular rate and rhythm. S1, S2. There is a 2 to 3 systolic ejection murmur appreciated. Lungs: Grossly clear to auscultation. No wheezes, rales, or rhonchi. Abdomen is soft with mid distention. Mild diffuse tenderness on deep palpation. Bowel sounds are present. Minimal shifting dullness appreciated. Extremities: Pulses 2+ throughout. No reagan peripheral edema. Neurologic: Awake and alert x3. No gross focal deficits. Skin is intact without rashes or lesions. DIAGNOSTIC STUDIES/LABORATORY DATA: Include sodium is 126, chloride is 97, glucose is 336. Lactic acid on admission is 2.2, now down to 1.7. Total bilirubin is 5.20. Albumin is 1.9. Urinalysis was significant for trace leukocyte esterase and 2+ wbc's. She did have a paracentesis that revealed a WBC count of 7,000; however, this was complicated by a bloody tap with RBC count elev. 96% neutrophils were appreciated. INR is 2.88. Hemoglobin is 10.4 , hematocrit is 32. She had a CT noncontrast done on 05/24/18. This revealed cholelithiasis and splenomegaly and diffuse ascites. Gallbladder ultrasound on 05/24/18 revealed cholelithiasis with no CBD dilation. ASSESSMENT AND PLAN: 1. Decompensated cirrhosis secondary to EtOH. Suspect the main etiology for decompensation could be infection, likely spontaneous bacterial peritonitis vs. urinary source. The tap appears to be traumatic but the PMN count is still high even on correcting. We plan on treating for antibiotics for at least 7 days, may benefit from prophylaxis at discharge. Her MELD sodium is 30. Her MELD over the last year has been in the mid to high 20s. It has been recommended she be evaluated at [facility] for possible transplant given her consistent MELD greater than 15, but she has refused along with her in the past. I had an extensive discussion regarding the MELD score, the prognosis, the options and what the MELD score means truly means in terms of prognosis for the future. She has been sober for 2 years and relatively healthy otherwise. I think she would be a reasonable transplant candidate if she elects to pursue it; however, her and her both seem relatively resistant to referral, but they will consider it. I feel we may be starting to run out of time given this discussion that has occurred before. They do not appear to have good insight into the severity of the disease despite a lengthy discussion by multiple providers. In terms of acute illness, I would add lactulose 15 b.i.d., hold for diarrhea given that she is not moving her bowels well. We would also check a PT/INR, CMP for MELD score every couple or days or so. She had an EGD on 11/29/16 that showed grade 1 esophageal varices and portal hypertensive gastropathy. She should have a repeat endoscopy as an outpatient if she continues to have no overt signs of bleeding. She takes 20 mg of Lasix and 25 mg of spironolactone at home. 2. Portal vein thrombosis, on anticoagulation, Eliquis. 3. EtOH abuse, in remission for 2 years. 4. Severe protein-calorie malnutrition. We recommended a nutrition consult. Add Boost or other supplements to her meals. 5. Relatively new onset hyperglycemia, diabetes. She has an allergy to CT DYE. She had a noncontrast scan that did not show any lesions in the pancreas, but is suboptimal without contrast. Would consider MRI before discharge for this reason and also for hepatocellular carcinoma surveillance. I will also check an AFP. Dr. Shepard is available from 05/26/18 through 06/25/18 for questions. Thank you kindly for this consult. [id number]/[facility] #: [id number] [facility] CENTERJesus
[2018-05-25] MEDS ORDERED: Apixaban* 2.5 MG TAB PO SCH (21:00)
--- NOTE | 2018-05-25 21:17 | OP ---
CC: Dr. Waller * DATE OF OPERATION: 05/25/18 - ROOM #413 DATE OF : 58 SURGEON: Naveed Arshad MD MACHINE CANDLE MOLDER: None. ANESTHESIOLOGIST: None. PRE-OP DIAGNOSIS: Ascites. POST-OP DIAGNOSIS: Ascites. OPERATIVE PROCEDURE: Abdominal ultrasonography and paracentesis. DESCRIPTION OF PROCEDURE: The patient was supine in the procedure room. Abdominal ultrasonography was carried out and the best pocket of fluid appeared to be in the left upper quadrant. It was only about 2 cm in depth. The area was prepped with antiseptic Betadine. Local anesthetic was administered with 1 % plain lidocaine. Skin needle was used to identify thin christina ascites fluid; however, upon placing the paracentesis catheter and needle, bloody drainage was observed. The needle was removed and pressure was held for a few minutes. Skin needle was again used to aspirate the fluid, which now appeared bloody, and 30 mL was removed for specimen and this was placed into specimen containers and sent to the laboratory. A bandage was placed and she will be brought back to the medical floor. I did discuss this directly with the hospitalist service that there is a chance of additional bleeding and we should monitor her hemoglobin and we will be doing so this afternoon. [id number]/[facility] #: [id number] [facility]ENTERJesus
[2018-05-25 21:37] LABS: Hematocrit 27 % (35-47); Hemoglobin 9.3 g/dl (12.0-16.0)
[2018-05-25] MEDS: Lactulose* 15 ML UDC PO SCH (22:02)
[2018-05-25] MEDS: Insulin GLARGINE(*) 1 UNITS UNIT SUBCUT SCH (22:09)
[2018-05-25] MEDS: cefTRIAXone(*) 2 GM in NS 0.9% 100 ML* 100 ML IVPB SCH (23:53)
[2018-05-26] MEDS: metroNIDAZOLE IV 500 MG/100ML* 500 MG/100 ML BAG IVPB SCH ×3 (00:29→16:42)
[2018-05-26] MEDS: traMADol TAB* 50 MG PO PRN ×4 (00:34→21:47)
[2018-05-26 06:43] LABS: Hematocrit 28 % (35-47); Hemoglobin 9.8 g/dl (12.0-16.0); Mean Corpuscular HGB Conc 36 g/dl (31-36); Mean Corpuscular Hemoglobin 36 pg (27-31); Mean Corpuscular Volume 101 fL (80-97); Mean Platelet Volume 7.7 um3 (7.4-10.4); Platelet Count 99 10^3/ul (150-450); Red Blood Count 2.73 10^6/ul (4.00-5.40); Red Cell Distribution Width 16 % (10.5-15); White Blood Count 13.1 10^3/ul (3.5-10.8)
[2018-05-26 06:49] LABS: INR 2.36 (0.77-1.02)
[2018-05-26 07:02] LABS: EGFR Non-African American 63.5 (>60)
[2018-05-26 07:12] LABS: ABS Basophils 0 10^3/ul (0-0.2); ABS Eosinophils 0.1 10^3/ul (0-0.6); ABS Lymphocytes 1.3 10^3/ul (1.0-4.8); ABS Monocytes 1.3 10^3/ul (0-0.8); ABS Neutrophils 10.3 10^3/ul (1.5-7.7); ABS Nucleated RBC 0 10^3/ul; Eosinophil % 0.4 % (0-6); Lymphocyte % 10.3 % (25-47); Nucleated Red Blood Cells % 0
[2018-05-26] MEDS: Lactulose* 15 ML UDC PO SCH ×2 (08:25→21:40)
[2018-05-26] MEDS: Insulin LISPRO* 1 UNITS UNIT SUBCUT SCH ×7 (08:25→21:36)
--- NOTE | 2018-05-26 14:17 | PN ---
Subjective Date of Service: 05/26/18 Interval History: Pt is feeling ok. Her pain is controlled with tramadol. She states she is doing better with eating/drinking. She is moving her bowels without issue now. No dysuria. No SOB. Family History: Unchanged from Admission Social History: Unchanged from Admission Past Medical History: Unchanged from Admission Objective Active Medications: Dextrose (D50w Syringe 50 Ml*) 12.5 gm IV PUSH .FOR FS < 60 - SS PRN PRN Reason: FS < 60 Metronidazole/Sodium Chloride (Flagyl 500 Mg Ivpb*) 500 mg in 100 mls @ 100 mls /hr IVPB Q8H [facility] Last Admin: 05/26/18 08:25 Dose: 100 mls/hr Ceftriaxone Sodium 2 gm/ (Sodium Chloride) 100 mls @ 200 mls/hr IVPB Q24H [facility] Last Admin: 05/25/18 23:53 Dose: 200 mls/hr Insulin Glargine (Lantus(*)) 14 units SUBCUT Q24H [facility] Last Admin: 05/25/18 22:09 Dose: 14 units Insulin Human Lispro (Humalog*) 0 units SUBCUT ACHS [facility]; Protocol Last Admin: 05/26/18 12:54 Dose: 3 units Insulin Human Lispro (Humalog*) 6 units SUBCUT AC [facility] Last Admin: 05/26/18 12:54 Dose: 6 units Lactulose (Lactulose*) 15 ml PO BID [facility] Last Admin: 05/26/18 08:25 Dose: 15 ml Ondansetron HCl (Zofran Inj*) 4 mg IV Q6H PRN PRN Reason: NAUSEA Tramadol HCl (Ultram*) 25 mg PO Q8H PRN PRN Reason: PAIN Last Admin: 05/26/18 10:05 Dose: 25 mg Vital Signs - 8 hr 05/26/18 05/26/18 05/26/18 07:57 10:05 10:11 Temperature 99.0 F Pulse Rate 106 Respiratory 18 16 16 Rate Blood Pressure 86/44 (mmHg) O2 Sat by Pulse 92 Oximetry 05/26/18 12:32 Temperature Pulse Rate Respiratory 16 Rate Blood Pressure (mmHg) O2 Sat by Pulse Oximetry Oxygen Devices in Use Now: None Appearance: Middle aged petite female, jaundiced with scleral icterus, lying in bed, NAD Eyes: No Scleral Icterus Ears/Nose/Mouth/Throat: Mucous Membranes Moist Respiratory: Symmetrical Chest Expansion and Respiratory Effort, Clear to Auscultation Cardiovascular: RRR, No Edema, - - III/ systolic murmur Abdominal: - - BS+ soft, moderately distended, mildly tender to palpation on the R Extremities: No Clubbing, Cyanosis Skin: No Nodules or Sclerosis Neurological: Alert and Oriented x 3 Result Diagrams: 05/26/18 06:21 05/26/18 06:21 Additional Lab and Data: Lab Results 05/24/18 05/24/18 05/24/18 Range/Units 19:28 19:28 19:28 WBC 14.5 H (3.5-10.8) 10^3/ul RBC 3.18 L (4.00-5.40) 10^6/ul Hgb 11.3 L (12.0-16.0) g/dl Hct 32 L (35-47) % MCV 102 H (80-97) fL MCH 35 H (27-31) pg MCHC 35 (31-36) g/dl RDW 15 (10.5-15) % Plt Count 121 L (150-450) 10^3/ul MPV 8.3 (7.4-10.4) um3 Neut % (Auto) 79.2 (38-83) % Lymph % (Auto) 11.2 L (25-47) % [place] % (Auto) 8.9 H (0-7) % Eos % (Auto) 0.1 (0-6) % Baso % (Auto) 0.6 (0-2) % Absolute Neuts (auto) 11.5 H (1.5-7.7) 10^3/ul Absolute Lymphs (auto) 1.6 (1.0-4.8) 10^3/ul Absolute Monos (auto) 1.3 H (0-0.8) 10^3/ul Absolute Eos (auto) 0 (0-0.6) 10^3/ul Absolute Basos (auto) 0.1 (0-0.2) 10^3/ul Absolute Nucleated RBC 0 10^3/ul Nucleated RBC % 0 Sodium 120 L (135-145) mmol/L Potassium 4.6 (3.5-5.0) mmol/L Chloride 84 L (101-111) mmol/L Carbon Dioxide 27 (22-32) mmol/L Anion Gap 9 (2-11) mmol/L BUN 15 (6-24) mg/dL Creatinine 0.89 (0.51-0.95) mg/dL Est GFR ( Amer) 78.8 (>60) Est GFR (Non-Af Amer) 65.1 (>60) BUN/Creatinine Ratio 16.9 (8-20) Glucose 488 H (70-100) mg/dL Lactic Acid 3.3 H* (0.5-2.0) mmol/L Calcium 10.5 H (8.6-10.3) mg/dL Total Bilirubin 8.20 H (0.2-1.0) mg/dL AST 20 (13-39) U/L ALT 11 (7-52) U/L Alkaline Phosphatase 105 H (34-104) U/L C-Reactive Protein 109.31 H (<8.01) mg/L Total Protein 6.1 L (6.4-8.9) g/dL Albumin 2.6 L (3.2-5.2) g/dL Globulin 3.5 (2-4) g/dL Albumin/Globulin Ratio 0.7 L (1-3) Lipase < 10 L (11.0-82.0) U/L Microbiology and Other Data: Microbiology 05/25/18 11:59 Gram Stain - Final Body Fluid Diagnostic Imaging: Patient Name: ROXANA GUADALUPE Medical Record#: [id number] Ordering Physician: Emanuel Marquez MD Acct.#: [id number] : 1960 Age: 57 Sex: F Location: EMERGENCY DEPARTMENT Exam Date: 05/24/182053 ADM Status: REG ER Order Information: US GALL BLADDER Accession Number: [id number] CPT: 78050 EXAM: US Abdomen Limited, Right Upper Quadrant CLINICAL HISTORY: 57 years old, female; Pain and signs and symptoms; Abdominal tenderness; Abdominal pain; Generalized; Additional info: Pain, stones on CT IMPRESSION: 1. Cholelithiasis without other findings of cholecystitis. 2. Complications of known cirrhosis including ascites and splenomegaly. <Electronically signed by Aayush Ferreira MD in [facility]> 05/24/[address] scan abdomen and pelvis with cholelithiasis and diffuse ascites. EKG Data: . Assess/Plan/Problems-Billing A 57 y/o female with complex PMHx including alcoholic liver cirrhosis, who presented to ED with abdominal pain, fever and jaundice. - Patient Problems (1) Abdominal pain Current Visit: Yes Status: Acute Code(s): R10.9 - UNSPECIFIED ABDOMINAL PAIN SNOMED Code(s): 25585786 Comment: Etiology is unclear. No clear evidence for SBP. Await culture of ascites. Tap was bloody making cell count uninterpretable. Continue tramadol which pt states is controlling her pain. ? pain secondary to stretch of the abdominal muscles from ascites. (2) Alcoholic cirrhosis of liver with ascites Current Visit: Yes Status: Acute Code(s): K70.31 - ALCOHOLIC CIRRHOSIS OF LIVER WITH ASCITES SNOMED Code(s): 909937395 Comment: Appreciate GI evaluation. Will resume eliquis tonight for portal vein thrombosis. Resume spironolactone and lasix but decrease doses secondary to low BP. (3) Diabetes mellitus Current Visit: Yes Status: Acute Code(s): E11.9 - TYPE 2 DIABETES MELLITUS WITHOUT COMPLICATIONS SNOMED Code(s): 09845133 Comment: New dx of diabetes. Continue lantus and lispro. Appreciate Dr. Wright' s input. (4) Hyponatremia Current Visit: Yes Status: Acute Code(s): E87.1 - HYPO-OSMOLALITY AND HYPONATREMIA SNOMED Code(s): 79701717 Comment: Chronic secondary to cirrhosis. Will continue to monitor Na level. (5) DVT prophylaxis Current Visit: Yes Status: Acute Code(s): UHD8117 - SNOMED Code(s): 390613666 Comment: Resume eliquis (6) Full code status Current Visit: Yes Status: Acute Code(s): Z78.9 - OTHER SPECIFIED HEALTH STATUS SNOMED Code(s): 295450400 Status and Disposition: .
[2018-05-26] MEDS: Insulin GLARGINE(*) 1 UNITS UNIT SUBCUT SCH (21:37)
[2018-05-26] MEDS: cefTRIAXone(*) 2 GM in NS 0.9% 100 ML* 100 ML IVPB SCH (23:47)
[2018-05-27] MEDS: metroNIDAZOLE IV 500 MG/100ML* 500 MG/100 ML BAG IVPB SCH ×3 (00:59→17:21)
[2018-05-27 08:24] LABS: Hematocrit 27 % (35-47); Hemoglobin 9.6 g/dl (12.0-16.0); Mean Corpuscular HGB Conc 35 g/dl (31-36); Mean Corpuscular Hemoglobin 35 pg (27-31); Mean Corpuscular Volume 101 fL (80-97); Mean Platelet Volume 7.2 um3 (7.4-10.4); Platelet Count 114 10^3/ul (150-450); Red Blood Count 2.71 10^6/ul (4.00-5.40); Red Cell Distribution Width 16 % (10.5-15); White Blood Count 15.6 10^3/ul (3.5-10.8)
[2018-05-27] MEDS: traMADol TAB* 50 MG PO PRN ×3 (08:29→20:47)
[2018-05-27] MEDS: Apixaban* 2.5 MG TAB PO SCH ×2 (08:32→20:46)
[2018-05-27] MEDS: Furosemide TAB* 20 MG PO SCH (08:32)
[2018-05-27] MEDS: Spironolactone TAB* 25 MG PO SCH (08:32)
[2018-05-27] MEDS: Lactulose* 15 ML UDC PO SCH ×2 (08:32→21:14)
[2018-05-27] MEDS: Insulin LISPRO* 1 UNITS UNIT SUBCUT SCH ×9 (08:33→21:44)
[2018-05-27 08:35] LABS: EGFR Non-African American 83.2 (>60)
[2018-05-27 09:00] LABS: ABS Basophils 0.1 10^3/ul (0-0.2); ABS Eosinophils 0 10^3/ul (0-0.6); ABS Lymphocytes 1.4 10^3/ul (1.0-4.8); ABS Neutrophils 12.1 10^3/ul (1.5-7.7); ABS Nucleated RBC 0 10^3/ul; Eosinophil % 0.2 % (0-6); Nucleated Red Blood Cells % 0
--- NOTE | 2018-05-27 09:13 | PN ---
Subjective Date of Service: 05/27/18 Interval History: Pt is feeling poorly this am. She states she is having more abdominal pain today than yesterday but she thinks it has been extra long since she last received a dose of tramadol. She did not have any bowel movements yesterday. She has not been passing much gas. She states she feels more bloated now than she did yesterday. Family History: Unchanged from Admission Social History: Unchanged from Admission Past Medical History: Unchanged from Admission Objective Active Medications: Apixaban (Eliquis) 2.5 mg PO BID [facility] Last Admin: 05/27/18 08:32 Dose: 2.5 mg Dextrose (D50w Syringe 50 Ml*) 12.5 gm IV PUSH .FOR FS < 60 - SS PRN PRN Reason: FS < 60 Furosemide (Lasix Tab*) 20 mg PO DAILY [facility] Last Admin: 05/27/18 08:32 Dose: 20 mg Metronidazole/Sodium Chloride (Flagyl 500 Mg Ivpb*) 500 mg in 100 mls @ 100 mls /hr IVPB Q8H [facility] Last Admin: 05/27/18 08:34 Dose: 100 mls/hr Ceftriaxone Sodium 2 gm/ (Sodium Chloride) 100 mls @ 200 mls/hr IVPB Q24H [facility] Last Admin: 05/26/18 23:47 Dose: 200 mls/hr Insulin Glargine (Lantus(*)) 18 units SUBCUT Q24H [facility] Insulin Human Lispro (Humalog*) 0 units SUBCUT ACHS [facility]; Protocol Last Admin: 05/27/18 08:33 Dose: 5 units Insulin Human Lispro (Humalog*) 8 units SUBCUT AC [facility] Last Admin: 05/27/18 08:33 Dose: 8 units Lactulose (Lactulose*) 15 ml PO BID [facility] Last Admin: 05/27/18 08:32 Dose: 15 ml Ondansetron HCl (Zofran Inj*) 4 mg IV Q6H PRN PRN Reason: NAUSEA Spironolactone (Aldactone Tab*) 25 mg PO DAILY [facility] Last Admin: 05/27/18 08:32 Dose: 25 mg Tramadol HCl (Ultram*) 25 mg PO Q6H PRN PRN Reason: PAIN Last Admin: 05/27/18 08:29 Dose: 25 mg Vital Signs - 8 hr 05/27/18 05/27/18 05/27/18 01:45 02:24 07:31 Temperature 98.5 F 99.0 F Pulse Rate 108 109 Respiratory 30 34 16 Rate Blood Pressure 93/43 98/72 (mmHg) O2 Sat by Pulse 95 97 Oximetry 05/27/18 05/27/18 08:29 08:47 Temperature Pulse Rate Respiratory 20 20 Rate Blood Pressure (mmHg) O2 Sat by Pulse Oximetry Oxygen Devices in Use Now: None Appearance: Middle aged ill appearing female lying in bed, NAD Eyes: - - icteric sclera Ears/Nose/Mouth/Throat: Mucous Membranes Moist Respiratory: Symmetrical Chest Expansion and Respiratory Effort, Clear to Auscultation - diminished breath sounds in all lung liz Cardiovascular: RRR, - - III/ systolic murmur, 1+ B/L LE edema Abdominal: - - BS+ soft, moderately distended, diffusely tender to minimal palpation Extremities: No Clubbing, Cyanosis Skin: No Rash or Ulcers, - - jaundiced Neurological: Alert and Oriented x 3 Result Diagrams: 05/27/18 08:13 05/27/18 08:13 Additional Lab and Data: Lab Results 05/24/18 05/24/18 05/24/18 Range/Units 19:28 19:28 19:28 WBC 14.5 H (3.5-10.8) 10^3/ul RBC 3.18 L (4.00-5.40) 10^6/ul Hgb 11.3 L (12.0-16.0) g/dl Hct 32 L (35-47) % MCV 102 H (80-97) fL MCH 35 H (27-31) pg MCHC 35 (31-36) g/dl RDW 15 (10.5-15) % Plt Count 121 L (150-450) 10^3/ul MPV 8.3 (7.4-10.4) um3 Neut % (Auto) 79.2 (38-83) % Lymph % (Auto) 11.2 L (25-47) % [place] % (Auto) 8.9 H (0-7) % Eos % (Auto) 0.1 (0-6) % Baso % (Auto) 0.6 (0-2) % Absolute Neuts (auto) 11.5 H (1.5-7.7) 10^3/ul Absolute Lymphs (auto) 1.6 (1.0-4.8) 10^3/ul Absolute Monos (auto) 1.3 H (0-0.8) 10^3/ul Absolute Eos (auto) 0 (0-0.6) 10^3/ul Absolute Basos (auto) 0.1 (0-0.2) 10^3/ul Absolute Nucleated RBC 0 10^3/ul Nucleated RBC % 0 Sodium 120 L (135-145) mmol/L Potassium 4.6 (3.5-5.0) mmol/L Chloride 84 L (101-111) mmol/L Carbon Dioxide 27 (22-32) mmol/L Anion Gap 9 (2-11) mmol/L BUN 15 (6-24) mg/dL Creatinine 0.89 (0.51-0.95) mg/dL Est GFR ( Amer) 78.8 (>60) Est GFR (Non-Af Amer) 65.1 (>60) BUN/Creatinine Ratio 16.9 (8-20) Glucose 488 H (70-100) mg/dL Lactic Acid 3.3 H* (0.5-2.0) mmol/L Calcium 10.5 H (8.6-10.3) mg/dL Total Bilirubin 8.20 H (0.2-1.0) mg/dL AST 20 (13-39) U/L ALT 11 (7-52) U/L Alkaline Phosphatase 105 H (34-104) U/L C-Reactive Protein 109.31 H (<8.01) mg/L Total Protein 6.1 L (6.4-8.9) g/dL Albumin 2.6 L (3.2-5.2) g/dL Globulin 3.5 (2-4) g/dL Albumin/Globulin Ratio 0.7 L (1-3) Lipase < 10 L (11.0-82.0) U/L Microbiology and Other Data: Microbiology 05/25/18 11:59 Gram Stain - Final Body Fluid Diagnostic Imaging: Patient Name: ROXANA GUADALUPE Medical Record#: [id number] Ordering Physician: Emanuel Marquez MD Acct.#: [id number] : 1960 Age: 57 Sex: F Location: EMERGENCY DEPARTMENT Exam Date: 05/24/182053 ADM Status: REG ER Order Information: US GALL BLADDER Accession Number: [id number] CPT: 02331 EXAM: US Abdomen Limited, Right Upper Quadrant CLINICAL HISTORY: 57 years old, female; Pain and signs and symptoms; Abdominal tenderness; Abdominal pain; Generalized; Additional info: Pain, stones on CT IMPRESSION: 1. Cholelithiasis without other findings of cholecystitis. 2. Complications of known cirrhosis including ascites and splenomegaly. <Electronically signed by Aayush Ferreira MD in [facility]> 05/24/182211 CT scan abdomen and pelvis with cholelithiasis and diffuse ascites. EKG Data: . Assess/Plan/Problems-Billing A 57 y/o female with complex PMHx including alcoholic liver cirrhosis, who presented to ED with abdominal pain, fever and jaundice. - Patient Problems (1) Abdominal pain Current Visit: Yes Status: Acute Code(s): R10.9 - UNSPECIFIED ABDOMINAL PAIN SNOMED Code(s): 77256130 Comment: Etiology is unclear. No clear evidence for SBP. Await culture of ascites but in meantime continue ceftriaxone and flagyl. Tap was bloody making cell count uninterpretable. Continue tramadol which pt states is controlling her pain. ? pain secondary to stretch of the abdominal muscles from ascites. Now with increasing WBC count and low grade temp I do question if she may have an infectious source. If pain remains greater today then it was yesterday will re-image. (2) Alcoholic cirrhosis of liver with ascites Current Visit: Yes Status: Acute Code(s): K70.31 - ALCOHOLIC CIRRHOSIS OF LIVER WITH ASCITES SNOMED Code(s): 290742654 Comment: Appreciate GI evaluation. Continue eliquis and spironolactone and lasix to start today but pt is tachycardic-? intravascular volume depletion vs infection as cause of tachycardia. Will continue to monitor. (3) UTI (urinary tract infection) Current Visit: Yes Status: Acute Comment: Pt with Klebsiella in urine. No c/ o dysuria but given her fragile state will treat for UTI. Continue ceftriaxone as above. (4) Diabetes mellitus Current Visit: Yes Status: Acute Code(s): E11.9 - TYPE 2 DIABETES MELLITUS WITHOUT COMPLICATIONS SNOMED Code(s): 50227375 Comment: Increase both lantus and lispro today. If sugars still up tomorrow, will continue to increase insulin regimen. (5) Hyponatremia Current Visit: Yes Status: Acute Code(s): E87.1 - HYPO-OSMOLALITY AND HYPONATREMIA SNOMED Code(s): 62830924 Comment: Na slightly worse today but in the same range as previous. Will continue to monitor. (6) DVT prophylaxis Current Visit: Yes Status: Acute Code(s): XNQ6346 - SNOMED Code(s): 251969509 Comment: brittany (7) Full code status Current Visit: Yes Status: Acute Code(s): Z78.9 - OTHER SPECIFIED HEALTH STATUS SNOMED Code(s): 700813847 Status and Disposition: .
[2018-05-27] MEDS ORDERED: cefTRIAXone(*) 2 GM in NS 0.9% 50 ML* 50 ML IVPB SCH ×2 (10:36→23:30)
--- NOTE | 2018-05-27 10:38 | RAD ---
Indication: Fever intermittent. Cough. History of asthma. Comparison: May 24, 2018 Technique: Upright AP 0913 hours Report: Moderate dependent RIGHT and small dependent LEFT pleural effusions with proportional basilar atelectasis new compared with the May 24, 2018 exam. Proportional basilar compressive atelectasis. Negative for pneumothorax. Negative for cardiomegaly. Unremarkable central pulmonary vasculature. IMPRESSION: #. New nonspecific moderate dependent RIGHT and small dependent LEFT pleural effusions with basilar atelectasis.
[2018-05-27] MEDS: Insulin GLARGINE(*) 1 UNITS UNIT SUBCUT SCH (21:44)
[2018-05-28] MEDS: metroNIDAZOLE IV 500 MG/100ML* 500 MG/100 ML BAG IVPB SCH ×2 (01:12→11:38)
[2018-05-28] MEDS: traMADol TAB* 50 MG PO PRN ×4 (02:52→22:05)
[2018-05-28 06:06] LABS: Hematocrit 27 % (35-47); Hemoglobin 9.6 g/dl (12.0-16.0); Mean Corpuscular HGB Conc 36 g/dl (31-36); Mean Corpuscular Hemoglobin 36 pg (27-31); Mean Corpuscular Volume 98 fL (80-97); Mean Platelet Volume 7.1 um3 (7.4-10.4); Platelet Count 132 10^3/ul (150-450); Red Cell Distribution Width 16 % (10.5-15); White Blood Count 20.4 10^3/ul (3.5-10.8)
[2018-05-28 06:26] LABS: EGFR Non-African American 95.3 (>60)
[2018-05-28] MEDS: Cefepime 1 GM in Dextrose(*) 1 GM/50 ML BAG IV SCH ×2 (07:40→20:28)
[2018-05-28] MEDS ORDERED: Vancomycin(*) 1,000 MG in NS 0.9% 250 ML* 250 ML IVPB ONE (08:00)
[2018-05-28] MEDS: Furosemide TAB* 20 MG PO SCH (08:46)
[2018-05-28] MEDS: Apixaban* 2.5 MG TAB PO SCH ×2 (08:46→21:30)
[2018-05-28] MEDS: Insulin LISPRO* 1 UNITS UNIT SUBCUT SCH ×7 (08:47→21:31)
[2018-05-28] MEDS: Spironolactone TAB* 25 MG PO SCH (08:48)
[2018-05-28] MEDS: Ondansetron INJ* 2 MG/ML VIAL IV PRN (10:09)
[2018-05-28] MEDS ORDERED: Vancomycin per Pharmacy* NOTE FOLLOW UP PRN (11:29)
[2018-05-28] MEDS: metroNIDAZOLE TAB* 250 MG PO SCH ×2 (11:40→21:29)
--- NOTE | 2018-05-28 12:07 | RAD ---
CLINICAL HISTORY: Abdominal pain and leukocytosis. Relevant medical history includes cirrhosis and portal vein thrombosis. COMPARISON: Most recent comparison CT examination is dated May 24, 2018 TECHNIQUE: Noncontrast CT examination of the abdomen and pelvis from the lung bases through the initial tuberosities. FINDINGS: VISUALIZED LUNG BASES: The visualized lung bases are grossly clear. There is no pleural effusion. There are small bibasilar pleural effusions and consolidation of the dependent-most lower lungs with air bronchograms. ABDOMEN AND PELVIS: Unless otherwise specified comparisons below reference the May 24, 2018 CT of the abdomen and pelvis. Evaluation of the solid organs and vasculature is limited without intravenous contrast. There is moderate to severe ascites that has increased since the most recent CT examination. The service of the liver is nodular consistent with the reported history of cirrhosis. The superior mesenteric vein is enlarged measuring 1.4 cm in diameter. In the right of midline peritoneal cavity there is a lobular soft tissue density measuring approximately 4.6 x 5.1 cm in greatest axial dimension (image 57). This density is questionably contiguous with enlarged serpiginous vessels in the posterior peritoneal cavity (for example axial image 45 and 53). The spleen, pancreas and adrenal glands are grossly normal in appearance. The gallbladder is enlarged measuring approximately 4.0 x 9 cm in the axial plane. A hypoattenuating 6 m focus in the dependent portion is consistent with a small stone. The kidneys are normal in appearance without focal mass, calcification or signs of hydronephrosis. The small and large bowel are not distended.The patient's normal appendix is identified in the right lower quadrant. The pelvic viscera is normal in appearance. The abdominal aorta and iliac arteries are normal in course and diameter. Degenerative changes of the lower thoracic and lumbar spine includes loss of intervertebral disc height there is a stable compression deformity involving the superior endplate of the L1 vertebral body. IMPRESSION: 1. Worsening large volume ascites since the May 24, 2018 CT examination. 2. Interval development of small pleural effusions and dependent lower lobe consolidation which could be atelectasis or pneumonia. 3. Appearance of the liver is consistent with the reported history of cirrhosis. Furthermore, the superior mesenteric vein is enlarged measuring 1.4 cm in diameter consistent with the patient's reported history of portal vein thrombosis. At the posterior right of midline peritoneal cavity there is a serpiginous density which is most likely varicose veins of the mesentery as a sequela of portal vein and/or superior mesenteric vein thrombosis. The appearance is similar to the November 27, 2016 CT examination when the relatively reduced ascites and edema better depicts this finding as varicose mesentery veins. Superior characterization would require contrast enhancement. 4. Enlarged gallbladder in the presence of at least one 6 mm gallstone. If the patient is exhibiting any clinical features of cholecystitis superior characterization can be made with right upper quadrant ultrasound.
[2018-05-28] MEDS: Vancomycin(*) 750 MG in NS 0.9% 250 ML* 250 ML IVPB SCH (16:04)
[2018-05-28] MEDS: Lactulose* 15 ML UDC PO SCH ×2 (16:12→21:28)
[2018-05-28] MEDS: Insulin GLARGINE(*) 1 UNITS UNIT SUBCUT SCH (21:32)
[2018-05-29] MEDS: Ondansetron INJ* 2 MG/ML VIAL IV PRN ×4 (00:05→17:57)
[2018-05-29] MEDS: Vancomycin(*) 750 MG in NS 0.9% 250 ML* 250 ML IVPB SCH ×2 (00:09→09:27)
[2018-05-29] MEDS: traMADol TAB* 50 MG PO PRN ×4 (04:00→22:42)
[2018-05-29] MEDS ORDERED: Vancomycin Trough Check NOTE FOLLOW UP ONE (07:30)
[2018-05-29] MEDS: Cefepime 1 GM in Dextrose(*) 1 GM/50 ML BAG IV SCH (07:37)
[2018-05-29] MEDS: Spironolactone TAB* 25 MG PO SCH (07:45)
[2018-05-29] MEDS: Insulin LISPRO* 1 UNITS UNIT SUBCUT SCH ×7 (07:48→21:15)
[2018-05-29] MEDS: Lactulose* 15 ML UDC PO SCH ×2 (07:49→21:00)
[2018-05-29] MEDS: Furosemide TAB* 20 MG PO SCH (07:49)
[2018-05-29] MEDS: metroNIDAZOLE TAB* 250 MG PO SCH (07:50)
[2018-05-29 08:56] LABS: Hematocrit 28 % (35-47); Hemoglobin 9.8 g/dl (12.0-16.0); Mean Corpuscular HGB Conc 35 g/dl (31-36); Mean Corpuscular Hemoglobin 35 pg (27-31); Mean Corpuscular Volume 99 fL (80-97); Mean Platelet Volume 7.1 um3 (7.4-10.4); Platelet Count 177 10^3/ul (150-450); Red Blood Count 2.84 10^6/ul (4.00-5.40); Red Cell Distribution Width 16 % (10.5-15); White Blood Count 22.6 10^3/ul (3.5-10.8)
[2018-05-29 09:04] LABS: EGFR Non-African American 63.5 (>60); EGFR Non-African American 64.3 (>60)
[2018-05-29] MEDS ORDERED: Furosemide IV* 10 MG/ML 2 ML VIAL (20 MG) IV ONE (10:03)
--- NOTE | 2018-05-29 10:37 | PN ---
Subjective Date of Service: 05/29/18 Interval History: Pt states she is feeling poorly. She states her legs are much more edematous now than they were even yesterday. She states her abdomen is also more bloated. She has the same pain in her abdomen. Family History: Unchanged from Admission Social History: Unchanged from Admission Past Medical History: Unchanged from Admission Objective Active Medications: Apixaban (Eliquis) 2.5 mg PO BID [facility] Last Admin: 05/28/18 21:30 Dose: 2.5 mg Dextrose (D50w Syringe 50 Ml*) 12.5 gm IV PUSH .FOR FS < 60 - SS PRN PRN Reason: FS < 60 Furosemide (Lasix Tab*) 20 mg PO DAILY [facility] Last Admin: 05/29/18 07:49 Dose: 20 mg Albumin Human (Albumin Human 25%*) 25 gm in 100 mls @ 1 mls/min IV ONCE ONE; Protocol Stop: 05/29/18 12:39 Insulin Glargine (Lantus(*)) 22 units SUBCUT Q24H [facility] Insulin Human Lispro (Humalog*) 0 units SUBCUT ACHS [facility]; Protocol Last Admin: 05/29/18 07:48 Dose: 3 units Insulin Human Lispro (Humalog*) 8 units SUBCUT AC [facility] Last Admin: 05/29/18 07:48 Dose: 8 units Lactulose (Lactulose*) 15 ml PO BID [facility] Last Admin: 05/29/18 07:49 Dose: 15 ml Ondansetron HCl (Zofran Inj*) 4 mg IV Q6H PRN PRN Reason: NAUSEA Last Admin: 05/29/18 06:18 Dose: 4 mg Simethicone (Mylicon Tab*) 80 mg PO Q6H PRN PRN Reason: bloating Spironolactone (Aldactone Tab*) 25 mg PO DAILY [facility] Last Admin: 05/29/18 07:45 Dose: 25 mg Tramadol HCl (Ultram*) 25 mg PO Q6H PRN PRN Reason: PAIN Last Admin: 05/29/18 09:47 Dose: 25 mg Vital Signs - 8 hr 05/29/18 05/29/18 05/29/18 02:58 04:00 09:46 Temperature 97.9 F Pulse Rate 104 Respiratory 18 17 16 Rate Blood Pressure 104/52 (mmHg) O2 Sat by Pulse 96 Oximetry 05/29/18 09:47 Temperature Pulse Rate Respiratory 16 Rate Blood Pressure (mmHg) O2 Sat by Pulse Oximetry Oxygen Devices in Use Now: None Appearance: Middle aged chronically ill appearing female lying in bed, NAD Eyes: - - +icteric sclera Ears/Nose/Mouth/Throat: Mucous Membranes Moist Respiratory: Symmetrical Chest Expansion and Respiratory Effort, Clear to Auscultation - anteriorly Cardiovascular: RRR, - - III/ systolic murmur, 3+ B/L LE edema Abdominal: - - BS+ soft, moderately distended, tender to palpation Extremities: No Clubbing, Cyanosis Skin: No Nodules or Sclerosis, - - jaundiced Neurological: Alert and Oriented x 3 - Nutrition: Malnutrition Diagnosis/Plan Malnutrition Assessment by Registered Dietitian: Malnutrition Assessment Clinical Characteristics Acute,Severe Malnutrition Assessment: - moderate temporal muscle wasting Criteria - intake of <50% EEE for > 5 days Malnutrition Assessment: 1. following up GI tolerance to diet; pt w/ Interventions nausea, abd pain, diarrhea 2. maintaining regular diet (despite DM) to encourage po intake 3. glycemic control w/insulin orders per MD 4. diet education as appropriate Malnutrition Assessment: Goals 1. Pt will tolerate po diet w/o exacerbation of GI s/sx. 2. Improved and adequate po intake to replete lean body mass and hydration w/o undesired wt loss. 3. Electrolytes will improve w/adequate hydration. 4. Adequate glycemic control per inpatient parameters w/ appropriate insulin regimen. Result Diagrams: 05/29/18 08:18 05/29/18 08:18 Additional Lab and Data: Lab Results 05/24/18 05/24/18 05/24/18 Range/Units 19:28 19:28 19:28 WBC 14.5 H (3.5-10.8) 10^3/ul RBC 3.18 L (4.00-5.40) 10^6/ul Hgb 11.3 L (12.0-16.0) g/dl Hct 32 L (35-47) % MCV 102 H (80-97) fL MCH 35 H (27-31) pg MCHC 35 (31-36) g/dl RDW 15 (10.5-15) % Plt Count 121 L (150-450) 10^3/ul MPV 8.3 (7.4-10.4) um3 Neut % (Auto) 79.2 (38-83) % Lymph % (Auto) 11.2 L (25-47) % [place] % (Auto) 8.9 H (0-7) % Eos % (Auto) 0.1 (0-6) % Baso % (Auto) 0.6 (0-2) % Absolute Neuts (auto) 11.5 H (1.5-7.7) 10^3/ul Absolute Lymphs (auto) 1.6 (1.0-4.8) 10^3/ul Absolute Monos (auto) 1.3 H (0-0.8) 10^3/ul Absolute Eos (auto) 0 (0-0.6) 10^3/ul Absolute Basos (auto) 0.1 (0-0.2) 10^3/ul Absolute Nucleated RBC 0 10^3/ul Nucleated RBC % 0 Sodium 120 L (135-145) mmol/L Potassium 4.6 (3.5-5.0) mmol/L Chloride 84 L (101-111) mmol/L Carbon Dioxide 27 (22-32) mmol/L Anion Gap 9 (2-11) mmol/L BUN 15 (6-24) mg/dL Creatinine 0.89 (0.51-0.95) mg/dL Est GFR ( Amer) 78.8 (>60) Est GFR (Non-Af Amer) 65.1 (>60) BUN/Creatinine Ratio 16.9 (8-20) Glucose 488 H (70-100) mg/dL Lactic Acid 3.3 H* (0.5-2.0) mmol/L Calcium 10.5 H (8.6-10.3) mg/dL Total Bilirubin 8.20 H (0.2-1.0) mg/dL AST 20 (13-39) U/L ALT 11 (7-52) U/L Alkaline Phosphatase 105 H (34-104) U/L C-Reactive Protein 109.31 H (<8.01) mg/L Total Protein 6.1 L (6.4-8.9) g/dL Albumin 2.6 L (3.2-5.2) g/dL Globulin 3.5 (2-4) g/dL Albumin/Globulin Ratio 0.7 L (1-3) Lipase < 10 L (11.0-82.0) U/L Microbiology and Other Data: Microbiology 05/25/18 11:59 Gram Stain - Final Body Fluid Diagnostic Imaging: Patient Name: ROXANA GUADALUPE Medical Record#: [id number] Ordering Physician: Emanuel Marquez MD Acct.#: [id number] : 1960 Age: 57 Sex: F Location: EMERGENCY DEPARTMENT Exam Date: 05/24/182053 ADM Status: REG ER Order Information: US GALL BLADDER Accession Number: [id number] CPT: 10043 EXAM: US Abdomen Limited, Right Upper Quadrant CLINICAL HISTORY: 57 years old, female; Pain and signs and symptoms; Abdominal tenderness; Abdominal pain; Generalized; Additional info: Pain, stones on CT IMPRESSION: 1. Cholelithiasis without other findings of cholecystitis. 2. Complications of known cirrhosis including ascites and splenomegaly. <Electronically signed by Aayush Ferreira MD in [place]> 05/24/182211 CT scan abdomen and pelvis with cholelithiasis and diffuse ascites. EKG Data: . Assess/Plan/Problems-Billing A 57 y/o female with complex PMHx including alcoholic liver cirrhosis, who presented to ED with abdominal pain, fever and jaundice. - Patient Problems (1) Abdominal pain Current Visit: Yes Status: Acute Code(s): R10.9 - UNSPECIFIED ABDOMINAL PAIN SNOMED Code(s): 18542115 Comment: Etiology is unclear-? secondary to stretch of muscles/skin from ascites. Peritoneal fluid negative for growth final. Continue prn tramadol. Stop IV Abx as no clear source of infection other than UTI for which she has already had 4 days of Abx despite no symptoms. She continues to have an increasing leukocytosis though again no signs of infection. Stop Abx and monitor for fever, worsened WBC count or symptoms. Consider ID consult tomorrow. (2) Alcoholic cirrhosis of liver with ascites Current Visit: Yes Status: Acute Code(s): K70.31 - ALCOHOLIC CIRRHOSIS OF LIVER WITH ASCITES SNOMED Code(s): 614295644 Comment: Continue eliquis, spironolactone and lasix-half home dose. Will give albumin and IV lasix this AM to see if we can augment and further fluid excretion. Pts condition is guarded. (3) UTI (urinary tract infection) Current Visit: Yes Status: Acute Comment: Pt with Klebsiella in urine. She has received 4 days of Abx therapy. Monitor for symptoms and if needed add back Abx but for now hold on Abx. (4) Diabetes mellitus Current Visit: Yes Status: Acute Code(s): E11.9 - TYPE 2 DIABETES MELLITUS WITHOUT COMPLICATIONS SNOMED Code(s): 24337659 Comment: Increase lantus today and monitor blood sugars. (5) Hyponatremia Current Visit: Yes Status: Acute Code(s): E87.1 - HYPO-OSMOLALITY AND HYPONATREMIA SNOMED Code(s): 03855748 Comment: Na worse again today. Will be giving lasix. Monitor for repsonse from that. Na level low secondary to cirrhosis. (6) DVT prophylaxis Current Visit: Yes Status: Acute Code(s): AZT7634 - SNOMED Code(s): 364404171 Comment: eliquis-pt has a h/o portal vein thrombosis. (7) Full code status Current Visit: Yes Status: Acute Code(s): Z78.9 - OTHER SPECIFIED HEALTH STATUS SNOMED Code(s): 956134753 Status and Disposition: .
--- NOTE | 2018-05-29 10:44 | PN ---
Subjective Date of Service: 05/28/18 Interval History: LATE ENTRY from 05/28/18: Pt states she is feeling no better. She continues to have pain if she does not take the tramadol on time. She has noticed her legs to be swollen more than they have been. Family History: Unchanged from Admission Social History: Unchanged from Admission Past Medical History: Unchanged from Admission Objective Active Medications: Apixaban (Eliquis) 2.5 mg PO BID [facility] Last Admin: 05/28/18 21:30 Dose: 2.5 mg Dextrose (D50w Syringe 50 Ml*) 12.5 gm IV PUSH .FOR FS < 60 - SS PRN PRN Reason: FS < 60 Furosemide (Lasix Tab*) 20 mg PO DAILY [facility] Last Admin: 05/29/18 07:49 Dose: 20 mg Albumin Human (Albumin Human 25%*) 25 gm in 100 mls @ 1 mls/min IV ONCE ONE; Protocol Stop: 05/29/18 12:39 Insulin Glargine (Lantus(*)) 22 units SUBCUT Q24H [facility] Insulin Human Lispro (Humalog*) 0 units SUBCUT ACHS [facility]; Protocol Last Admin: 05/29/18 07:48 Dose: 3 units Insulin Human Lispro (Humalog*) 8 units SUBCUT AC [facility] Last Admin: 05/29/18 07:48 Dose: 8 units Lactulose (Lactulose*) 15 ml PO BID [facility] Last Admin: 05/29/18 07:49 Dose: 15 ml Ondansetron HCl (Zofran Inj*) 4 mg IV Q6H PRN PRN Reason: NAUSEA Last Admin: 05/29/18 06:18 Dose: 4 mg Simethicone (Mylicon Tab*) 80 mg PO Q6H PRN PRN Reason: bloating Spironolactone (Aldactone Tab*) 25 mg PO DAILY [facility] Last Admin: 05/29/18 07:45 Dose: 25 mg Tramadol HCl (Ultram*) 25 mg PO Q6H PRN PRN Reason: PAIN Last Admin: 05/29/18 09:47 Dose: 25 mg Vital Signs - 8 hr 05/29/18 05/29/18 05/29/18 02:58 04:00 09:46 Temperature 97.9 F Pulse Rate 104 Respiratory 18 17 16 Rate Blood Pressure 104/52 (mmHg) O2 Sat by Pulse 96 Oximetry 05/29/18 09:47 Temperature Pulse Rate Respiratory 16 Rate Blood Pressure (mmHg) O2 Sat by Pulse Oximetry Oxygen Devices in Use Now: None Appearance: Middle aged chronically ill appearing female lying in bed, NAD Eyes: - - icteric sclera Ears/Nose/Mouth/Throat: Mucous Membranes Moist Respiratory: Symmetrical Chest Expansion and Respiratory Effort, Clear to Auscultation - anteriorly Cardiovascular: - - mildly tachycardic but regular, III/ systolic murmur, 1+ LE edema Abdominal: NL Sounds; No Tenderness; No Distention Extremities: No Clubbing, Cyanosis Skin: No Nodules or Sclerosis, - - jaundiced Neurological: Alert and Oriented x 3 - Nutrition: Malnutrition Diagnosis/Plan Malnutrition Assessment by Registered Dietitian: Malnutrition Assessment Clinical Characteristics Acute,Severe Malnutrition Assessment: - moderate temporal muscle wasting Criteria - intake of <50% EEE for > 5 days Malnutrition Assessment: 1. following up GI tolerance to diet; pt w/ Interventions nausea, abd pain, diarrhea 2. maintaining regular diet (despite DM) to encourage po intake 3. glycemic control w/insulin orders per MD 4. diet education as appropriate Malnutrition Assessment: Goals 1. Pt will tolerate po diet w/o exacerbation of GI s/sx. 2. Improved and adequate po intake to replete lean body mass and hydration w/o undesired wt loss. 3. Electrolytes will improve w/adequate hydration. 4. Adequate glycemic control per inpatient parameters w/ appropriate insulin regimen. Result Diagrams: 05/29/18 08:18 05/29/18 08:18 Additional Lab and Data: Lab Results 05/24/18 05/24/18 05/24/18 Range/Units 19:28 19:28 19:28 WBC 14.5 H (3.5-10.8) 10^3/ul RBC 3.18 L (4.00-5.40) 10^6/ul Hgb 11.3 L (12.0-16.0) g/dl Hct 32 L (35-47) % MCV 102 H (80-97) fL MCH 35 H (27-31) pg MCHC 35 (31-36) g/dl RDW 15 (10.5-15) % Plt Count 121 L (150-450) 10^3/ul MPV 8.3 (7.4-10.4) um3 Neut % (Auto) 79.2 (38-83) % Lymph % (Auto) 11.2 L (25-47) % [place] % (Auto) 8.9 H (0-7) % Eos % (Auto) 0.1 (0-6) % Baso % (Auto) 0.6 (0-2) % Absolute Neuts (auto) 11.5 H (1.5-7.7) 10^3/ul Absolute Lymphs (auto) 1.6 (1.0-4.8) 10^3/ul Absolute Monos (auto) 1.3 H (0-0.8) 10^3/ul Absolute Eos (auto) 0 (0-0.6) 10^3/ul Absolute Basos (auto) 0.1 (0-0.2) 10^3/ul Absolute Nucleated RBC 0 10^3/ul Nucleated RBC % 0 Sodium 120 L (135-145) mmol/L Potassium 4.6 (3.5-5.0) mmol/L Chloride 84 L (101-111) mmol/L Carbon Dioxide 27 (22-32) mmol/L Anion Gap 9 (2-11) mmol/L BUN 15 (6-24) mg/dL Creatinine 0.89 (0.51-0.95) mg/dL Est GFR ( Amer) 78.8 (>60) Est GFR (Non-Af Amer) 65.1 (>60) BUN/Creatinine Ratio 16.9 (8-20) Glucose 488 H (70-100) mg/dL Lactic Acid 3.3 H* (0.5-2.0) mmol/L Calcium 10.5 H (8.6-10.3) mg/dL Total Bilirubin 8.20 H (0.2-1.0) mg/dL AST 20 (13-39) U/L ALT 11 (7-52) U/L Alkaline Phosphatase 105 H (34-104) U/L C-Reactive Protein 109.31 H (<8.01) mg/L Total Protein 6.1 L (6.4-8.9) g/dL Albumin 2.6 L (3.2-5.2) g/dL Globulin 3.5 (2-4) g/dL Albumin/Globulin Ratio 0.7 L (1-3) Lipase < 10 L (11.0-82.0) U/L Microbiology and Other Data: Microbiology 05/25/18 11:59 Gram Stain - Final Body Fluid Diagnostic Imaging: Patient Name: ROXANA GUADALUPE Medical Record#: [id number] Ordering Physician: Emanuel Marquez MD Acct.#: [id number] : 1960 Age: 57 Sex: F Location: EMERGENCY DEPARTMENT Exam Date: 05/24/182053 ADM Status: REG ER Order Information: US GALL BLADDER Accession Number: [id number] CPT: 90419 EXAM: US Abdomen Limited, Right Upper Quadrant CLINICAL HISTORY: 57 years old, female; Pain and signs and symptoms; Abdominal tenderness; Abdominal pain; Generalized; Additional info: Pain, stones on CT IMPRESSION: 1. Cholelithiasis without other findings of cholecystitis. 2. Complications of known cirrhosis including ascites and splenomegaly. <Electronically signed by Aayush Ferreira MD in [facility]> 05/24/182211 CT scan abdomen and pelvis with cholelithiasis and diffuse ascites. EKG Data: . Assess/Plan/Problems-Billing A 57 y/o female with complex PMHx including alcoholic liver cirrhosis, who presented to ED with abdominal pain, fever and jaundice. - Patient Problems (1) Abdominal pain Current Visit: Yes Status: Acute Code(s): R10.9 - UNSPECIFIED ABDOMINAL PAIN SNOMED Code(s): 03417921 Comment: Etiology remains unclear. WBC count up further today. Will broaden Abx coverage and monitor symptoms/WBC count. No fever. No growth on the peritoneal fluid. Will get repeat CT with oral contrast to eval for an intraabdominal process. Continue tramatdol. (2) Alcoholic cirrhosis of liver with ascites Current Visit: Yes Status: Acute Code(s): K70.31 - ALCOHOLIC CIRRHOSIS OF LIVER WITH ASCITES SNOMED Code(s): 070866688 Comment: Continue eliquis, spironolactone and lasix-half home dose. (3) UTI (urinary tract infection) Current Visit: Yes Status: Acute Comment: Pt with Klebsiella in urine. Getting cefepime as I am broadening her coverage. (4) Diabetes mellitus Current Visit: Yes Status: Acute Code(s): E11.9 - TYPE 2 DIABETES MELLITUS WITHOUT COMPLICATIONS SNOMED Code(s): 82037684 Comment: Sugars will be monitored today and if tomorrow still up as high will adjust her insulin regimen. (5) Hyponatremia Current Visit: Yes Status: Acute Code(s): E87.1 - HYPO-OSMOLALITY AND HYPONATREMIA SNOMED Code(s): 57684541 Comment: Na worse again today. Continue to monitor. I do not want to give IVF as I believe she will just 3rd space the fluid. (6) DVT prophylaxis Current Visit: Yes Status: Acute Code(s): PLC0542 - SNOMED Code(s): 922841036 Comment: brittany-pt has a h/o portal vein thrombosis. (7) Full code status Current Visit: Yes Status: Acute Code(s): Z78.9 - OTHER SPECIFIED HEALTH STATUS SNOMED Code(s): 875273315 Status and Disposition: .
[2018-05-29] MEDS ORDERED: Albumin Human 25%* 25 GM/100 ML BTL IV ONE (11:00)
[2018-05-29] MEDS: Apixaban* 2.5 MG TAB PO SCH ×2 (12:54→22:43)
[2018-05-29] MEDS ORDERED: Insulin GLARGINE(*) 1 UNITS UNIT SUBCUT SCH (21:00)
[2018-05-30] MEDS: Ondansetron INJ* 2 MG/ML VIAL IV PRN ×4 (00:14→19:00)
[2018-05-30] MEDS: traMADol TAB* 50 MG PO PRN ×2 (04:58→12:45)
[2018-05-30 06:49] LABS: Hematocrit 25 % (35-47); Hemoglobin 9.2 g/dl (12.0-16.0); Mean Corpuscular HGB Conc 37 g/dl (31-36); Mean Corpuscular Hemoglobin 36 pg (27-31); Mean Corpuscular Volume 98 fL (80-97); Mean Platelet Volume 6.9 um3 (7.4-10.4); Platelet Count 135 10^3/ul (150-450); Red Blood Count 2.56 10^6/ul (4.00-5.40); Red Cell Distribution Width 16 % (10.5-15)
[2018-05-30 07:08] LABS: EGFR Non-African American 48.5 (>60)
[2018-05-30] MEDS: Lactulose* 15 ML UDC PO SCH ×2 (08:41→21:09)
[2018-05-30] MEDS: Furosemide TAB* 20 MG PO SCH (08:41)
[2018-05-30] MEDS: Apixaban* 2.5 MG TAB PO SCH ×2 (08:41→21:08)
[2018-05-30] MEDS: Insulin LISPRO* 1 UNITS UNIT SUBCUT SCH ×7 (08:41→21:13)
[2018-05-30] MEDS: Spironolactone TAB* 25 MG PO SCH (08:41)
--- NOTE | 2018-05-30 11:03 | PN ---
Subjective Date of Service: 05/30/18 Interval History: Pt is feeling the same as the last several days. She thinks her edema of her legs is better today than it was yesterday. She also feels the simethicone has helped with her abdominal distention. She had chest pain overnight but none now. Family History: Unchanged from Admission Social History: Unchanged from Admission Past Medical History: Unchanged from Admission Objective Active Medications: Apixaban (Eliquis) 2.5 mg PO BID [facility] Last Admin: 05/30/18 08:41 Dose: 2.5 mg Dextrose (D50w Syringe 50 Ml*) 12.5 gm IV PUSH .FOR FS < 60 - SS PRN PRN Reason: FS < 60 Furosemide (Lasix Tab*) 20 mg PO DAILY [facility] Last Admin: 05/30/18 08:41 Dose: 20 mg Insulin Glargine (Lantus(*)) 25 units SUBCUT Q24H [facility] Insulin Human Lispro (Humalog*) 0 units SUBCUT ACHS [facility]; Protocol Last Admin: 05/30/18 08:41 Dose: 2 units Insulin Human Lispro (Humalog*) 8 units SUBCUT AC [facility] Last Admin: 05/30/18 08:41 Dose: 8 units Lactulose (Lactulose*) 15 ml PO BID [facility] Last Admin: 05/30/18 08:41 Dose: 15 ml Ondansetron HCl (Zofran Inj*) 4 mg IV Q6H PRN PRN Reason: NAUSEA Last Admin: 05/30/18 06:14 Dose: 4 mg Simethicone (Mylicon Tab*) 80 mg PO Q6H PRN PRN Reason: bloating Spironolactone (Aldactone Tab*) 25 mg PO DAILY [facility] Last Admin: 05/30/18 08:41 Dose: 25 mg Tramadol HCl (Ultram*) 25 mg PO Q6H PRN PRN Reason: PAIN Last Admin: 05/30/18 04:58 Dose: 25 mg Vital Signs - 8 hr 05/30/18 05/30/18 05/30/18 03:11 04:58 08:00 Temperature 97.9 F Pulse Rate 100 Respiratory 18 16 26 Rate Blood Pressure 97/60 (mmHg) O2 Sat by Pulse 95 Oximetry 05/30/18 05/30/18 08:08 09:01 Temperature 98.1 F Pulse Rate 102 Respiratory 16 26 Rate Blood Pressure 101/61 (mmHg) O2 Sat by Pulse 100 Oximetry Oxygen Devices in Use Now: Nasal Cannula Appearance: Middle aged ill appearing female lying in bed, NAD Eyes: - - icteric sclera Ears/Nose/Mouth/Throat: Mucous Membranes Moist Respiratory: Symmetrical Chest Expansion and Respiratory Effort, Clear to Auscultation - anteriorly Cardiovascular: - - mildly tachycardic, regular, III/ systolic murmur, 3+ B/L LE edema (no improvement from yesterday) Abdominal: - - BS hyperactive, soft, NT, moderately distended-slightly more today than yesterday Extremities: No Clubbing, Cyanosis Skin: No Rash or Ulcers, - - jaundiced Neurological: Alert and Oriented x 3 - appears to be A&O however did not remeber talking with GI doctor several days ago - Nutrition: Malnutrition Diagnosis/Plan Malnutrition Assessment by Registered Dietitian: Malnutrition Assessment Clinical Characteristics Acute,Severe Malnutrition Assessment: - moderate temporal muscle wasting Criteria - intake of <50% EEE for > 5 days Malnutrition Assessment: 1. following up GI tolerance to diet; pt w/ Interventions nausea, abd pain, diarrhea 2. maintaining regular diet (despite DM) to encourage po intake 3. glycemic control w/insulin orders per MD 4. diet education as appropriate Malnutrition Assessment: Goals 1. Pt will tolerate po diet w/o exacerbation of GI s/sx. 2. Improved and adequate po intake to replete lean body mass and hydration w/o undesired wt loss. 3. Electrolytes will improve w/adequate hydration. 4. Adequate glycemic control per inpatient parameters w/ appropriate insulin regimen. Result Diagrams: 05/30/18 06:35 05/30/18 06:35 Additional Lab and Data: Lab Results 05/24/18 05/24/18 05/24/18 Range/Units 19:28 19:28 19:28 WBC 14.5 H (3.5-10.8) 10^3/ul RBC 3.18 L (4.00-5.40) 10^6/ul Hgb 11.3 L (12.0-16.0) g/dl Hct 32 L (35-47) % MCV 102 H (80-97) fL MCH 35 H (27-31) pg MCHC 35 (31-36) g/dl RDW 15 (10.5-15) % Plt Count 121 L (150-450) 10^3/ul MPV 8.3 (7.4-10.4) um3 Neut % (Auto) 79.2 (38-83) % Lymph % (Auto) 11.2 L (25-47) % [place] % (Auto) 8.9 H (0-7) % Eos % (Auto) 0.1 (0-6) % Baso % (Auto) 0.6 (0-2) % Absolute Neuts (auto) 11.5 H (1.5-7.7) 10^3/ul Absolute Lymphs (auto) 1.6 (1.0-4.8) 10^3/ul Absolute Monos (auto) 1.3 H (0-0.8) 10^3/ul Absolute Eos (auto) 0 (0-0.6) 10^3/ul Absolute Basos (auto) 0.1 (0-0.2) 10^3/ul Absolute Nucleated RBC 0 10^3/ul Nucleated RBC % 0 Sodium 120 L (135-145) mmol/L Potassium 4.6 (3.5-5.0) mmol/L Chloride 84 L (101-111) mmol/L Carbon Dioxide 27 (22-32) mmol/L Anion Gap 9 (2-11) mmol/L BUN 15 (6-24) mg/dL Creatinine 0.89 (0.51-0.95) mg/dL Est GFR ( Amer) 78.8 (>60) Est GFR (Non-Af Amer) 65.1 (>60) BUN/Creatinine Ratio 16.9 (8-20) Glucose 488 H (70-100) mg/dL Lactic Acid 3.3 H* (0.5-2.0) mmol/L Calcium 10.5 H (8.6-10.3) mg/dL Total Bilirubin 8.20 H (0.2-1.0) mg/dL AST 20 (13-39) U/L ALT 11 (7-52) U/L Alkaline Phosphatase 105 H (34-104) U/L C-Reactive Protein 109.31 H (<8.01) mg/L Total Protein 6.1 L (6.4-8.9) g/dL Albumin 2.6 L (3.2-5.2) g/dL Globulin 3.5 (2-4) g/dL Albumin/Globulin Ratio 0.7 L (1-3) Lipase < 10 L (11.0-82.0) U/L Microbiology and Other Data: Microbiology 05/25/18 11:59 Gram Stain - Final Body Fluid Diagnostic Imaging: Patient Name: ROXANA GUADALUPE Medical Record#: [id number] Ordering Physician: Emanuel Marquez MD Acct.#: [id number] : 1960 Age: 57 Sex: F Location: EMERGENCY DEPARTMENT Exam Date: 05/24/182053 ADM Status: REG ER Order Information: US GALL BLADDER Accession Number: [id number] CPT: 31542 EXAM: US Abdomen Limited, Right Upper Quadrant CLINICAL HISTORY: 57 years old, female; Pain and signs and symptoms; Abdominal tenderness; Abdominal pain; Generalized; Additional info: Pain, stones on CT IMPRESSION: 1. Cholelithiasis without other findings of cholecystitis. 2. Complications of known cirrhosis including ascites and splenomegaly. <Electronically signed by Aayush Ferreira MD in OV> 05/24/182211 CT scan abdomen and pelvis with cholelithiasis and diffuse ascites. EKG Data: . Assess/Plan/Problems-Billing A 57 y/o female with complex PMHx including alcoholic liver cirrhosis, who presented to ED with abdominal pain, fever and jaundice. - Patient Problems (1) Abdominal pain Current Visit: Yes Status: Acute Code(s): R10.9 - UNSPECIFIED ABDOMINAL PAIN SNOMED Code(s): 51642418 Comment: No clear cause found. Likely just secondary to ascites and stretch. Pain is controlled with tramadol q6hr. (2) Leukocytosis Current Visit: Yes Status: Acute Code(s): D72.829 - ELEVATED WHITE BLOOD CELL COUNT, UNSPECIFIED SNOMED Code(s): 879681701 Comment: WBC count is improved some today despite stopping Abx yesterday. Will monitor for signs of infection. (3) Alcoholic cirrhosis of liver with ascites Current Visit: Yes Status: Acute Code(s): K70.31 - ALCOHOLIC CIRRHOSIS OF LIVER WITH ASCITES SNOMED Code(s): 126474509 Comment: Continue eliquis, spironolactone and lasix-half home dose. IV lasix given yesterday without great response. Now with slight bump in creatinine. Will need to monitor this closely. Unclear when the patient will be considered stable enough for d/c home. She generally is doing poorly and had no significant improvement in her overall condition. (4) UTI (urinary tract infection) Current Visit: Yes Status: Acute Comment: Pt with Klebsiella in urine. Tx done for now-monitor for symptoms. (5) Diabetes mellitus Current Visit: Yes Status: Acute Code(s): E11.9 - TYPE 2 DIABETES MELLITUS WITHOUT COMPLICATIONS SNOMED Code(s): 55280278 Comment: Sugars still up. Increase lantus to 25 units SQ daily. (6) Hyponatremia Current Visit: Yes Status: Acute Code(s): E87.1 - HYPO-OSMOLALITY AND HYPONATREMIA SNOMED Code(s): 82668276 Comment: Na not impoving despite diuresis. Will continue to monitor. I think she is total body fluid overloaded but intravascularly dry. (7) DVT prophylaxis Current Visit: Yes Status: Acute Code(s): QWC3273 - SNOMED Code(s): 715130195 Comment: antoniettakenandamon-pt has a h/o portal vein thrombosis dx in 2017. (8) Full code status Current Visit: Yes Status: Acute Code(s): Z78.9 - OTHER SPECIFIED HEALTH STATUS SNOMED Code(s): 902479767 Status and Disposition: .
--- NOTE | 2018-05-30 16:18 | PN ---
Progress Note - Progress Note Date of Service: 05/30/18 Note: Called emergently to the patient's room at about 1425 for a CAT call. Reportedly the patient and her were talking with a CAP case preparer and liner and another nurse when she suddenly stopped talking and was witnessed to have fluttering of her eyes and lip smacking. Upon my arrival the patient appeared to be sleeping however she would not respond to any stimulation other than strong sternal rub and my trying to open her eyelids where she would clamp down and not let me open them. This is not the patient's baseline. Her has not noticed anything different today from previous. They were talking about possibly being evaluated in [place] for liver transplant. Neurology to consult. EEG ordered.
[2018-05-30] MEDS: oxyCODONE TAB* 5 MG TAB PO PRN (19:00)
[2018-05-30] MEDS: Insulin GLARGINE(*) 1 UNITS UNIT SUBCUT SCH (21:12)
--- NOTE | 2018-05-30 22:16 | CONS ---
NEUROLOGY CONSULTATION REPORT: DATE OF CONSULT: 05/30/18 CONSULTING PROVIDER: Dr. Tanner. REASON FOR CONSULT: Seizures. CHIEF COMPLAINT: Seizures. HISTORY OF PRESENT ILLNESS: Ms. Betts is a 57-year-old right-handed female, who has history of alcoholism and liver cirrhosis, who presented to [facility] for abdominal pain. She has been admitted and treated for possible sepsis. She was given Ultram for pain control as well as has received cefepime 2 days ago. She received Ultram today at 12:45 p.m. The patient had an episode that required acute emergent assessment by the clinical assessment team. According to the beside nurse, the patient had a sudden onset of confusion, unresponsive state, and involuntary horizontal nystagmus seen in both eyes lasting for less than 1 minute. The patient was not foaming by the mouth, did not have any urinary or bowel incontinence. She did not bite her tongue. There was no evidence of convulsion, but there is concern that she was difficult to awaken. Her vitals at that time were temperature of 98, pulse of 108, respiratory rate of 24, and blood pressure of 141/84. Her oxygen saturation was 95%. The response team arrived at 1435, but the symptoms started approximately 10 minutes prior to their arrival. The patient was not treated with any medication and after 10-15 minutes she slowly came back to her normal cognitive status. Currently, the patient is back to her baseline and is conversing without any limitation. She denied any headaches, visual disturbance , focal weakness, or paresthesias. She does report a history of 1 seizure in 2012 after she was having shrimp. The patient stated that she has allergies to LOBSTER and the shrimp was either cooked or when manufactured had some close contract with lobster and thinks this is the reason why she may have had a seizure. That seizure was reported to involve complete loss of awareness as well as generalized convulsion. She did not require hospitalization. There was a question of alcohol withdrawal that may have induced that seizure, but this is unclear. The patient was never started on antiseizure medications. She denied any history of meningitis or encephalitis. She denied any history of brain or spinal cord surgeries. She denied any family history of epilepsy or history of febrile seizures. PAST MEDICAL HISTORY: Liver cirrhosis; esophageal varices; portal vein thrombosis, on anticoagulation. She is currently taking Eliquis. PAST SURGICAL HISTORY: She denied any surgical history. MEDICATIONS: 1. Ultram 25 mg p.o. every 6 hours p.r.n. for pain. 2. Spironolactone 25 mg p.o. daily. 3. Mylicon 80 mg every 6 hours p.r.n. 4. Ondansetron 4 mg IV every 6 hours p.r.n. 5. Lactulose 15 mL p.o. twice daily. 6. Insulin. 7. Furosemide 20 mg p.o. daily. 8. Apixaban 2.5 mg p.o. twice daily. ALLERGIES: IV CONTRAST, PEANUTS, and SHRIMP. FAMILY HISTORY: She was adopted. She does not know if there is a family history of seizures or stroke. SOCIAL HISTORY: The patient lives with her . She has not consumed alcohol for 2 years. She denied tobacco use. REVIEW OF SYSTEMS: A 14-point review of systems was obtained and otherwise negative except for what was mentioned in the HPI. PHYSICAL EXAM: Vitals: Temperature of 98.1, pulse of 102, respiratory rate 26 , oxygen saturation of 100% and she is on 2 L nasal cannula, blood pressure 101/ 61. General: Chronically ill-appearing, frail female, in no acute distress. She is resting comfortably. Head is atraumatic and normocephalic without any obvious abnormality. Eyes: Positive for scleral icterus bilaterally. No evidence of conjunctival injection. Neck is supple and symmetrical. No lymphadenopathy. Lungs are clear to auscultation bilaterally with nonlabored breathing. Cardiovascular: Regular rate and rhythm. Normal S1, S2. Extremities: Normal range of motion with no cyanosis. She does have 2-3+ pitting edema. Skin: No skin lesions or laceration. Psych: Affect is broad and normal mood. Neurological Examination: Mental Status: The patient is awake, alert, and oriented to person, place, time, and general circumstances. She does seem slightly fatigued and drowsy, but able to answer questions appropriately. I did not notice any trouble with naming, repetition, or comprehending. She actually followed 3-step commands. Cranial Nerves: Normal confrontation testing. Pupils are mid range and reactive to light. Normal consensual response. Sensation is intact on the forehead, cheeks, and jaw region bilaterally. She has no facial droop or facial asymmetry. She is able to hear throughout the history process. Symmetrical palatal elevation. There is normal strength against resistance. Tongue is symmetrical and midline with no evidence of atrophy. Motor: No abnormal movements. No pronator drift. She is able to move all 4 extremities symmetrically to command. Reflexes: 1+ throughout the upper and lower extremities and 0 at the ankles bilaterally. Plantar flexor bilaterally. Sensation is intact to light touch and pinprick throughout. Coordination: Normal [id number]. Gait was not assessed due to the patient's mild postictal state. DIAGNOSTIC STUDIES/LAB DATA: Laboratory findings from 05/30/18; WBC of 16,000, hemoglobin 9.2, hematocrit of 25. Sodium of 122, potassium of 3.7, chloride of 94, creatinine 1.15. Ammonia 70. CT head images were not obtained. ASSESSMENT AND RECOMMENDATIONS: Ms. Nicole Betts is a 57-year-old female with history of liver cirrhosis and portal vein thrombosis, who has history of 1 episode of seizure, who had a seizure today after tramadol use. I suspect this is tramadol- induced seizure because the patient had a witnessed what the nurse staff described as seizure-like activity with generalized symptoms and postictal confusion 1-1/2 hours to 2 hours after administrating tramadol. In addition, the patient had received cefepime 2 days ago, which can also play a role in lowering the seizure threshold. Other potential causes for seizures include hyperammonemia as well as hyponatremia; however, the metabolic disturbance seems to be improving over the last 24 hours and therefore should not be causing the symptoms at this time and would have caused seizures on presentation. I do not recommend any antiseizure medications at this time. I do recommend discontinuing tramadol and choosing an alternative pain control medication, narcotic preferably since the patient cannot take Tylenol. Please add tramadol to the patient's allergy list. I reviewed the patient's EEG and there seems to be significant amount of slowing diffusely, but more prominently in the right hemisphere. We should at least obtain a CT of the head without contrast to rule out any intracranial abnormality, subdural hematoma, or intraparenchymal hemorrhage in the setting of anticoagulation therapy. I do not think this is the case here, but since the patient is on anticoagulation therapy and has liver failure, she is at risk. This does not have to be urgently done and can be done within the next 24 hours unless the patient has another episode of seizure. We discussed seizure precautions. She does have pads around the bed. Continue neuro checks every 4 hours. Defer treatment for the metabolic derangement to the primary team. TIME SPENT: I spent a total of 70 minutes and greater than 50% of that was spent directly reviewing the medical chart, obtaining history, examining the patient, education and counseling, and discussing the treatment plan as mentioned above. I discussed the case with Dr. Tanner. I will continue to follow. [id number]/[facility] #: [id number] [facility]
--- NOTE | 2018-05-30 23:24 | EEG ---
ELECTROENCEPHALOGRAPHY: DATE OF STUDY: 05/30/18 - ROOM #[id number] DATE OF READ: 05/30/18 TIME OF RECORDIN:15 p.m. to 15:40 p.m. MEDICATIONS: 1. Tramadol. 2. Insulin. 3. Apixaban. 4. Lantus. 5. Lactulose. 6. Furosemide. 7. Spironolactone. 8. Ondansetron. 9. Simethicone. CLINICAL PROBLEM: Ms. Betts is a 57-year-old female with a history of liver failure who had an episode of altered sensorium with abnormal eye movements followed by confusion. This EEG was obtained to evaluate for epileptiform abnormalities or electrographic seizures. CLINICAL STATE: Awaking and drowsy. REPORT: The background had retained organization and discernible anterior- posterior voltage and frequency gradients. There was a slow and nonsustained posterior dominant rhythm of 7 Hz. There were diffuse, moderate amplitude slowing between 4 to 6 Hz delta and theta frequencies. There seems to be more prominent slowing over the right hemisphere maximally seen in the right temporal , parietal, and occipital regions. There were no clear epileptiform abnormalities. Attenuation of the posterior dominant rhythm accompanied drowsiness. There were no sleep sleep spindles or K-complexes to suggest stage 2 sleep. Hyperventilation and photic stimulation were not performed. EKG showed sinus tachycardia with a rate of 110. Throughout the recording, there were no electrographic seizures. CLINICAL IMPRESSION: This is an abnormal awake and drowsy EEG due to diffuse slowing of the background, poorly sustained posterior dominant rhythm, and intermittent slowing that is asymmetric involving the right parietal, temporal, and occipital regions to a greater extent. These findings are suggestive of mild to moderate diffuse encephalopathy which can be seen in the setting of toxic metabolic disturbance, sedation, or a postictal state. The greatest slowing in the right hemisphere suggest a focal neuronal dysfunction in that region or postictal slowing. Clinical correlation is recommended. [id number]/[facility] #: [id number] [facility]
[2018-05-31] MEDS: Ondansetron INJ* 2 MG/ML VIAL IV PRN ×3 (01:04→14:57)
[2018-05-31] MEDS: oxyCODONE TAB* 5 MG TAB PO PRN ×4 (01:04→19:38)
[2018-05-31] MEDS ORDERED: Vancomycin(*) 1,000 MG in NS 0.9% 250 ML* 250 ML IVPB ONE (07:00)
[2018-05-31 07:18] LABS: Hematocrit 25 % (35-47); Mean Corpuscular HGB Conc 36 g/dl (31-36); Mean Corpuscular Hemoglobin 35 pg (27-31); Mean Corpuscular Volume 98 fL (80-97); Mean Platelet Volume 6.8 um3 (7.4-10.4); Platelet Count 165 10^3/ul (150-450); Red Blood Count 2.56 10^6/ul (4.00-5.40); Red Cell Distribution Width 16 % (10.5-15); White Blood Count 19.8 10^3/ul (3.5-10.8)
[2018-05-31 07:38] LABS: EGFR Non-African American 39.6 (>60)
[2018-05-31] MEDS: Simethicone TAB* 80 MG TAB.CHEW PO PRN (07:48)
[2018-05-31] MEDS: Spironolactone TAB* 25 MG PO SCH (07:48)
[2018-05-31] MEDS: Furosemide TAB* 20 MG PO SCH (07:48)
[2018-05-31] MEDS: Apixaban* 2.5 MG TAB PO SCH ×2 (07:48→21:49)
[2018-05-31] MEDS: Lactulose* 15 ML UDC PO SCH ×2 (07:48→21:50)
[2018-05-31] MEDS ORDERED: Vancomycin per Pharmacy* NOTE FOLLOW UP PRN (08:15)
[2018-05-31] MEDS: Insulin LISPRO* 1 UNITS UNIT SUBCUT SCH ×7 (09:12→21:34)
[2018-05-31] MEDS ORDERED: Insulin LISPRO* 1 UNITS UNIT SUBCUT ONE (12:11)
[2018-05-31] MEDS ORDERED: Dextrose 50% Syringe 50 ML* 25 GM/50 ML SYRINGE IV PUSH PRN (12:11)
[2018-05-31] MEDS ORDERED: Ondansetron INJ* 2 MG/ML VIAL IV ONE (12:23)
--- NOTE | 2018-05-31 17:26 | PN ---
Subjective Date of Service: 05/31/18 Interval History: abdominal discomfort comes and goes. No BM today. INR up to 3.81, OUTSIDE SALES MANAGER to 1.37. TBili 9.40. Na 124. WBC 19.8 MELD 36 Given the above information, pt and have decided to pursue liver transplant evaluation at [facility]. Transfer center called but [facility] was not accepting transfers for lack of beds. Family History: Unchanged from Admission Social History: Unchanged from Admission Past Medical History: Unchanged from Admission Objective Active Medications: Apixaban (Eliquis) 2.5 mg PO BID [facility] Last Admin: 05/31/18 07:48 Dose: 2.5 mg Dextrose (D50w Syringe 50 Ml*) 12.5 gm IV PUSH .FOR FS < 60 - SS PRN PRN Reason: FS < 60 Furosemide (Lasix Tab*) 20 mg PO DAILY [facility] Last Admin: 05/31/18 07:48 Dose: 20 mg Insulin Glargine (Lantus(*)) 25 units SUBCUT Q24H [facility] Last Admin: 05/30/18 21:12 Dose: 25 unit Insulin Human Lispro (Humalog*) 0 units SUBCUT [facility]; Protocol Last Admin: 05/31/18 17:17 Dose: Not Given Insulin Human Lispro (Humalog*) 8 units SUBCUT AC [facility] Last Admin: 05/31/18 12:12 Dose: Not Given Lactulose (Lactulose*) 15 ml PO BID [facility] Last Admin: 05/31/18 07:48 Dose: 15 ml Ondansetron HCl (Zofran Inj*) 4 mg IV Q6H PRN PRN Reason: NAUSEA Last Admin: 05/31/18 14:57 Dose: 4 mg Oxycodone HCl (Roxycodone Tab*) 2.5 mg PO Q4H PRN PRN Reason: PAIN Last Admin: 05/31/18 12:53 Dose: 2.5 mg Simethicone (Mylicon Tab*) 80 mg PO Q6H PRN PRN Reason: bloating Last Admin: 05/31/18 07:48 Dose: 80 mg Spironolactone (Aldactone Tab*) 25 mg PO DAILY [facility] Last Admin: 05/31/18 07:48 Dose: 25 mg Vital Signs - 8 hr 05/31/18 05/31/18 05/31/18 11:25 12:14 12:53 Temperature 98.5 F Pulse Rate 121 Respiratory 15 16 24 Rate Blood Pressure 106/61 (mmHg) O2 Sat by Pulse 92 Oximetry 05/31/18 05/31/18 14:30 17:15 Temperature 98.1 F Pulse Rate 105 Respiratory 12 Rate Blood Pressure 104/61 (mmHg) O2 Sat by Pulse 99 Oximetry Oxygen Devices in Use Now: Nasal Cannula Appearance: Chornically ill appearing, jaundiced. Eyes: - - scelral icterus present. Ears/Nose/Mouth/Throat: Mucous Membranes Moist Respiratory: Symmetrical Chest Expansion and Respiratory Effort, Clear to Auscultation Cardiovascular: - - RRR, RAJI, no rubs or gallops. Abdominal: - - suprapubic and LLQ, RLQ, RUQ mild tenderness Extremities: - - 3+ pitting edema in LE. Skin: No Rash or Ulcers Neurological: Alert and Oriented x 3, - - no asterixis. Nutrition: Taking PO's - Nutrition: Malnutrition Diagnosis/Plan Malnutrition Assessment by Registered Dietitian: Malnutrition Assessment Clinical Characteristics Acute,Severe Malnutrition Assessment: - moderate temporal muscle wasting Criteria - intake of <50% EEE for > 5 days Malnutrition Assessment: 1. following up GI tolerance to diet; pt w/ Interventions nausea, abd pain, diarrhea 2. maintaining regular diet (despite DM) to encourage po intake 3. glycemic control w/insulin orders per MD 4. diet education as appropriate Malnutrition Assessment: Goals 1. Pt will tolerate po diet w/o exacerbation of GI s/sx. 2. Improved and adequate po intake to replete lean body mass and hydration w/o undesired wt loss. 3. Electrolytes will improve w/adequate hydration. 4. Adequate glycemic control per inpatient parameters w/ appropriate insulin regimen. Result Diagrams: 05/31/18 06:49 05/31/18 06:44 Additional Lab and Data: Laboratory Results - last 24 hr 05/24/18 05/25/18 05/31/18 22:52 02:44 06:44 WBC RBC Hgb Hct MCV MCH MCHC RDW Plt Count MPV INR (Anticoag Therapy) 2.88 H APTT Sodium 124 L Potassium 4.1 Chloride 93 L Carbon Dioxide 23 Anion Gap 8 BUN 33 H Creatinine 1.37 H Est GFR ( Amer) 47.9 Est GFR (Non-Af Amer) 39.6 BUN/Creatinine Ratio 24.1 H Glucose 138 H POC Glucose (mg/dL) Calcium 7.7 L Magnesium 1.4 L Total Bilirubin 9.40 H Direct Bilirubin 4.60 H Indirect Bilirubin 4.8 H AST 31 ALT 10 Alkaline Phosphatase 107 H Ammonia C-Reactive Protein 53.16 H B-Natriuretic Peptide Total Protein 5.2 L Albumin 2.4 L Globulin 2.8 Albumin/Globulin Ratio 0.9 L Procalcitonin Islet Cell Ag 512 Ab 0.00 Anti-JORGE 65 Antibody 0.02 Zinc Transporter 8 Ab <15.0 Human Insulin Antibody 0.00 Diabetes Mellitus Eval See comment 05/31/18 05/31/18 05/31/18 06:49 06:55 07:47 WBC 19.8 H RBC 2.56 L Hgb 9.0 L Hct 25 L MCV 98 H MCH 35 H MCHC 36 RDW 16 H Plt Count 165 MPV 6.8 L INR (Anticoag Therapy) 3.81 H APTT Sodium Potassium Chloride Carbon Dioxide Anion Gap BUN Creatinine Est GFR ( Amer) Est GFR (Non-Af Amer) BUN/Creatinine Ratio Glucose POC Glucose (mg/dL) 165 H Calcium Magnesium Total Bilirubin Direct Bilirubin Indirect Bilirubin AST ALT Alkaline Phosphatase Ammonia C-Reactive Protein B-Natriuretic Peptide Total Protein Albumin Globulin Albumin/Globulin Ratio Procalcitonin Islet Cell Ag 512 Ab Anti-JORGE 65 Antibody Zinc Transporter 8 Ab Human Insulin Antibody Diabetes Mellitus Eval 05/31/18 05/31/18 05/31/18 11:58 16:50 17:39 WBC RBC Hgb Hct MCV MCH MCHC RDW Plt Count MPV INR (Anticoag Therapy) APTT Sodium Potassium Chloride Carbon Dioxide Anion Gap BUN Creatinine Est GFR ( Amer) Est GFR (Non-Af Amer) BUN/Creatinine Ratio Glucose POC Glucose (mg/dL) 122 H 150 H Calcium Magnesium Total Bilirubin Direct Bilirubin Indirect Bilirubin AST ALT Alkaline Phosphatase Ammonia C-Reactive Protein B-Natriuretic Peptide Total Protein Albumin Globulin Albumin/Globulin Ratio Procalcitonin 1.0 H Islet Cell Ag 512 Ab Anti-JORGE 65 Antibody Zinc Transporter 8 Ab Human Insulin Antibody Diabetes Mellitus Eval 05/31/18 05/31/18 05/31/18 17:39 17:39 19:41 WBC RBC Hgb Hct MCV MCH MCHC RDW Plt Count MPV INR (Anticoag Therapy) APTT 54.6 H Sodium Potassium Chloride Carbon Dioxide Anion Gap BUN Creatinine Est GFR ( Amer) Est GFR (Non-Af Amer) BUN/Creatinine Ratio Glucose POC Glucose (mg/dL) 135 H Calcium Magnesium Total Bilirubin Direct Bilirubin Indirect Bilirubin AST ALT Alkaline Phosphatase Ammonia 40 C-Reactive Protein B-Natriuretic Peptide 111 H Total Protein Albumin Globulin Albumin/Globulin Ratio Procalcitonin Islet Cell Ag 512 Ab Anti-JORGE 65 Antibody Zinc Transporter 8 Ab Human Insulin Antibody Diabetes Mellitus Eval Microbiology and Other Data: Microbiology 05/24/18 23:46 Blood Venous Aerobic Blood Culture - Final No Growth Day 5 05/24/18 23:46 Blood Venous Anaerobic Blood Culture - Final No Growth Day 5 05/24/18 23:46 Blood Venous Aerobic Blood Culture - Final No Growth Day 5 05/24/18 23:46 Blood Venous Anaerobic Blood Culture - Final No Growth Day 5 05/25/18 11:59 Body Fluid Gram Stain - Final 05/25/18 11:59 Body Fluid Body Fluid Culture - Final No Growth Day 4 05/25/18 11:59 Body Fluid Anaerobic Culture - Final No Growth Day 4 05/24/18 23:11 Urine Urine Culture - Final Klebsiella Pneumoniae Diagnostic Imaging: . EKG Data: . Assess/Plan/Problems-Billing 57 y/o female PMH alcoholic liver cirrhosis, sober 2 years, portal vein thrombosis (on apixaban p/w abdominal pain, fever, jaundice and worsening liver failure likely 2/2 SBP. s/p 5.5 days tx cephalosporin. MELD up to 36. New dx IDDM (A1C 11.5). Desires transfer to liver transplant center (no beds at [facility] 05/31). - Patient Problems (1) Alcoholic cirrhosis of liver with ascites Current Visit: Yes Status: Acute Code(s): K70.31 - ALCOHOLIC CIRRHOSIS OF LIVER WITH ASCITES SNOMED Code(s): 604983993 Comment: Acute and worsening Liver Failure with INR up to 3.81, OUTSIDE SALES MANAGER to 1.37, TBili 9.4. MELD 36 with 52% 3 month mortality. Long and reagan discussion with patient and who have both now requested transfer to [facility] for transplant eval. Continue eliquis for portal vein thrombosis Spironolactone and lasix currently at half home doses. IV lasix given 05/30 and slight bump in creatinine which continued today. Will need to monitor this closely. Quite edematous. BMP daily (2) Spontaneous bacterial peritonitis Current Visit: No Status: Acute Code(s): K65.2 - SPONTANEOUS BACTERIAL PERITONITIS SNOMED Code(s): 20555793 Comment: Pt receoved CTX empirically the night 05/24 prior to paracentesis and cultures predictibly did not grow anything. Traumatic tap with many RBCs and PMNs. s/p 5.5 days cephalosporin treatment (3) Abdominal pain Current Visit: Yes Status: Acute Code(s): R10.9 - UNSPECIFIED ABDOMINAL PAIN SNOMED Code(s): 17979436 Comment: Suspect 2/2 SBP and ascites. Pain is controlled with oxycodone q6hr. (4) Diabetes mellitus Current Visit: Yes Status: Acute Code(s): E11.9 - TYPE 2 DIABETES MELLITUS WITHOUT COMPLICATIONS SNOMED Code(s): 72099438 Comment: Lantus to 25 units SQ daily. lispro. (5) Hyponatremia Current Visit: Yes Status: Acute Code(s): E87.1 - HYPO-OSMOLALITY AND HYPONATREMIA SNOMED Code(s): 79025554 Comment: Na 124. 2/2 cirrhosis and volume overload. diuresis as above. (6) Jaundice Current Visit: Yes Status: Acute Code(s): R17 - UNSPECIFIED JAUNDICE SNOMED Code(s): 20294872 Comment: - Total bilirubin up to 9.4, likely worsening alcoholic hepatitis and liver failure. - Evidence of cholelithiasis on ultrasound, no CBD dilatation (7) UTI (urinary tract infection) Current Visit: Yes Status: Acute Comment: Pt with Klebsiella in urine. Tx done for now-monitor for symptoms. (8) Acute liver failure Current Visit: No Status: Acute Comment: [facility] transplant [phone] Plan as above. (9) Esophageal varices Current Visit: No Status: Acute Code(s): I85.00 - ESOPHAGEAL VARICES WITHOUT BLEEDING SNOMED Code(s): 13477084 Comment: s/p EGD 11/29/[address] Alberts 2 column of grade I varices (10) Portal vein thrombosis Current Visit: No Status: Acute Code(s): I81 - PORTAL VEIN THROMBOSIS SNOMED Code(s): 54510238 Comment: apixaban. (11) Seizure Current Visit: Yes Status: Acute Code(s): R56.9 - UNSPECIFIED CONVULSIONS SNOMED Code(s): 25160888 Comment: avoid tramadol and cefepime. appreciate neuro recs. Status and Disposition: medicine inpatient, seeking transfer to a liver transplant center such as [facility].
[2018-05-31 18:10] LABS: INR 3.81 (0.77-1.02)
[2018-05-31 18:10] LABS: INR 2.88 (0.77-1.02)
[2018-05-31] MEDS: Insulin GLARGINE(*) 1 UNITS UNIT SUBCUT SCH (21:49)
[2018-06-01] MEDS: oxyCODONE TAB* 5 MG TAB PO PRN ×6 (00:23→21:27)
[2018-06-01] MEDS: Ondansetron INJ* 2 MG/ML VIAL IV PRN ×3 (00:23→23:55)
[2018-06-01 07:21] LABS: Hematocrit 25 % (35-47); Hemoglobin 8.9 g/dl (12.0-16.0); Mean Corpuscular HGB Conc 36 g/dl (31-36); Mean Corpuscular Hemoglobin 36 pg (27-31); Mean Corpuscular Volume 99 fL (80-97); Mean Platelet Volume 6.9 um3 (7.4-10.4); Platelet Count 181 10^3/ul (150-450); Red Blood Count 2.49 10^6/ul (4.00-5.40); Red Cell Distribution Width 16 % (10.5-15)
[2018-06-01 07:42] LABS: EGFR Non-African American 36.2 (>60)
[2018-06-01 08:11] LABS: ABS Basophils 0.1 10^3/ul (0-0.2); ABS Eosinophils 0 10^3/ul (0-0.6); ABS Lymphocytes 2.3 10^3/ul (1.0-4.8); ABS Monocytes 3.6 10^3/ul (0-0.8); ABS Nucleated RBC 0 10^3/ul; Eosinophil % 0.2 % (0-6); Lymphocyte % 9.6 % (25-47); Nucleated Red Blood Cells % 0.1
[2018-06-01] MEDS: Insulin LISPRO* 1 UNITS UNIT SUBCUT SCH ×7 (08:55→21:27)
[2018-06-01] MEDS: Lactulose* 15 ML UDC PO SCH ×2 (08:56→21:26)
[2018-06-01] MEDS: Furosemide TAB* 20 MG PO SCH (08:56)
[2018-06-01] MEDS: Apixaban* 2.5 MG TAB PO SCH ×2 (08:56→21:26)
[2018-06-01] MEDS: Magnesium Oxide TAB* 400 MG PO SCH (08:57)
[2018-06-01] MEDS ORDERED: Spironolactone TAB* 25 MG PO SCH (09:00)
[2018-06-01] MEDS ORDERED: cefoTAXime(*) 2,000 MG in NS 0.9% 50 ML* 50 ML IVPB SCH (10:00)
[2018-06-01] MEDS: Ciprofloxacin 400MG IVPREMIX(* 400 MG/200 ML BAG IVPB SCH ×2 (12:03→23:56)
--- NOTE | 2018-06-01 16:01 | CONS ---
CONSULTATION REPORT: DATE OF CONSULT: 06/01/18 REQUESTING PROVIDER: Dr. Desai. CONSULTING SERVICE: Infectious Disease. REASON FOR CONSULT: Abdominal pain. IMPRESSION: 1.Ascites, SBP possible based on white cell count, they has focal tenderness in right upper quadrant. Gall bladder imaging was unremarkable. 2. End stage liver disease in setting of alcoholic cirrhosis RECOMMENDATION: Cipro 400 mg IV twice daily and recheck paracentesis to evaluate cell counts and cultures in what has been a fluctuating picture. 57 year old woman Initially admitted with epigastric right upper quadrant pain in the setting of chronic ascites. CT and ultrasound were unrevealing. She had paracentesis that showed 7000 white cells and 99 % neutrophils, blood culture was negative. She was started on ceftriaxone, she had for few days and initial leukocytosis of 15,000, dropped to 9 and then steadily climbed to 22, 000 on antibiotics, though her abdominal pain slowly improved. She stopped her antibiotics on 05/30/18, and her white count is up to 24,000 today. She has intermittent abdominal pain, which is more right upper quadrant and epigastric still and worse after eating. She denies lower diffuse abdominal pain. She has had no fever, chills, or sweats. PAST MEDICAL HISTORY: 1. Decompensated cirrhosis secondary to chronic alcohol use and portal vein thrombosis. 2. Seizure disorder. 3. Esophageal varices. MEDICATIONS: 1. Eliquis. 2. Lasix. 3. Insulin glargine. 4. Insulin lispro. 5. Lactulose. 6. Magnesium oxide. 7. Spironolactone. ALLERGIES: To IV CONTRAST. FAMILY HISTORY: No recurrent infections. SOCIAL HISTORY: She lives with her . No sick contacts. No injection drugs. REVIEW OF SYSTEMS: All negative to 14-point review of systems except as noted in history of present illness. PHYSICAL EXAM: Vital Signs: Temperature 37, heart rate 110, respiratory rate 20, blood pressure 97/55, oxygen saturation 92% on room air. In general, she is awake, not in distress. Neurologic: She is oriented x3. Follows all commands. HEENT: There is no conjunctival hemorrhage. There is scleral icterus. Oropharynx without lesions. Neck: Supple without mass. Heart is regular and tachycardic with 3/6 systolic murmur. Lungs are clear to auscultation bilaterally. Abdomen: Soft, distended. There is right upper quadrant and epigastric tenderness to palpation. There is no rebound tenderness. There is no Leblanc sign. Skin: There are no rashes or splinter hemorrhage. LABORATORY DATA: White blood cell count 24, hemoglobin 8, platelets 181. Creatinine is 1.5. Please see impressions and recommendations as outlined above, which I have discussed with Dr. Desai. Thanks for asking me to see Juliet Alpesh in consultation. [id number]/[facility] #: [id number] [facility]
--- NOTE | 2018-06-01 17:19 | PN ---
Subjective Date of Service: 06/01/18 Interval History: WBC up. more [facility]ig[facility] but they are on critical level diversion so far today. Cipro started. 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 Family History: Unchanged from Admission Social History: Unchanged from Admission Past Medical History: Unchanged from Admission Objective Active Medications: Apixaban (Eliquis) 2.5 mg PO BID [facility] Last Admin: 06/01/18 08:56 Dose: 2.5 mg Dextrose (D50w Syringe 50 Ml*) 12.5 gm IV PUSH .FOR FS < 60 - SS PRN PRN Reason: FS < 60 Furosemide (Lasix Tab*) 20 mg PO DAILY [facility] Last Admin: 06/01/18 08:56 Dose: 20 mg Ciprofloxacin/Dextrose (Cipro 400 Mg Ivpremix(*)) 400 mg in 200 mls @ 200 mls/ hr IVPB Q12H [facility] Last Admin: 06/01/18 12:03 Dose: 200 mls/hr Insulin Glargine (Lantus(*)) 25 units SUBCUT Q24H [facility] Last Admin: 05/31/18 21:49 Dose: 25 unit Insulin Human Lispro (Humalog*) 0 units SUBCUT ACHS [facility]; Protocol Last Admin: 06/01/18 12:44 Dose: Not Given Insulin Human Lispro (Humalog*) 8 units SUBCUT AC [facility] Last Admin: 06/01/18 12:08 Dose: 8 units Lactulose (Lactulose*) 15 ml PO BID [facility] Last Admin: 06/01/18 08:56 Dose: 15 ml Magnesium Oxide (Magox 400 Tab*) 800 mg PO DAILY [facility] Last Admin: 06/01/18 08:57 Dose: 800 mg Ondansetron HCl (Zofran Inj*) 4 mg IV Q6H PRN PRN Reason: NAUSEA Last Admin: 06/01/18 16:52 Dose: 4 mg Oxycodone HCl (Roxycodone Tab*) 2.5 mg PO Q4H PRN PRN Reason: PAIN Last Admin: 06/01/18 16:53 Dose: 2.5 mg Simethicone (Mylicon Tab*) 80 mg PO Q6H PRN PRN Reason: bloating Last Admin: 05/31/18 07:48 Dose: 80 mg Spironolactone (Aldactone Tab*) 50 mg PO DAILY [facility] Last Admin: 06/01/18 08:56 Dose: 50 mg Vital Signs - 8 hr 06/01/18 06/01/18 06/01/18 09:31 11:30 12:40 Temperature Pulse Rate Respiratory 20 20 20 Rate Blood Pressure (mmHg) O2 Sat by Pulse Oximetry 06/01/18 06/01/18 06/01/18 13:25 16:15 16:53 Temperature 98.2 F 98.2 F Pulse Rate 108 105 Respiratory 22 20 Rate Blood Pressure 93/62 87/58 (mmHg) O2 Sat by Pulse 93 98 Oximetry Oxygen Devices in Use Now: Nasal Cannula Appearance: NAD, chronically ill appearing. Ears/Nose/Mouth/Throat: NL Teeth, Lips, Gums Respiratory: Symmetrical Chest Expansion and Respiratory Effort, - - diminished at bases, no rales or rhonchi. Cardiovascular: - - RAJI LUSB, RRR no r/g Abdominal: - - epigastric pain. soft, distended. no rebound or guarding. Extremities: - - 3+ edema ankles, lower extermity edema. Skin: No Rash or Ulcers, No Nodules or Sclerosis Neurological: Alert and Oriented x 3, - - no other asterixis. Nutrition: Taking PO's - Nutrition: Malnutrition Diagnosis/Plan Malnutrition Assessment by Registered Dietitian: Malnutrition Assessment Clinical Characteristics Acute,Severe Malnutrition Assessment: - moderate temporal muscle wasting Criteria - intake of <50% EEE for > 5 days Malnutrition Assessment: 1. following up GI tolerance to diet; pt w/ Interventions nausea, abd pain, diarrhea 2. maintaining regular diet (despite DM) to encourage po intake 3. glycemic control w/insulin orders per MD 4. diet education as appropriate Malnutrition Assessment: Goals 1. Pt will tolerate po diet w/o exacerbation of GI s/sx. 2. Improved and adequate po intake to replete lean body mass and hydration w/o undesired wt loss. 3. Electrolytes will improve w/adequate hydration. 4. Adequate glycemic control per inpatient parameters w/ appropriate insulin regimen. Result Diagrams: 06/01/18 07:09 06/01/18 07:09 Additional Lab and Data: Laboratory Results - last 24 hr 05/24/18 05/25/18 05/31/18 22:52 02:44 06:55 WBC RBC Hgb Hct MCV MCH MCHC RDW Plt Count MPV Neut % (Auto) Lymph % (Auto) Butts % (Auto) Eos % (Auto) Baso % (Auto) Absolute Neuts (auto) Absolute Lymphs (auto) Absolute Monos (auto) Absolute Eos (auto) Absolute Basos (auto) Absolute Nucleated RBC Nucleated RBC % INR (Anticoag Therapy) 2.88 H 3.81 H APTT Sodium Potassium Chloride Carbon Dioxide Anion Gap BUN Creatinine Est GFR ( Amer) Est GFR (Non-Af Amer) BUN/Creatinine Ratio Glucose POC Glucose (mg/dL) Calcium Total Bilirubin AST ALT Alkaline Phosphatase Ammonia B-Natriuretic Peptide Total Protein Albumin Globulin Albumin/Globulin Ratio Procalcitonin Ur Random Creatinine Ur Random Sodium Ur Random Urea Nitrogn Urine Potassium Islet Cell Ag 512 Ab 0.00 Anti-JORGE 65 Antibody 0.02 Zinc Transporter 8 Ab <15.0 Human Insulin Antibody 0.00 Diabetes Mellitus Eval See comment 05/31/18 05/31/18 05/31/18 17:39 17:39 17:39 WBC RBC Hgb Hct MCV MCH MCHC RDW Plt Count MPV Neut % (Auto) Lymph % (Auto) Butts % (Auto) Eos % (Auto) Baso % (Auto) Absolute Neuts (auto) Absolute Lymphs (auto) Absolute Monos (auto) Absolute Eos (auto) Absolute Basos (auto) Absolute Nucleated RBC Nucleated RBC % INR (Anticoag Therapy) APTT 54.6 H Sodium Potassium Chloride Carbon Dioxide Anion Gap BUN Creatinine Est GFR ( Amer) Est GFR (Non-Af Amer) BUN/Creatinine Ratio Glucose POC Glucose (mg/dL) Calcium Total Bilirubin AST ALT Alkaline Phosphatase Ammonia 40 B-Natriuretic Peptide 111 H Total Protein Albumin Globulin Albumin/Globulin Ratio Procalcitonin 1.0 H Ur Random Creatinine Ur Random Sodium Ur Random Urea Nitrogn Urine Potassium Islet Cell Ag 512 Ab Anti-JORGE 65 Antibody Zinc Transporter 8 Ab Human Insulin Antibody Diabetes Mellitus Eval 05/31/18 06/01/18 06/01/18 19:41 07:09 07:09 WBC 24.0 H RBC 2.49 L Hgb 8.9 L Hct 25 L MCV 99 H MCH 36 H MCHC 36 RDW 16 H Plt Count 181 MPV 6.9 L Neut % (Auto) 74.9 Lymph % (Auto) 9.6 L Butts % (Auto) 14.8 H Eos % (Auto) 0.2 Baso % (Auto) 0.5 Absolute Neuts (auto) 18.0 H Absolute Lymphs (auto) 2.3 Absolute Monos (auto) 3.6 H Absolute Eos (auto) 0 Absolute Basos (auto) 0.1 Absolute Nucleated RBC 0 Nucleated RBC % 0.1 INR (Anticoag Therapy) APTT Sodium 123 L Potassium 4.2 Chloride 95 L Carbon Dioxide 21 L Anion Gap 7 BUN 33 H Creatinine 1.48 H Est GFR ( Amer) 43.8 Est GFR (Non-Af Amer) 36.2 BUN/Creatinine Ratio 22.3 H Glucose 166 H POC Glucose (mg/dL) 135 H Calcium 7.5 L Total Bilirubin 9.00 H AST 30 ALT 10 Alkaline Phosphatase 104 Ammonia B-Natriuretic Peptide Total Protein 4.9 L Albumin 2.0 L Globulin 2.9 Albumin/Globulin Ratio 0.7 L Procalcitonin Ur Random Creatinine Ur Random Sodium Ur Random Urea Nitrogn Urine Potassium Islet Cell Ag 512 Ab Anti-JORGE 65 Antibody Zinc Transporter 8 Ab Human Insulin Antibody Diabetes Mellitus [facility] 06/01/18 06/01/18 06/01/18 08:03 10:46 11:33 WBC RBC Hgb Hct MCV MCH MCHC RDW Plt Count MPV Neut % (Auto) Lymph % (Auto) Butts % (Auto) Eos % (Auto) Baso % (Auto) Absolute Neuts (auto) Absolute Lymphs (auto) Absolute Monos (auto) Absolute Eos (auto) Absolute Basos (auto) Absolute Nucleated RBC Nucleated RBC % INR (Anticoag Therapy) APTT Sodium Potassium Chloride Carbon Dioxide Anion Gap BUN Creatinine Est GFR ( Amer) Est GFR (Non-Af Amer) BUN/Creatinine Ratio Glucose POC Glucose (mg/dL) 168 H 115 H Calcium Total Bilirubin AST ALT Alkaline Phosphatase Ammonia B-Natriuretic Peptide Total Protein Albumin Globulin Albumin/Globulin Ratio Procalcitonin Ur Random Creatinine 155.37 Ur Random Sodium < 18 Ur Random Urea Nitrogn 685 Urine Potassium 24.1 Islet Cell Ag 512 Ab Anti-JORGE 65 Antibody Zinc Transporter 8 Ab Human Insulin Antibody Diabetes Mellitus [facility] 06/01/18 06/01/18 12:40 16:58 WBC RBC Hgb Hct MCV MCH MCHC RDW Plt Count MPV Neut % (Auto) Lymph % (Auto) Butts % (Auto) Eos % (Auto) Baso % (Auto) Absolute Neuts (auto) Absolute Lymphs (auto) Absolute Monos (auto) Absolute Eos (auto) Absolute Basos (auto) Absolute Nucleated RBC Nucleated RBC % INR (Anticoag Therapy) APTT Sodium Potassium Chloride Carbon Dioxide Anion Gap BUN Creatinine Est GFR ( Amer) Est GFR (Non-Af Amer) BUN/Creatinine Ratio Glucose POC Glucose (mg/dL) 143 H 121 H Calcium Total Bilirubin AST ALT Alkaline Phosphatase Ammonia B-Natriuretic Peptide Total Protein Albumin Globulin Albumin/Globulin Ratio Procalcitonin Ur Random Creatinine Ur Random Sodium Ur Random Urea Nitrogn Urine Potassium Islet Cell Ag 512 Ab Anti-JORGE 65 Antibody Zinc Transporter 8 Ab Human Insulin Antibody Diabetes Mellitus Eval Microbiology and Other Data: Microbiology 05/24/18 23:46 Blood Venous Aerobic Blood Culture - Final No Growth Day 5 05/24/18 23:46 Blood Venous Anaerobic Blood Culture - Final No Growth Day 5 05/24/18 23:46 Blood Venous Aerobic Blood Culture - Final No Growth Day 5 05/24/18 23:46 Blood Venous Anaerobic Blood Culture - Final No Growth Day 5 05/25/18 11:59 Body Fluid Gram Stain - Final 05/25/18 11:59 Body Fluid Body Fluid Culture - Final No Growth Day 4 05/25/18 11:59 Body Fluid Anaerobic Culture - Final No Growth Day 4 05/24/18 23:11 Urine Urine Culture - Final Klebsiella Pneumoniae Diagnostic Imaging: . EKG Data: . Assess/Plan/Problems-Billing 57 y/o female PMH alcoholic liver cirrhosis, sober 2 years, portal vein thrombosis (on apixaban p/w abdominal pain, fever, jaundice and worsening liver failure likely 2/2 SBP. s/p 6 days tx cephalosporin. MELD up to 36. New dx IDDM (A1C 11.5). Desires and has been accepted to [facility] liver transplant service but awaiting bed (no beds at [place] 05/31 or 06/01). 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 MELD 36 with 52.6% 3 month mortality. She has been accepted to [facility] for transplant eval but awaiting for bed. Continue eliquis for portal vein thrombosis Spironolactone(increased to 50mg) and lasix 20mg. Quite edematous. BMP daily (2) Spontaneous bacterial peritonitis Current Visit: No Status: Acute Code(s): K65.2 - SPONTANEOUS BACTERIAL PERITONITIS SNOMED Code(s): 43805474 Comment: Pt received CFTX empirically the night 05/24 prior to 05/25 paracentesis and cultures predictibly did not grow anything. Traumatic tap with many RBCs and PMNs. s/p 6 days cephalosporin treatment. given worsening leukocytosis and continued abdominal pain, ciprofloxaxin started. Appreciate ID recs. (3) Abdominal pain Current Visit: Yes Status: Acute Code(s): R10.9 - UNSPECIFIED ABDOMINAL PAIN SNOMED Code(s): 50517113 Comment: Suspect 2/2 SBP and ascites. Pain is controlled with oxycodone q6hr. (4) Diabetes mellitus Current Visit: Yes Status: Acute Code(s): E11.9 - TYPE 2 DIABETES MELLITUS WITHOUT COMPLICATIONS SNOMED Code(s): 90882553 Comment: Lantus to 25 units SQ daily. lispro. (5) Hyponatremia Current Visit: Yes Status: Acute Code(s): E87.1 - HYPO-OSMOLALITY AND HYPONATREMIA SNOMED Code(s): 09386015 Comment: Na 123. 2/2 cirrhosis and volume overload. diuresis as above. (6) Jaundice Current Visit: Yes Status: Acute Code(s): R17 - UNSPECIFIED JAUNDICE SNOMED Code(s): 59202838 Comment: - Total bilirubin 9.0, likely worsening alcoholic hepatitis and liver failure. - Evidence of cholelithiasis on ultrasound, no CBD dilatation (7) UTI (urinary tract infection) Current Visit: Yes Status: Acute Comment: Pt with Klebsiella in urine. Tx done for now-monitor for symptoms. (8) Acute liver failure Current Visit: No Status: Acute Comment: Accepted by [facility] Liver transplant - [phone] Plan as above. (9) Esophageal varices Current Visit: No Status: Acute Code(s): I85.00 - ESOPHAGEAL VARICES WITHOUT BLEEDING SNOMED Code(s): 30526545 Comment: s/p EGD 11/29/[address] Alberts 2 column of grade I varices (10) Portal vein thrombosis Current Visit: No Status: Acute Code(s): I81 - PORTAL VEIN THROMBOSIS SNOMED Code(s): 62869399 Comment: apixaban. (11) Seizure Current Visit: Yes Status: Acute Code(s): R56.9 - UNSPECIFIED CONVULSIONS SNOMED Code(s): 66304589 Comment: avoid tramadol and cefepime. appreciate neuro recs. Status and Disposition: medicine inpatient, awaiting bed for transfer to a liver transplant center such as [facility].
[2018-06-01] MEDS: Insulin GLARGINE(*) 1 UNITS UNIT SUBCUT SCH (21:26)
[2018-06-01] MEDS: Simethicone TAB* 80 MG TAB.CHEW PO PRN (23:55)
[2018-06-02] MEDS: oxyCODONE TAB* 5 MG TAB PO PRN ×5 (02:14→21:32)
[2018-06-02 08:05] LABS: Hematocrit 25 % (35-47); Hemoglobin 8.9 g/dl (12.0-16.0); Mean Corpuscular HGB Conc 36 g/dl (31-36); Mean Corpuscular Hemoglobin 36 pg (27-31); Mean Corpuscular Volume 101 fL (80-97); Mean Platelet Volume 6.8 um3 (7.4-10.4); Platelet Count 158 10^3/ul (150-450); Red Blood Count 2.45 10^6/ul (4.00-5.40); Red Cell Distribution Width 17 % (10.5-15); White Blood Count 25.7 10^3/ul (3.5-10.8)
[2018-06-02 08:24] LABS: EGFR Non-African American 30.5 (>60)
[2018-06-02] MEDS: Magnesium Oxide TAB* 400 MG PO SCH (08:35)
[2018-06-02] MEDS: Apixaban* 2.5 MG TAB PO SCH ×2 (08:36→21:30)
[2018-06-02] MEDS: Insulin LISPRO* 1 UNITS UNIT SUBCUT SCH ×7 (08:36→21:31)
[2018-06-02] MEDS: Ondansetron INJ* 2 MG/ML VIAL IV PRN ×2 (08:37→22:03)
[2018-06-02 08:38] LABS: INR 4.8 (0.77-1.02)
[2018-06-02] MEDS: Lactulose* 15 ML UDC PO SCH ×2 (08:38→21:29)
[2018-06-02 09:08] LABS: ABS Basophils 0 10^3/ul (0-0.2); ABS Eosinophils 0.1 10^3/ul (0-0.6); ABS Monocytes 3.9 10^3/ul (0-0.8); ABS Neutrophils 19.8 10^3/ul (1.5-7.7); ABS Nucleated RBC 0 10^3/ul; Eosinophil % 0.3 % (0-6); Lymphocyte % 7.7 % (25-47); Nucleated Red Blood Cells % 0.1
[2018-06-02] MEDS ORDERED: Phytonadione Oral Solution* 5 MG/25 ML UDC PO ONE (10:09)
[2018-06-02] MEDS: Ciprofloxacin 200mg IVPREMIX(* 200 MG/100 ML BAG IV SCH ×2 (11:41→23:13)
[2018-06-02] MEDS: CMC:Midodrine (NF) 5 MG TAB PO SCH ×3 (11:43→21:29)
[2018-06-02] MEDS: Octreotide Acetate* 100 MCG/ML 1 ML VIAL SUBCUT SCH ×2 (11:45→21:30)
[2018-06-02] MEDS: Albumin Human 25%* 25 GM/100 ML BTL IV SCH ×2 (14:52→22:03)
--- NOTE | 2018-06-02 17:58 | PN ---
Subjective Date of Service: 06/02/18 Interval History: [facility] still on critical capacity bed diversion INR to 4.80. po vitamin k 10 given [employer]OR [employer]TER to 1.72. diuretics stopped. GI recommended hepatorenal syndrome therapy with midodrine, octreotide and albumin infusion. Patient feeling better actually, not asking for pain meds. very poor po intake however. Family History: Unchanged from Admission Social History: Unchanged from Admission Past Medical History: Unchanged from Admission Objective Active Medications: Apixaban (Eliquis) 2.5 mg PO BID [facility] Last Admin: 06/02/18 08:36 Dose: 2.5 mg Dextrose (D50w Syringe 50 Ml*) 12.5 gm IV PUSH .FOR FS < 60 - SS PRN PRN Reason: FS < 60 Ciprofloxacin/Dextrose (Cipro 200 Mg Ivpremix(*)) 200 mg in 100 mls @ 100 mls/ hr IV Q12H [facility] Last Admin: 06/02/18 11:41 Dose: 100 mls/hr Albumin Human (Albumin Human 25%*) 25 gm in 100 mls @ 2 mls/min IV Q8HR [facility] Last Admin: 06/02/18 14:52 Dose: 2 mls/min Insulin Glargine (Lantus(*)) 25 units SUBCUT Q24H [facility] Last Admin: 06/01/18 21:26 Dose: 25 unit Insulin Human Lispro (Humalog*) 0 units SUBCUT ACHS [facility]; Protocol Last Admin: 06/02/18 17:38 Dose: 3 units Insulin Human Lispro (Humalog*) 7 units SUBCUT AC [facility] Last Admin: 06/02/18 17:36 Dose: 7 units Lactulose (Lactulose*) 15 ml PO BID [facility] Last Admin: 06/02/18 08:38 Dose: 15 ml Magnesium Oxide (Magox 400 Tab*) 800 mg PO DAILY [facility] Last Admin: 06/02/18 08:35 Dose: 800 mg Midodrine (Midodrine (Nf)) 7.5 mg PO TID [facility]; Protocol Last Admin: 06/02/18 14:53 Dose: 7.5 mg Octreotide Acetate (Octreotide Acetate*) 100 mcg SUBCUT BID [facility] Last Admin: 06/02/18 11:45 Dose: 100 mcg Ondansetron HCl (Zofran Inj*) 4 mg IV Q6H PRN PRN Reason: NAUSEA Last Admin: 06/02/18 08:37 Dose: 4 mg Oxycodone HCl (Roxycodone Tab*) 2.5 mg PO Q4H PRN PRN Reason: PAIN Last Admin: 06/02/18 16:48 Dose: 2.5 mg Vital Signs - 8 hr 06/02/18 06/02/18 06/02/18 10:30 11:05 13:00 Temperature 98.1 F Pulse Rate 111 Respiratory 20 18 20 Rate Blood Pressure 89/52 (mmHg) O2 Sat by Pulse 95 Oximetry 06/02/18 06/02/18 06/02/18 15:04 15:49 16:28 Temperature 98.5 F 97.8 F Pulse Rate 96 100 Respiratory 24 22 16 Rate Blood Pressure 110/59 112/61 (mmHg) O2 Sat by Pulse 93 97 Oximetry 06/02/18 16:48 Temperature Pulse Rate Respiratory 20 Rate Blood Pressure (mmHg) O2 Sat by Pulse Oximetry Oxygen Devices in Use Now: Nasal Cannula Appearance: NAD, chronically ill appearing. Eyes: - - scleral icterus Respiratory: - - diminished breath sounds throughout, no rhonchi, rales or wheezing appreciated. Cardiovascular: NL Sounds; No Murmurs; No JVD Abdominal: - - soft, distended, tenderness to palpation in epigastric region. Extremities: - - 3+ pitting edema ankles, lower extremities. Neurological: Alert and Oriented x 3, NL Sensation Nutrition: Taking PO's - Nutrition: Malnutrition Diagnosis/Plan Malnutrition Assessment by Registered Dietitian: Malnutrition Assessment Clinical Characteristics Acute,Severe Malnutrition Assessment: - moderate temporal muscle wasting Criteria - intake of <50% EEE for > 5 days Malnutrition Assessment: 1. following up GI tolerance to diet; pt w/ Interventions nausea, abd pain, diarrhea 2. maintaining regular diet (despite DM) to encourage po intake 3. glycemic control w/insulin orders per MD 4. diet education as appropriate Malnutrition Assessment: Goals 1. Pt will tolerate po diet w/o exacerbation of GI s/sx. 2. Improved and adequate po intake to replete lean body mass and hydration w/o undesired wt loss. 3. Electrolytes will improve w/adequate hydration. 4. Adequate glycemic control per inpatient parameters w/ appropriate insulin regimen. Result Diagrams: 06/02/18 07:30 06/02/18 07:30 Additional Lab and Data: Laboratory Results - last 24 hr 06/01/18 06/02/18 06/02/18 20:49 07:22 07:30 WBC 25.7 H RBC 2.45 L Hgb 8.9 L Hct 25 L MCV 101 H MCH 36 H MCHC 36 RDW 17 H Plt Count 158 MPV 6.8 L Neut % (Auto) 76.9 Lymph % (Auto) 7.7 L [place] % (Auto) 15.0 H Eos % (Auto) 0.3 Baso % (Auto) 0.1 Absolute Neuts (auto) 19.8 H Absolute Lymphs (auto) 2.0 Absolute Monos (auto) 3.9 H Absolute Eos (auto) 0.1 Absolute Basos (auto) 0 Absolute Nucleated RBC 0 Nucleated RBC % 0.1 Polychromasia 1+ Hypochromasia 1+ Anisocytosis 2+ Macrocytosis 1+ INR (Anticoag Therapy) Sodium Potassium Chloride Carbon Dioxide Anion Gap BUN Creatinine Est GFR ( Amer) Est GFR (Non-Af Amer) BUN/Creatinine Ratio Glucose POC Glucose (mg/dL) 176 H 266 H Calcium Magnesium Total Bilirubin AST ALT Alkaline Phosphatase Total Protein Albumin Globulin Albumin/Globulin Ratio 06/02/18 06/02/18 06/02/18 07:30 07:30 11:41 WBC RBC Hgb Hct MCV MCH MCHC RDW Plt Count MPV Neut % (Auto) Lymph % (Auto) Maverick % (Auto) Eos % (Auto) Baso % (Auto) Absolute Neuts (auto) Absolute Lymphs (auto) Absolute Monos (auto) Absolute Eos (auto) Absolute Basos (auto) Absolute Nucleated RBC Nucleated RBC % Polychromasia Hypochromasia Anisocytosis Macrocytosis INR (Anticoag Therapy) 4.80 H Sodium 123 L Potassium 4.4 Chloride 93 L Carbon Dioxide 23 Anion Gap 7 BUN 39 H Creatinine 1.72 H Est GFR ( Amer) 36.9 Est GFR (Non-Af Amer) 30.5 BUN/Creatinine Ratio 22.7 H Glucose 233 H POC Glucose (mg/dL) 121 H Calcium 7.7 L Magnesium 1.8 L Total Bilirubin 9.60 H AST 27 ALT 10 Alkaline Phosphatase 113 H Total Protein 5.1 L Albumin 2.1 L Globulin 3.0 Albumin/Globulin Ratio 0.7 L 06/02/18 16:29 WBC RBC Hgb Hct MCV MCH MCHC RDW Plt Count MPV Neut % (Auto) Lymph % (Auto) Maverick % (Auto) Eos % (Auto) Baso % (Auto) Absolute Neuts (auto) Absolute Lymphs (auto) Absolute Monos (auto) Absolute Eos (auto) Absolute Basos (auto) Absolute Nucleated RBC Nucleated RBC % Polychromasia Hypochromasia Anisocytosis Macrocytosis INR (Anticoag Therapy) Sodium Potassium Chloride Carbon Dioxide Anion Gap BUN Creatinine Est GFR ( Amer) Est GFR (Non-Af Amer) BUN/Creatinine Ratio Glucose POC Glucose (mg/dL) 260 H Calcium Magnesium Total Bilirubin AST ALT Alkaline Phosphatase Total Protein Albumin Globulin Albumin/Globulin Ratio Microbiology and Other Data: Microbiology 05/24/18 23:46 Blood Venous Aerobic Blood Culture - Final No Growth Day 5 05/24/18 23:46 Blood Venous Anaerobic Blood Culture - Final No Growth Day 5 05/24/18 23:46 Blood Venous Aerobic Blood Culture - Final No Growth Day 5 05/24/18 23:46 Blood Venous Anaerobic Blood Culture - Final No Growth Day 5 05/25/18 11:59 Body Fluid Gram Stain - Final 05/25/18 11:59 Body Fluid Body Fluid Culture - Final No Growth Day 4 05/25/18 11:59 Body Fluid Anaerobic Culture - Final No Growth Day 4 05/24/18 23:11 Urine Urine Culture - Final Klebsiella Pneumoniae Diagnostic Imaging: . EKG Data: . Assess/Plan/Problems-Billing 57 y/o female PMH alcoholic liver cirrhosis, sober 2 years, portal vein thrombosis (on apixaban p/w abdominal pain, fever, jaundice and worsening liver failure likely 2/2 SBP and now possibly hepatorenal syndrome. s/p 6 days tx cephalosporin, currently cipro x 2 days. MELD 39 . New dx IDDM (A1C 11.5). Desires and has been accepted to [facility] [place] liver transplant service but awaiting bed (no beds at [place] 05/31 or 06/01 or so far 06/02). - Patient Problems (1) Alcoholic cirrhosis of liver with ascites Current Visit: Yes Status: Acute Code(s): K70.31 - ALCOHOLIC CIRRHOSIS OF LIVER WITH ASCITES SNOMED Code(s): 091721321 Comment: Acute and worsening Liver Failure with INR up to 4.8 (10 po vitamin K given), [employer] to 1.72, TBili 9.6. MELD 39 with 52.6% 3 month mortality. Given progressive march up in [employer], Stopped Spironolactone(50mg) and lasix 20mg. Dr. Cohen of GI recommended empiric hepatorenal syndrome treatment with albumin 25g q8, midodrine and octreotide. She has been accepted to [facility] [place] for transplant eval but awaiting for bed. Continue eliquis for portal vein thrombosis (2) Spontaneous bacterial peritonitis Current Visit: No Status: Acute Code(s): K65.2 - SPONTANEOUS BACTERIAL PERITONITIS SNOMED Code(s): 38062141 Comment: Pt received CFTX empirically the night 05/24 prior to 05/25 paracentesis and cultures predictibly did not grow anything. Traumatic tap with many RBCs and PMNs ~6700 s/p 6 days cephalosporin treatment. given worsening leukocytosis and continued abdominal pain, ciprofloxaxin started on 06/01 and will continue though decrease dose for worsening renal clearance. Appreciate ID recs. (3) Abdominal pain Current Visit: Yes Status: Acute Code(s): R10.9 - UNSPECIFIED ABDOMINAL PAIN SNOMED Code(s): 25508847 Comment: Suspect 2/2 SBP and ascites. Pain is controlled with oxycodone q6hr though did not need today and states improved. (4) Diabetes mellitus Current Visit: Yes Status: Acute Code(s): E11.9 - TYPE 2 DIABETES MELLITUS WITHOUT COMPLICATIONS SNOMED Code(s): 95769144 Comment: Lantus to 25 units SQ daily. lispro. caution with worsening [employer] appetite has been poor. A1C 11.5% (5) Hyponatremia Current Visit: Yes Status: Acute Code(s): E87.1 - HYPO-OSMOLALITY AND HYPONATREMIA SNOMED Code(s): 87279289 Comment: Na 123. 2/2 cirrhosis and volume overload. (6) Jaundice Current Visit: Yes Status: Acute Code(s): R17 - UNSPECIFIED JAUNDICE SNOMED Code(s): 40363433 Comment: - Total bilirubin 9.6, likely worsening alcoholic hepatitis and acute on chronic liver failure. - Evidence of cholelithiasis on ultrasound, no CBD dilatation (7) UTI (urinary tract infection) Current Visit: Yes Status: Acute Comment: Pt with Klebsiella in urine. Tx done for now-monitor for symptoms. (8) Acute liver failure Current Visit: No Status: Acute Comment: Accepted by [facility] [place] Liver transplant - [phone] Plan as above. (9) Esophageal varices Current Visit: No Status: Acute Code(s): I85.00 - ESOPHAGEAL VARICES WITHOUT BLEEDING SNOMED Code(s): 05854322 Comment: s/p EGD 11/29/[address] Alberts 2 column of grade I varices (10) Portal vein thrombosis Current Visit: No Status: Acute Code(s): I81 - PORTAL VEIN THROMBOSIS SNOMED Code(s): 56771750 Comment: apixaban. (11) Seizure Current Visit: Yes Status: Acute Code(s): R56.9 - UNSPECIFIED CONVULSIONS SNOMED Code(s): 24297273 Comment: avoid tramadol and cefepime. appreciate neuro recs. Status and Disposition: medicine inpatient, awaiting bed for transfer to a liver transplant center such as [facility].
[2018-06-02] MEDS: Insulin GLARGINE(*) 1 UNITS UNIT SUBCUT SCH (21:31)
[2018-06-03 00:29] VITALS: BP 104/58
--- NOTE | 2018-06-03 01:35 | PN ---
Progress Note - Progress Note Date of Service: 06/03/18 Note: Nursing called reporting ambulance crew is considering refusing transport as they feel her rhythm on their monitor is new onset AFIB. ECG requested. Both their rhythm strip and our ECG show NSR. Transfer medically approved.
--- NOTE | 2018-06-03 02:15 | DS ---
DISCHARGE SUMMARY: DATE OF ADMISSION: 05/24/18 DATE OF DISCHARGE: 06/02/18 ADMITTING PROVIDER: Marcell Harris NP. PRIMARY CARE PHYSICIAN: Jose Luis Waller. ATTENDING PHYSICIAN ON THE DAY OF DISCHARGE: Pedro Luis Desai MD. CONSULTING ASSEMBLING MOTOR BUILDER: Dr. Cohen. CONSULTING DUTY OFFICER: Dr. Wright. CONSULTING NEUROLOGIST: Dr. Marion. CHIEF COMPLAINT: Abdominal pain. PRINCIPAL DIAGNOSES: 1. Acute liver failure. 2. Likely spontaneous bacterial peritonitis. 3. Acute kidney injury with possibility of hepatorenal syndrome. 4. New diagnosis of diabetes mellitus with insulin dependence. 5. Klebsiella pneumonia urinary tract infection. 6. Seizure. 7. Sepsis. 8. Chronic alcoholic cirrhosis, abstinent from alcohol for approximately 2 years. HISTORY OF PRESENT ILLNESS AND HOSPITAL COURSE: Nicole Betts is a 57-year- old female with past medical history of alcoholic cirrhosis, grade 1 esophageal varices, chronic portal vein thrombosis (on Eliquis), seizure disorder, who presented to [facility] emergency room with intermittent abdominal pain of 1 week's durationt. It is described as lower suprapubic and right upper quadrant at times. It progressively got much worse. Please see H&P for full details. Initial workup at [facility] ED included lactic acidosis of 3.3, leukocytosis of 14.5, INR of 2.88. Glucose of 488, A1c of 11.5. Sodium of 120, CRP of 109, creatinine of 0.89. Total bilirubin of 8.2, alk phos 105, albumin 2.6, lipase less than 10. Urinalysis with 1+ bacteria, 2+ wbc's, trace leukocyte esterase, 2+ glucose. She had a CT abdomen and pelvis, which demonstrated cholelithiasis and complications of cirrhosis including splenomegaly, diffuse ascites. No bile ductal dilatation. She had a gallbladder ultrasound, which again demonstrated cholelithiasis without other findings of cholecystitis. The patient was given dose of ceftriaxone after blood cultures and urine cultures obtained, and was given sepsis fluid bolus. Urine culture would ultimately grow Klebsiella pneumonia (greater than 100,000) sensitive to ampicillin and intermittent to nitrofurantoin . She had a diagnostic paracentesis on hospital day #2 by General Surgeon, Dr. Naveed Arshad, which demonstrated bloody appearance with 231,000 rbc's and 7022 wbc's, with 96% neutrophils, 2% lymphocytes, 2% monocytes, and asitic fluid total protein of 2.5. She was continued on the empiric ceftriaxone and the paracentesis fluid ultimately did not grow any organisms. There was 4+ neutrophils on gram stain. Dr. Wright of endocrinology consulted given her new onset diabetes and a negative autoimmune workup resulted (islet cell antigen 512 antibody (0), anti-GAD65 antibody(0.02) , zinc transporter 8 antibody(less than 15), and human insulin antibody(0). She ultimately was stabilized on regimen of 25 units Lantus q.h.s. between 7 and 8 of lispro with each meal with sliding scale coverage on top. Dr. Cohen of Gastroenterology consulted on the case. Her abdominal pain wax and wane. Her T- max throughout the admission was 100.3 on hospital day #2. She completed 5.5 days of cephalosporin therapy (ceftriaxone / PM - 05/27 then cefepime 92-9/3 AM). She also received vancomycin and flagyl between 05/28 to . At that point in time antibiotics were held. After consultation with ID physician Dmitriy Hare, anitibiotics were restarted on 06/01 with IV ciprofloxacin given her rising leukocytosis and still not completely resolved abdominal pain. Of note more concerning was her worsening coagulopathy for which did receive some vitamin K orally and later in the admission worsening kidney function. Her home diuretics were then stopped and Dr. Cohen suggested empiric treatment for hepatorenal syndrome and midodrine, octreotide, and albumin were started on morning of 06/02. Her creatinine on day of discharge was 1.72 up from 1.48 and 1.37 and 1.15 in the previous 3 days. Her INR fan to 3.8 on 05/31/18 and then 4.8 06/02/18. She had a MELD score as high as 39. On 05/[address] Desai to nearest liver transplant center was pursued. There were no beds available that night, but Dr. Jerson Machado thankfully accepted the patient the next day on 06/01/18. Unfortunately [facility] was on critical diversion still up until late the night of transfer 06/02. She is being transferred to unit 4, bed 3600. Her course was never complicated by encephalopathy or upper GI bleeding. She did have an episode concerning for seizure in the setting of tramadol use along with cefepime and Neurologist Dr. Marion recommended cessation of those agents given the lowering of seizure threshold potential, but no antiepileptic medications were recommended. Long and reagan discussions were held with the patient and , who have been previously weary of transplant evaluation but they quickly were enthusiastic about transfer to a transplant center given her worsening liver failure. As mentioned she has been sober two years. DISCHARGE MEDICATIONS: Include: 1. Apixaban 2.5 mg p.o. b.i.d. 2. Lantus 25 units subcu q.h.s. 3. Lactulose 15 mL p.o. b.i.d. but titrated to 2 to 3 soft loose bowel movements daily. 4. Magnesium oxide 800 mg daily. 5. Midodrine 7.5 mg p.o. t.i.d. with potential for uptitration 6. Octreotide 100 mcg subcutaneous b.i.d. 7. Zofran 4 mg IV q.6 hours p.r.n. 8. Oxycodone 2.5 mg p.o. q.4 hours p.r.n. 9. Ciprofloxacin 200 mg IV q.12 hours. 10. EpiPen p.r.n. 11. Lispro 7 units q.a.c. with additional sliding scale as necessary. OF NOTE patient formerly had been on Aldactone 50 mg daily and Lasix 40 mg daily prior to this recent hospitalization. FOLLOWUP: The patient is being transferred to the nearest liver transplant center for evaluation and for management of her acute liver failure. Upon discharge, she should see PCP, Jose Luis Waller; Juan Wright, Endocrinology; and Dr. Cohen of Gastroenterology. TIME SPENT: On discharge 40 minutes. [id number]/[facility] #: [id number] [facility]
[2018-06-03] MEDS ORDERED: Furosemide IV* 10 MG/ML 2 ML VIAL (20 MG) IV ONE (03:12)
== END 2018-06-03 01:00 | disposition short-term general hospital (02) | DRG 710 ==
LOC: ED 17:17 → MED 22:50
PROVIDERS: ADMIT Pediatrics; ATTEND Internal Medicine
PROC: 0W9G3ZX Drainage of Peritoneal Cavity, Percutaneous Approach, Diagnostic (ICD-10-PCS; 2018-05-25)
PROC: BW40ZZZ Ultrasonography of Abdomen (ICD-10-PCS; principal; 2018-05-25 11:45)
PROC: 4A00X4Z Measurement of Central Nervous Electrical Activity, External Approach (ICD-10-PCS; 2018-05-30)
DX: A41.9 Sepsis, unspecified organism (principal); I81 Portal vein thrombosis; E43 Unspecified severe protein-calorie malnutrition; K65.2 Spontaneous bacterial peritonitis; K76.7 Hepatorenal syndrome; E87.1 Hypo-osmolality and hyponatremia; I85.00 Esophageal varices without bleeding; E87.2 Acidosis; E72.4 Disorders of ornithine metabolism; N17.9 Acute kidney failure, unspecified; N39.0 Urinary tract infection, site not specified; D68.9 Coagulation defect, unspecified; K80.20 Calculus of gallbladder without cholecystitis without obstruction; E80.6 Other disorders of bilirubin metabolism; K70.31 Alcoholic cirrhosis of liver with ascites; T40.4X5A Adverse effect of other synthetic narcotics, initial encounter; T36.1X5A Adverse effect of cephalosporins and other beta-lactam antibiotics, initial encounter; Y92.239 Unspecified place in hospital as the place of occurrence of the external cause; K70.40 Alcoholic hepatic failure without coma; E11.9 Type 2 diabetes mellitus without complications; G40.909 Epilepsy, unspecified, not intractable, without status epilepticus; H55.00 Unspecified nystagmus; R16.1 Splenomegaly, not elsewhere classified; B96.1 Klebsiella pneumoniae [K. pneumoniae] as the cause of diseases classified elsewhere; I95.9 Hypotension, unspecified; Z79.01 Long term (current) use of anticoagulants; Z79.4 Long term (current) use of insulin; Z91.030 Bee allergy status; Z91.041 Radiographic dye allergy status; Z91.013 Allergy to seafood; Z68.22 Body mass index [BMI] 22.0-22.9, adult; Z91.010 Allergy to peanuts
CPT/HCPCS: 36415; 71045; 74176; 76705; 80048; 80053; 80076; 80202; 80320; 81003; 81015; 82105; 82140; 82533; 82565; 82570; 83036; 83605; 83690; 83735; 83880; 83930; 84133; 84145; 84157; 84300; 84302; 84443; 84484; 84520; 84540; 85014; 85018; 85025; 85027; 85060; 85610; 85730; 86140; 86337; 86341; 87040; 87070; 87073; 87077; 87086; 87186; 87205; 89051; 93005; 95816; 99283; A9270-GY; G0480; J0692; J0696; J0744; J1885; J1940; J2354; J2405; J3370; J3490; P9047

== ENCOUNTER 2018-07-27 02:54 | Inpatient (IN) | payer BC ==
--- NOTE | 2018-07-27 03:10 | ED ---
Altered Mental Status - HPI Summary HPI Summary: HPI LIMITED DUE TO LEVEL 5 CAVEAT - ALTERED MENTAL STATUS AND CONFUSION This patient is a 58 year old F BIBA to [facility] with a chief complaint of altered mental status (confusion) that began at 2200 yesterday night. Patient is stating I am a new pair of pants in response to all questions. - History Of Current Complaint Stated Complaint: AMS Time Seen by Provider: 07/27/18 03:03 Hx Obtained From: Patient, EMS - Allergies/Home Medications Allergies/Adverse Reactions: Allergies Allergy/AdvReac Type Severity Reaction Status Date / Time bee venom protein (honey bee) Allergy Hives/Diff. Verified 07/27/18 03:11 Breathing/I tching Iodinated Contrast- Oral and Allergy Unknown Verified 07/27/18 03:11 IV Dye Reaction Details shellfish derived Allergy Anaphylatic Verified 07/27/18 03:11 Shock tramadol Allergy Shakes Verified 07/27/18 03:11 Tree Nuts Allergy Hives Verified 07/27/18 03:11 environmental/ fragrances Allergy Difficulty Uncoded 07/27/18 03:11 Breathing seafood Allergy Anaphylatic Uncoded 07/27/18 03:11 Shock Home Medications: Home Medications Acetaminophen [Acetaminophen Extra Strength] 500 mg PO Q6HR PRN 07/27/18 [ History Confirmed 07/27/18] Apixaban* [Eliquis] 2.5 mg PO DAILY 07/27/18 [History Confirmed 07/27/18] Calcium Carbonate CHEW TAB* [Tums*] 1,000 mg PO TID PRN 07/27/18 [History Confirmed 07/27/18] Cholecalciferol (Vitamin D3) [Vitamin D3] 2,000 units PO DAILY 07/27/18 [ History Confirmed 07/27/18] Furosemide 20 mg PO DAILY 07/27/18 [History Confirmed 07/27/18] Insulin Glargine,Hum.rec.anlog [Lantus Solostar 5x3 ML PENS] 18 units SUBCUT BEDTIME 07/27/18 [History Confirmed 07/27/18] Insulin Lispro [Humalog Kwikpen U-100] 0 - 20 units SUBCUT TID 07/27/18 [ History Confirmed 07/27/18] Lactulose 15 ml PO BID 07/27/18 [History Confirmed 07/27/18] Oxycodone HCl 2.5 mg PO BID 07/27/18 [History Confirmed 07/27/18] Spironolactone 100 mg PO BID 07/27/18 [History Confirmed 07/27/18] PMH/Surg Hx/FS Hx/Imm Hx Previously Healthy: No - PMHx LIMITED DUE TO LEVEL 5 CAVEAT - AMS AND CONFUSION Endocrine/Hematology History: Denies: Hx Diabetes Cardiovascular History: Denies: Hx Hypertension, Hx Pacemaker/ICD Respiratory History: Reports: Hx Asthma, Hx Seasonal Allergies, Other Respiratory Problems/Disorders GI History: Reports: Hx Cirrhosis, Hx Jaundice, Other GI Disorders - portal vein thrombosis, on eliquis since 11/2016 History: Reports: Hx Acute Renal Failure Denies: Hx Renal Disease Sensory History: Denies: Hx Contacts or Glasses, Hx Hearing Aid Opthamlomology History: Denies: Hx Contacts or Glasses Neurological History: Reports: Hx Seizures Psychiatric History: Reports: Hx Substance Abuse - Alcoholism Denies: Hx Panic Disorder - Surgical History Surgery Procedure, Year, and Place: EYE SURGERY - MUSCLES;. PLATE ON JAW FROM FX SEP 2017; Infectious Disease History: Denies: Hx of Known/Suspected MRSA, Traveled Outside the [place] in Last 30 Days - Family History Known Family History: Positive: Unknown - Pt is adopted - Social History Alcohol Use: None Hx Substance Use: No Substance Use Type: Reports: None Hx Tobacco Use: No Smoking Status (MU): Never Smoked Tobacco Review of Systems - ROS Summary Review of Systems Summary: ROS LIMITED DUE TO LEVEL 5 CAVEAT - AMS AND CONFUSION All Other Systems Reviewed And Are Negative: No Physical Exam - Summary Physical Exam Summary: PE LIMITED DUE TO LEVEL 5 CAVEAT - AMS AND CONFUSION Appearance: lethargic Skin: warm, dry, reflects adequate perfusion Head/face: normal Eyes: EOMI, MELONIE, yellow discoloration of the sclera ENT: normal Neck: supple, non-tender Respiratory: CTA, breath sounds present Cardiovascular: RRR, pulses symmetrical Abdomen: non-tender, soft Bowel: present Musculoskeletal: normal, strength/ROM intact Neuro: alert and confused Triage Information Reviewed: Yes Vital Signs Reviewed: Yes - Sarabjit Coma Scale Best Eye Response: 4 - Spontaneous Best Motor Response: 5 - Purposeful Movement Best Verbal Response: 4 - Confused Coma Scale Total: 13 Diagnostics - Laboratory Result Diagrams: 07/27/18 03:36 07/27/18 03:36 Lab Statement: Any lab studies that have been ordered have been reviewed, and results considered in the medical decision making process. - Radiology CXR Radiology Interpretation Completed By: ED Physician Summary of Radiographic Findings: CXR reveals, per ED physician, no acute disease. - CT Brain CT CT Interpretation Completed By: Radiologist Summary of CT Findings: Brain CT reveals, per radiologist, no acute intracranial pathology visualized. ED physician has reviewed this radiology report. - EKG 0350 Cardiac Rate: Tachycardia EKG Rhythm: Sinus Rhythm - [address] Segment: Normal Ectopy: None Summary of EKG Findings: An EKG taken at 0350 reveals sinus tachycardia at 106 BPM with no acute changes. Re-Evaluation - Re-Evaluation First Eval Re-Evaluation Time: 05:52 Change: Unchanged Comment: Discussed results and plan of care with patient and family Altered Mental Statu Course/Dx - Course Course Of Treatment: LEVEL 5 CAVEAT AMS AND CONFUSION. This patient is a 58 year old F BIBA to [facility] with a chief complaint of altered mental status ( confusion) that began at 2200 yesterday night. Patient is stating I am a new pair of pants in response to all questions. Physical Exam Findings: Yellow discolorations of the sclera. Alert and confused. An EKG taken at 0350 reveals sinus tachycardia at 106 BPM with no acute changes. CXR reveals, per ED physician, no acute disease. Brain CT reveals, per radiologist, no acute intracranial pathology visualized. Bloodwork and UA obtained. In the ED course the patient was given Ativan, lactulose, Rocephin, Haldol, Benadryl, and D5W. Consult with [facility] at 0542. They recommended patient be transferred to [facility]. Consult with Dr. Phil Mallory (hospitalist at [facility]) at 0558. They refused to accept the transfer of the patient and recommend admission at [facility]. Consult with Dr. Bentley (hospitalist) at 0603. She agrees to admit patient for evaluation. The patient is agreeable with this plan. - Diagnoses Differential Diagnosis/HQI/PQRI: CVA, Intracranial Bleed, Metabolic Disorder, Other - uti/cirrhosis liver/hepatic encephalopathy Provider Diagnoses: Hepatic encephalopathy, UTI (urinary tract infection), Cirrhosis of liver, Jaundice, Lactic acidosis - Provider Notifications Instructed by Provider To: Other - Consult with [facility] at 0542. They recommended patient be transferred to [facility]. Consult with Dr. Phil Mallory (hospitalist at [facility]) at 0558. They refused to accept the transfer of the patient and recommend admission at [facility]. Consult with Dr. Bentley (hospitalist) at 0603. She agrees to admit patient for evaluation. - Critical Care Time Critical Care Time: 30-74 min Discharge - Sign-Out/Discharge Documenting (check all that apply): Patient Departure - Admit to [facility] - Discharge Plan Condition: Stable Disposition: ADMITTED TO [facility] Referrals: Jose Luis Waller MD [Primary Care Provider] - - Billing Disposition and Condition Condition: STABLE Disposition: Admitted to [facility] - Attestation Statements Document Initiated by Scribe: Yes Documenting Scribe: Светлана Wu Provider For Whom Deon is Documenting (Include Credential): Jim Bustos MD Scribe Attestation: Светлана Medeiros, scribed for Jim Bustos MD on 07/27/18 at 0615. Scribe Documentation Reviewed: Yes Provider Attestation: The documentation as recorded by the Светлана kwong accurately reflects the service I personally performed and the decisions made by , Jim Bustos MD
[2018-07-27] MEDS ORDERED: Haloperidol INJ IV/IM* 5 MG/ML AMP IM ONE (03:36)
[2018-07-27] MEDS ORDERED: diPHENhydraMINE IV* 50 MG/ML 1 ml VIAL (BENADRYL) IM ONE (03:36)
[2018-07-27] MEDS ORDERED: LORazepam INJ* 2 MG/ML 1 ML VIAL IM ONE (03:37)
[2018-07-27] MEDS ORDERED: LORazepam INJ* 2 MG/ML 1 ML VIAL IV PUSH ONE (03:41)
[2018-07-27] MEDS ORDERED: diPHENhydraMINE IV* 50 MG/ML 1 ml VIAL (BENADRYL) IV ONE (03:42)
[2018-07-27 03:45] LABS: ABS Basophils 0 10^3/ul (0-0.2); ABS Eosinophils 0.1 10^3/ul (0-0.6); ABS Lymphocytes 1.3 10^3/ul (1.0-4.8); ABS Monocytes 0.6 10^3/ul (0-0.8); ABS Neutrophils 2.9 10^3/ul (1.5-7.7); ABS Nucleated RBC 0 10^3/ul; Eosinophil % 1.6 % (0-6); Hematocrit 26 % (35-47); Hemoglobin 9.4 g/dl (12.0-16.0); Lymphocyte % 25.7 % (25-47); Mean Corpuscular HGB Conc 36 g/dl (31-36); Mean Corpuscular Hemoglobin 36 pg (27-31); Mean Corpuscular Volume 101 fL (80-97); Mean Platelet Volume 7.8 um3 (7.4-10.4); Nucleated Red Blood Cells % 0; Platelet Count 109 10^3/ul (150-450); Red Blood Count 2.61 10^6/ul (4.00-5.40); Red Cell Distribution Width 20 % (10.5-15); White Blood Count 4.9 10^3/ul (3.5-10.8)
[2018-07-27 03:53] LABS: INR 1.76 (0.77-1.02)
[2018-07-27] MEDS ORDERED: D5W 1000 ML BAG* 1,000 ML IV SCH (04:00)
[2018-07-27 04:02] LABS: EGFR Non-African American 46.4 (>60)
--- NOTE | 2018-07-27 05:10 | RAD ---
EXAM: CT Head Without Intravenous Contrast EXAM DATE/TIME: 07/27/2018 4:34 AM CLINICAL HISTORY: 58 years old, female; Condition or disease; Other: Renal failure/liver failure; Additional info: AMS TECHNIQUE: Axial computed tomography images of the head/brain without intravenous contrast. All CT scans at this facility use at least one of these dose optimization techniques: automated exposure control; mA and/or kV adjustment per patient size (includes targeted exams where dose is matched to clinical indication); or iterative reconstruction. COMPARISON: CT BRAIN WO 09/09/2017 1:46 PM FINDINGS: Brain: There is mild diffuse cerebral atrophy present, consistent with this patient's age. Ventricles: Normal. No ventriculomegaly. Bones/joints: Normal. No acute fracture. Sinuses: Normal as visualized. No acute sinusitis. Mastoid air cells: Normal as visualized. No mastoid effusion. Soft tissues: There is a left frontal lipoma noted. IMPRESSION: No acute intracranial pathology visualized. To contact [facility] with a general question: [facility] - [phone] For direct physician to physician contact: Physician Hotline - [phone] [facility] ([facility] Facility ID #[id number])
[2018-07-27 05:12] LABS: Urine Appearance Cloudy; Urine Blood Negative (Negative); Urine Color Amber; Urine Ketones Negative (Negative); Urine Protein Negative (Negative); Urine Red Blood Cell Trace(0-2/hpf) (Absent); Urine Specific Gravity 1.016 (1.010-1.030); Urine Urobilinogen Negative (Negative); Urine White Blood Cell 2+(11-20/hpf) (Absent)
[2018-07-27] MEDS ORDERED: cefTRIAXone(*) 1 GM in NS 0.9% 50 ML* 50 ML IVPB ONE (06:01)
--- NOTE | 2018-07-27 08:14 | RAD ---
INDICATION: Altered mental status COMPARISON: Most recent comparison chest x-ray is dated May 27, 2018 TECHNIQUE: Single AP portable view of the chest was obtained. FINDINGS: Image quality is compromised due to the relative inferiority of a portable chest x-ray. The heart and mediastinum exhibit normal size and contour. The lungs are grossly clear. There is no evidence of a large pleural effusion. Visualized bones are normal for the patient's age. IMPRESSION: No radiographic evidence for acute cardiopulmonary abnormality on this portable chest x-ray. R1NF
[2018-07-27] MEDS ORDERED: Dextrose 50% Syringe 50 ML* 25 GM/50 ML SYRINGE IV PUSH PRN (08:15)
[2018-07-27] MEDS ORDERED: Phytonadione IV (Adult)* 10 MG/ML 1 ML AMP IV ONE (08:43)
[2018-07-27] MEDS ORDERED: Phytonadione Oral Solution* 5 MG/25 ML UDC NG TUBE ONE (08:45)
[2018-07-27] MEDS ORDERED: Lactulose 300 ML for PR* 10 GM/15 ML BTL PR SCH (09:00)
--- NOTE | 2018-07-27 10:11 | RAD ---
HISTORY: Liver cirrhosis, ascites, portal HTN COMPARISONS: May 24, 2018 TECHNIQUE: Multiple transverse and longitudinal ultrasound images were obtained of the abdomen using grayscale, color Doppler, and spectral Doppler imaging. FINDINGS: LIVER: Liver is diffusely coarse in echotexture without appreciable nodularity or mass. There is normal hepatopedal flow of the portal vein on Doppler imaging. BILIARY TREE: There is no intrahepatic or extrahepatic biliary dilatation. The common duct measures 0.3 cm. GALLBLADDER: The gallbladder is distended. A 0.8 cm echogenic shadowing focus consistent with a gallstone is noted.. There is no gallbladder wall thickening, pericholecystic fluid, or sonographic Leblanc sign. PANCREAS: The head of the pancreas is unremarkable. The tail of the pancreas is not well visualized secondary to overlying bowel gas. SPLEEN: The spleen is homogeneously enlarged. The spleen measures 16.7 x 4.7 x 6.7 cm. RIGHT KIDNEY: The right kidney is normal in shape, size, contour, and echogenicity. There is no hydronephrosis or nephrolithiasis. The right kidney measures 9.9 x 4.8 x 5.2 cm. LEFT KIDNEY: The left kidney is normal in shape, size, contour, and echogenicity. There is no hydronephrosis or nephrolithiasis. The left kidney measures 10.1 x 4.1 x 3.8 cm. AORTA AND IVC: The aorta and IVC are unremarkable. Normal arterial and venous waveforms are identifiable on spectral Doppler imaging. FLUID: There is a small amount of ascites. OTHER FINDINGS: None. IMPRESSION: 1. COARSE ECHOTEXTURE TO THE LIVER WITHOUT NODULARITY OR FOCAL HEPATIC PARENCHYMAL MASS. 2. SPLENOMEGALY. 3. SMALL AMOUNT OF ASCITES. 4. CHOLELITHIASIS.
[2018-07-27] MEDS: NS 0.9% 1000 ML* 1,000 ML IV SCH ×2 (10:45→20:21)
[2018-07-27] MEDS: Insulin LISPRO* 1 UNITS UNIT SUBCUT SCH ×4 (10:53→22:04)
--- NOTE | 2018-07-27 11:32 | HP ---
CC: Dr. Waller; Dr. Cohen; Dr. Wright; [facility] watch hairspring assembler, Dr. Jerson Machado. HISTORY AND PHYSICAL: DATE OF ADMISSION: 07/27/18 TIME OF EVALUATION: 7:40 a.m. PRIMARY CARE PROVIDER: Dr. Waller. STRATEGIC PARTNERSHIP MANAGER: Dr. Cohen. ACCT EXEC: Dr. Wright. MOLD MAKER: Dr. Jerson Machado. CHIEF COMPLAINT: "She was confused" as per her . HISTORY OF PRESENT ILLNESS: Mrs. Betts is a 58-year-old with a complex past medical history that in cludes liver cirrhosis, prior history of alcohol abuse, seizures, possible hepatorenal syndrome, port al vein thrombosis, SBP, Klebsiella pneumoniae, urinary tract infection, insulin-dependent diabetes, who presents to the emergency room with complaints of confusion. The patient was admitted to [facility] from 05/24/18 to 06/02/18. It was a complex admission where the josefina ent presented with abdominal pain and was found to have Klebsiella UTI and SBP. Despite antibiotics therapy the patient's condition continued to decline. She was also diagnosed with insulin-dependent diabetes on the admission and as her critical picture continued to decline, the possibility of hepato renal syndrome was entertained and she was started on midodrine, octreotide and albumin. Despite all these efforts, her clinical picture and laboratory values continued to decline and she had a MELD sc ore as high as 39. She was accepted in transfer to [facility] on 06/01/18 and as per her husban d, she was admitted for 4 weeks. He states that on discharge she was doing well, her weight was down to 90 pounds, her anasarca was much improved and her mental status was at baseline. The patient is o n the liver transplant list and awaiting to be called by [facility]. The patient's states that after discharge she was doing well until yesterday. She woke up in her usual state of health, was able to eat breakfast, did some light work around the house. The [facility] band describes that she had chilly for lunch and she was doing well during the afternoon and around 8 :30 when he went to give her her bedtime dose of insulin, he noted that she was confused and making s tatements that did not make sense. He gave her an extra dose of 15 mL of lactulose and called [facility] and was advised to bring her to the emergency room. In the ED, she was very agitated, pulling at cords, pulling her IV, restless, and repeating statement s that made no sense. The patient required Ativan and Haldol, so medical interventions could be perf ormed. In the emergency room, she received 1 dose of ceftriaxone. At the time of my evaluation, she is sedated. [facility] was consulted but the patient was not accepted in transfer, and the recommendation wa s to treat her hepatic encephalopathy at our facility, so the hospitalist service was called for admi ssion. The patient's denies fever. There was no nausea, no vomiting, no signs of GI bleed, no thorne e in her usual chronic pain. PAST MEDICAL HISTORY: 1. End-stage liver disease, on the transferring list at [facility]. 2. Liver cirrhosis. 3. Prior history of alcohol abuse, quit 2 years ago. 4. Recently diagnosed insulin-dependent diabetes. 5. Recent admission with complex presentation including acute liver failure. 6. Sepsis secondary to SBP, Klebsiella UTI, SAVANNAH with possible hepatorenal syndrome who presented to the emergency room with confusion, found to have hepatic encephalopathy. MEDICATIONS: 1. Acetaminophen 500 mg p.o. q.6 hours p.r.n. pain or fever. 2. Apixaban 2.5 mg p.o. daily. 3. Calcium carbonate 1000 mg p.o. t.i.d. as needed for heartburn. 4. Vitamin D3 2000 units p.o. daily. 5. Furosemide 20 mg p.o. daily. 6. Lantus 18 units subcutaneously at bedtime. 7. Insulin lispro sliding scale 0 to 20 units subcutaneously t.i.d. 8. Lactulose 15 mL p.o. b.i.d. 9. Oxycodone 2.5 mg p.o. b.i.d. 10. Spironolactone 100 mg p.o. b.i.d. ALLERGIES: BEE VENOM, IODINATED CONTRAST, SHELLFISH, TRAMADOL, TREE NUTS, FRAGRANCES, MARKERS and SE AFOOD. Please note that the patient actually has described anaphylactic shock with SHELLFISH, SEAFOO D, and MARKERS. FAMILY HISTORY: I am unable to obtain from the patient at this time, but as per records she was adop alonzo. SOCIAL HISTORY: I am unable to obtain from the records, but as per records she is a recovering alcoh olic who has not had a drink in more than 2 years. She does not smoke. There is no history of drug use as per and he is her surrogate decision maker, Jessica Betts, phone number is [phone]. REVIEW OF SYSTEMS: I am unable to obtain from the patient at this time. PHYSICAL EXAMINATION GENERAL: The patient is a frail appearing lady that appears other than stated age, lying in the ED s tretcher in no acute distress, sedated. VITAL SIGNS: Temperature 97.8, heart rate is 73, respiratory rate is 18, oxygen saturation is 100% o n room air, blood pressure is 160/66. HEENT: Pupils are equal. There is significant scleral icterus and jaundice. Moist mucous membranes. CHEST: Breath sounds bilaterally, no added sounds. CVS: Normal S1, S2. Regular rate and rhythm with a systolic murmur. ABDOMEN: Soft, nondistended, nontender. Bowel sounds are present. EXTREMITIES: No edema. NEUROLOGIC: She is sedated at this time, does not respond to voice or touch. LABORATORY AND IMAGING DATA: The patient had a CBC that showed WBC of 4.9, hemoglobin of 9.4, hemat ocrit 26, platelets of 109,000 with 60% neutrophils. INR is 1.7, aPTT 42. Chemistry showed sodium o f 134, potassium of 4.2, chloride of 101, bicarb 21, anion gap of 12, BUN 21, creatinine of 1.19, glu cose of 182, lactic acid of 2.9, calcium of 12.6, total bilirubin of 6.7, AST of 35, ALT of 17, alk p hos of 132, ammonia of 163, troponin of 0.01. CRP of 17.08. Urinalysis showed 1+ LE, 2+ WBCs, 1+ bacteria. Chest x-ray showed no radiographic evidence for acute cardiopulmonary abnormality and CT of the brain without contrast showed no acute intracranial pathology. ASSESSMENT AND PLAN: Mrs. Betts is a 58-year-old lady with a complex medical history that includes liver cirrhosis secondary to alcohol abuse, seizure disorder, recent complex admission for acute live r failure, sepsis secondary to spontaneous bacterial peritonitis and Klebsiella urinary tract infecti on, acute kidney injury with possible hepatorenal syndrome, newly diagnosed insulin-dependent diabete s, who presented to the emergency room with confusion, found to have hepatic encephalopathy. 1. Systemic inflammatory response syndrome versus severe sepsis. The patient meets systemic inflammatory response syndrome criteria with tachycardia and tachypnea and as she is immunosuppressive for liver disease, we should not expect her to mount a classic sepsis re sponse with leukocytosis. This inflammatory response may be secondary to her hepatic encephalopathy, but I am concerned that she may have another source of infection as spontaneous bacterial peritoniti s or urinary tract infection like she had in May 2018. The patient will be admitted to the intensive care unit. Due to her history of anasarca, she will no t receive the 30 mL/kg fluid bolus, but she will receive IV hydration and we are going to monitor her fluid status closely. She already received a dose of ceftriaxone in the emergency room. Blood and urine cultures were sent . I cannot detect ascites on her physical examination, but she is going to have an abdomen ultrasound a nd if there is fluid, this will be tapped for diagnostic purposes. The patient's lactic acid is elevated at 2.9 and we are going to repeat it. 2. Hepatic encephalopathy. No apparent precipitating factor at this time. The onset was very sudden last night. As per there are no signs of active GI bleed and/or infection. We are going to tap her ascites if the ultrasound shows some. She was empirically started on ceftria xone for possible spontaneous bacterial peritonitis. We are going to trend her H and H for a possibl e GI bleed. An NG tube will be placed as the patient is too sedated to take p.o. lactulose and we are going to tr end her ammonia. 3. Lactic acidosis, multifactorial in the setting of possible sepsis in the patient with liver cirrh osis and decreased lactic acid clearance. She will receive IV hydration and we are going to trend he r lactic acid. 4. Acute kidney injury. The patient had a creatinine of 1.7 on her transfer to [facility]. Her renal function returned to normal and is now starting to trend up again. It is unclear to me if this represents hepatorenal syndrome, acute kidney injury secondary to sepsis or just associated with her diuretic use as her hus band described that she has lost almost 40 pounds of fluid and on my physical examination she really does not show signs of fluid overload. 5. End-stage liver disease. The patient is on the transplant list at [facility], but as per ER records she was not accepted in transfer earlier today. We are going to stabilize her and reach out to [facility] again to s if they would reconsider taking her in transfer considering the complexity of her case. The patie nt's calculated MELD score today is 22 and the highest that we have on records was 39 prior to her tr ansfer to [facility]. 6. Hypercalcemia. May be secondary to dehydration and we will continue IV fluids. We will also check PTH intact and co ntinue her workup depending on that value. She is on vitamin D and calcium supplementation as outpat ient and I am going to hold those for now and we will check vitamin D-125 and 25 levels. 7. Insulin-dependent diabetes. The patient is n.p.o. for now. We are going to continue Lantus at a lower dose with a lispro sliding scale. 8. Coagulopathy. We are going to give her vitamin K and monitor her coags. 9. Portal vein thrombosis. We will continue Eliquis. 10. DVT prophylaxis. The patient has a score of 4 on DVT prophylaxis risk assessment guide and she is already on Eliquis and we will add SCDs. 11. Code status is full. TIME SPENT: Approximately 60 minutes of critical care time was spent to complete this admission. [id number]/[facility] #: [id number]
[2018-07-27] MEDS: Apixaban* 2.5 MG TAB PO SCH (11:36)
[2018-07-27] MEDS: RiFAXimin* 550 MG TAB FEED TUBE SCH ×2 (11:37→22:03)
--- NOTE | 2018-07-27 11:53 | RAD ---
HISTORY: confirm NGT placement COMPARISONS: July 27, 2018 VIEWS: 1: frontal AP view of the chest at 11:20 AM FINDINGS: LINES AND TUBES: A gastric tube is noted. The side port is in a prepyloric position. The tip is indeterminate with respect to the pylorus. CARDIOMEDIASTINAL SILHOUETTE: The cardiomediastinal silhouette is normal for portable technique. PLEURA: The costophrenic angles are sharp. No pleural abnormalities are noted. LUNG PARENCHYMA: The lungs are clear. ABDOMEN: The upper abdomen is clear. There is no subphrenic gas. BONES AND SOFT TISSUES: No bone or soft tissue abnormalities are noted. IMPRESSION: LINES AND TUBES ABOVE. NO ACTIVE CARDIOPULMONARY DISEASE.
--- NOTE | 2018-07-27 12:00 | CONSULT ---
Consult Consult: Consultation Note -- Critical Care Requesting Physician: Dr Finney Reason for consult: hepatic encephalopathy Limitations in history/physical: encephalopathy, history from chart and hospitalist Date of consult: 07/27/2018 HPI: 58y F w/pmhx of asthma, Cirrhosis 2/2 to alcohol (on transplant list at [facility]), portal vein thrombosis on eliquis, Grade 1 varices, CKD, h/o alcohol abuse in past, DM; recent admission to [facility] 04/2018 for SAVANNAH/hepatorenal syndrome, new DM, suspected SBP, klebsiella UTI, sepsis with transfer to [facility] and recently discharged after a 4 week stay. She is down on weight since last discharge. Comes to ER after she was more confused and had mental status changes last night, brought in by . In ER, lethargic, responding with single word answers only. CXR clear, CT brain without acute pathology. She was given Ativan, started on rectal lactulose, ceftriaxone IV. She is now in ICU, lethargic but responsive to painful stimuli. Ammonia level of 163 on admission, with wbc of 4.9, hg 9, CR stable, mild elevated Lactic acid. Urinalysis demonstrated mild LE/WBC/bacteria. WE inserted an NGT at bedside to start lactulose tx. ROS: limited due to encephalopathy PMHx: asthma, Cirrhosis 2/2 to alcohol (on transplant list at [facility]), portal vein thrombosis on eliquis, Grade 1 varices, CKD, h/o alcohol abuse in past, DM ; recent admission to [facility] 04/2018 for SAVANNAH/hepatorenal syndrome, new DM, suspected SBP, klebsiella UTI, sepsis with transfer to [facility] and recently discharged after a 4 week stay PSHx: eye surgery, jaw platting in past Family History: unknown (adopted) Social History: Alcohol-past use, Smoking-none, Drug use-none Allergies: Allergies Allergy/AdvReac Type Severity Reaction Status Date / Time bee venom protein (honey bee) Allergy Hives/Diff. Verified 07/27/18 03:11 Breathing/I tching Iodinated Contrast- Oral and Allergy Unknown Verified 07/27/18 03:11 IV Dye Reaction Details shellfish derived Allergy Anaphylatic Verified 07/27/18 03:11 Shock tramadol Allergy Shakes Verified 07/27/18 03:11 Tree Nuts Allergy Hives Verified 07/27/18 03:11 environmental/ fragrances Allergy Difficulty Uncoded 07/27/18 03:11 Breathing markers Allergy Anaphylatic Uncoded 07/27/18 08:08 Shock seafood Allergy Anaphylatic Uncoded 07/27/18 03:11 Shock Home Medications: Acetaminophen [Acetaminophen Extra Strength] 500 mg PO Q6HR PRN 07/27/18 [ History Confirmed 07/27/18] Apixaban* [Eliquis] 2.5 mg PO DAILY 07/27/18 [History Confirmed 07/27/18] Calcium Carbonate CHEW TAB* [Tums*] 1,000 mg PO TID PRN 07/27/18 [History Confirmed 07/27/18] Cholecalciferol (Vitamin D3) [Vitamin D3] 2,000 units PO DAILY 07/27/18 [ History Confirmed 07/27/18] Furosemide 20 mg PO DAILY 07/27/18 [History Confirmed 07/27/18] Insulin Glargine,Hum.rec.anlog [Lantus Solostar 5x3 ML PENS] 18 units SUBCUT BEDTIME 07/27/18 [History Confirmed 07/27/18] Insulin Lispro [Humalog Kwikpen U-100] 0 - 20 units SUBCUT TID 07/27/18 [ History Confirmed 07/27/18] Lactulose 15 ml PO BID 07/27/18 [History Confirmed 07/27/18] Oxycodone HCl 2.5 mg PO BID 07/27/18 [History Confirmed 07/27/18] Spironolactone 100 mg PO BID 07/27/18 [History Confirmed 07/27/18] Tele: sinus tachy Vitals: Vital Signs Temp 97.4 F 07/27/18 10:18 Pulse 97 07/27/18 11:00 Resp 16 07/27/18 11:00 BP 160/91 07/27/18 11:00 Pulse Ox 100 07/27/18 11:00 Intake & Output 07/26/18 07/27/18 07/27/18 18:59 06:59 18:59 Intake Total 50 Balance 50 Weight 43.091 kg Intake: IV Fluids 50 O2/Vent: RA Infusions: NS Current Medications: Apixaban (Eliquis) 2.5 mg PO DAILY [facility] Last Admin: 07/27/18 11:36 Dose: 2.5 mg Dextrose (D50w Syringe 50 Ml*) 12.5 gm IV PUSH .FOR FS < 60 - SS PRN PRN Reason: FS < 60 Sodium Chloride (Ns 0.9% 1000 Ml*) 1,000 mls @ 100 mls/hr IV .per rate [facility] Last Admin: 07/27/18 10:45 Dose: 100 mls/hr Ceftriaxone Sodium 1 gm/ (Sodium Chloride) 50 mls @ 200 mls/hr IVPB Q24H [facility] Insulin Glargine (Lantus(*)) 10 units SUBCUT BEDTIME [facility] Insulin Human Lispro (Humalog*) 0 units SUBCUT FS Q4 ICU [facility]; Protocol Last Admin: 07/27/18 10:53 Dose: 3 units Lactulose (Lactulose*) 30 ml NG TUBE Q6H [facility] Last Admin: 07/27/18 11:36 Dose: 30 ml Rifaximin (Xifaxan*) 550 mg FEED TUBE BID [facility] Last Admin: 07/27/18 11:37 Dose: 550 mg Physical Exam: General: lethargic, poor arousability, responds verbally/physically with painful stimuli, not alert, no distress Head: normocephalic, atraumatic HEENT: no pallor, + icterus, DRY mucous membranes Neck: soft, supple, no jvd, no stridor CVS: tachy, regular, no murmur Resp: bilateral air entry, no rhales, no wheeze, no rhonchi, no acc muscle use Abdomen: soft, nontender, mild distended, bowel sounds present Ext: pulses+, warm, no edema Skin: intact Neuro: lethargic, not alert, responds to painful stimuli, moves all ext with painful stimuli and moves to inserting NGT, difficult to assess. Pupils 2-3mm and reactive bilaterally. Labs: Laboratory Results - last 24 hr 07/27/18 07/27/18 07/27/18 03:36 03:36 03:36 WBC 4.9 RBC 2.61 L Hgb 9.4 L Hct 26 L MCV 101 H MCH 36 H MCHC 36 RDW 20 H Plt Count 109 L MPV 7.8 Neut % (Auto) 60.1 Lymph % (Auto) 25.7 [place] % (Auto) 12.1 H Eos % (Auto) 1.6 Baso % (Auto) 0.5 Absolute Neuts (auto) 2.9 Absolute Lymphs (auto) 1.3 Absolute Monos (auto) 0.6 Absolute Eos (auto) 0.1 Absolute Basos (auto) 0 Absolute Nucleated RBC 0 Nucleated RBC % 0 INR (Anticoag Therapy) 1.76 H APTT 42.3 H Sodium 134 L Potassium 4.2 Chloride 101 Carbon Dioxide 21 L Anion Gap 12 H BUN 21 Creatinine 1.19 H Est GFR ( Amer) 56.2 Est GFR (Non-Af Amer) 46.4 BUN/Creatinine Ratio 17.6 Glucose 182 H POC Glucose (mg/dL) Lactic Acid Calcium 12.6 H Total Bilirubin 6.70 H AST 35 ALT 17 Alkaline Phosphatase 132 H Ammonia Troponin I 0.01 C-Reactive Protein 17.08 H Total Protein 7.5 Albumin 3.4 Globulin 4.1 H Albumin/Globulin Ratio 0.8 L Lipase 11 25-OH Vitamin D Total PTH Intact Calcium (PTH Intact) Urine Color Urine Appearance Urine pH Ur Specific Felch Urine Protein Urine Ketones Urine Blood Urine Nitrate Urine Bilirubin Urine Urobilinogen Ur Leukocyte Esterase Urine WBC (Auto) Urine RBC (Auto) Urine Bacteria Urine Glucose 07/27/18 07/27/18 07/27/18 03:36 04:53 05:06 WBC RBC Hgb Hct MCV MCH MCHC RDW Plt Count MPV Neut % (Auto) Lymph % (Auto) Colleton % (Auto) Eos % (Auto) Baso % (Auto) Absolute Neuts (auto) Absolute Lymphs (auto) Absolute Monos (auto) Absolute Eos (auto) Absolute Basos (auto) Absolute Nucleated RBC Nucleated RBC % INR (Anticoag Therapy) APTT Sodium Potassium Chloride Carbon Dioxide Anion Gap BUN Creatinine Est GFR ( Amer) Est GFR (Non-Af Amer) BUN/Creatinine Ratio Glucose POC Glucose (mg/dL) Lactic Acid 2.9 H* Calcium Total Bilirubin AST ALT Alkaline Phosphatase Ammonia 163 H Troponin I C-Reactive Protein Total Protein Albumin Globulin Albumin/Globulin Ratio Lipase 25-OH Vitamin D Total PTH Intact Calcium (PTH Intact) Urine Color Mague Urine Appearance Cloudy Urine pH 6.0 Ur Specific Felch 1.016 Urine Protein Negative Urine Ketones Negative Urine Blood Negative Urine Nitrate Negative Urine Bilirubin Negative Urine Urobilinogen Negative Ur Leukocyte Esterase 1+ A Urine WBC (Auto) 2+(11-20/hpf) A Urine RBC (Auto) Trace(0-2/hpf) Urine Bacteria 1+ A Urine Glucose Negative 07/27/18 07/27/18 07/27/18 10:00 10:00 10:00 WBC RBC Hgb Hct MCV MCH MCHC RDW Plt Count MPV Neut % (Auto) Lymph % (Auto) [place] % (Auto) Eos % (Auto) Baso % (Auto) Absolute Neuts (auto) Absolute Lymphs (auto) Absolute Monos (auto) Absolute Eos (auto) Absolute Basos (auto) Absolute Nucleated RBC Nucleated RBC % INR (Anticoag Therapy) APTT Sodium Potassium Chloride Carbon Dioxide Anion Gap BUN Creatinine Est GFR ( Amer) Est GFR (Non-Af Amer) BUN/Creatinine Ratio Glucose POC Glucose (mg/dL) Lactic Acid 2.1 H* Calcium Total Bilirubin AST ALT Alkaline Phosphatase Ammonia Troponin I C-Reactive Protein Total Protein Albumin Globulin Albumin/Globulin Ratio Lipase 25-OH Vitamin D Total 41.2 PTH Intact < 1.0 L Calcium (PTH Intact) 11.7 H Urine Color Urine Appearance Urine pH Ur Specific Felch Urine Protein Urine Ketones Urine Blood Urine Nitrate Urine Bilirubin Urine Urobilinogen Ur Leukocyte Esterase Urine WBC (Auto) Urine RBC (Auto) Urine Bacteria Urine Glucose 07/27/18 10:35 WBC RBC Hgb Hct MCV MCH MCHC RDW Plt Count MPV Neut % (Auto) Lymph % (Auto) Colleton % (Auto) Eos % (Auto) Baso % (Auto) Absolute Neuts (auto) Absolute Lymphs (auto) Absolute Monos (auto) Absolute Eos (auto) Absolute Basos (auto) Absolute Nucleated RBC Nucleated RBC % INR (Anticoag Therapy) APTT Sodium Potassium Chloride Carbon Dioxide Anion Gap BUN Creatinine Est GFR ( Amer) Est GFR (Non-Af Amer) BUN/Creatinine Ratio Glucose POC Glucose (mg/dL) 252 H Lactic Acid Calcium Total Bilirubin AST ALT Alkaline Phosphatase Ammonia Troponin I C-Reactive Protein Total Protein Albumin Globulin Albumin/Globulin Ratio Lipase 25-OH Vitamin D Total PTH Intact Calcium (PTH Intact) Urine Color Urine Appearance Urine pH Ur Specific Felch Urine Protein Urine Ketones Urine Blood Urine Nitrate Urine Bilirubin Urine Urobilinogen Ur Leukocyte Esterase Urine WBC (Auto) Urine RBC (Auto) Urine Bacteria Urine Glucose Imaging: cxr 07/26 - no infitlrate cxr 07/27 - ngt in stomach, no infitlrate+ Ct brain 07/26 - no acute pathology Assessment: 58y F w/pmhx of asthma, Cirrhosis 2/2 to alcohol (on transplant list at [facility]), portal vein thrombosis on eliquis, Grade 1 varices, h/o alcohol abuse in past, DM; recent admission to [facility] 04/2018 for SAVANNAH/hepatorenal syndrome, new DM, suspected SBP, klebsiella UTI, sepsis with transfer to [facility] and recently discharged after a 4 week stay. She is down on weight since last discharge. Comes to ER after she was more confused and had mental status changes last night, brought in by . In ER, lethargic, responding with single word answers only. CXR clear, CT brain without acute pathology. She was given Ativan, started on rectal lactulose, ceftriaxone IV. -Encephalopathy, suspected hepatic; unclear precipitant -Metabolic acidosis -r/o UTI -anemia -thrombocytopenia -Mild coagulopathy 2/2 to liver disease Portal vein thrombosis alcoholic cirrhosis DM Plan: Neuro- encephalopathic; Ct brain negative. responsive to pain and verbalizes. doesnt follow commands. noted elevated ammonia. unclear if any other ppt'ant. no infectious source, minimal ascites, no infiltrates. pending urinalysis. agree with lactulos q6h and rifaxamin via ngt. neurochecks q4h. asp prec. delirium prec. CVS- BP stable. appears euvolemic, no edema/congestion. cont NS 100cc/hr. No clear infectious etiology, empiric abx. cotn apixiban for portal vein thrombosis. Resp- on RA. asp prec. CXR without infitlrate. HOB elevated. ID- wbc 4.9, afebrile. cxr clear. urinalysis with mild LE/bacteria, pendign urine culture. empiric ceftriaxone for SBP/UTI. not much ascites on abd ultrasound. GI- NPO. NGT in place. LActuolose and rifaxamine. Asp prec. suspect hepatic encephalopathy, unclear trigger, w/u for infectious cause vs hypovolemia. check ammonia level in AM. Abd ultrasound without much ascites for tap. Renal- Cr 1.1, mild acidosis. K okay. cont NS infusion. ALbumin may be needed PRN. leija if needed. Heme- hg stable, anemia. thrombocytopenia 100-110s. cont apixiban for portal vein thrombosis. coaguloaathic from AC +/- liver disease. Endo- fingersticks q4h; on lantus sq. Musculsk- pressure ulcer prophylaxis. Bedrest. Wounds- none Nutrition- NPO DVT prophylaxis: SCD, apixiban GI prophylaxis: pepcid Central Line: no Arterial Line: no Leija Cathetor: no Disposition: ICU Code Status: full code Total Critical Care time is 40 minutes, excluding procedures/teaching Kwasi Mena MD Electrical Engineering Designer (Electronically Signed)
[2018-07-27] MEDS ORDERED: Metoprolol Tartrate IV* 1 MG/ML 5 ML VIAL IV PRN (16:38)
[2018-07-27] MEDS ORDERED: Labetalol IV* 5 MG/ML 20 ML VIAL ONE (16:45)
[2018-07-27] MEDS ORDERED: hydrALAZINE IV* 20 MG/ML VIAL IV SLOW PU ONE (17:34)
[2018-07-27] MEDS: Haloperidol INJ IV/IM* 5 MG/ML AMP IV SLOW PU PRN (19:01)
[2018-07-27] MEDS: Insulin GLARGINE(*) 1 UNITS UNIT SUBCUT SCH (22:03)
--- NOTE | 2018-07-27 23:46 | CONS ---
CONSULTATION REPORT: DATE OF CONSULT: 07/27/18 REQUESTING PROVIDER: Dr. Mena. 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 HISTORY OF PRESENT ILLNESS: This is a 58-year-old decompensated cirrhotic that is known to me that I see in the office who is actually listed for liver transplant at [facility], who presented to the emergency room last evening with confusion. The states that 2 days prior, she was in her normal state of health. He denies noticing any fever, chills, or rigors. He states the last evening, she started to have confusion, was not herself, did not know where she was, and was not able to follow commands, and he brought her to the emergency room. He did contact [facility] and they recommended evaluation in our ER. [facility] was also contacted in the emergency room and recommended treatment here for encephalopathy first. Recently, her diuretic dose had been scaled back with the thoughts of possible overdiuresis. Her abdomen has gone down quite a bit over the last few weeks. He states that she believes she was having at least 2 bowel movements a day, but she did not discuss this frequently with him. There has been no overt signs of GI bleeding. No melena, no hematochezia. He denies her complaining of any abdominal discomfort. On exam today, the exam and HPI is extremely limited secondary to altered mental status. The remainder of the HPI is limited by mental status. She recently had undergone an extended hospitalization at [facility] and at the end of this hospitalization was deemed an appropriate candidate to be listed for liver transplant. The previous note sodium was around 21. The remainder of the 14-point review of systems is grossly negative, but limited by patient altered mental status. PAST MEDICAL HISTORY: Cirrhosis secondary to alcohol, has been sober for many years at this point; portal vein thrombosis, on Eliquis; CKD; diabetes mellitus ; Klebsiella UTI with sepsis. PAST SURGICAL HISTORY: Eye surgery and jaw plating in the past. HOME MEDICATIONS: Include: 1. Acetaminophen. 2. Apixaban. 3. Calcium. 4. Vitamin D. 5. Lasix 20 mg. 6. Lantus 18 units. 7. Insulin sliding scale. 8. Lactulose 15 mL p.o. b.i.d. 9. Oxycodone 2.5 mg b.i.d. 10. Spironolactone 100 mg, it is questioned if this is actually daily or b.i.d. in the office. I ordered it as daily. ALLERGIES: HONEY BEE, IV DYE, SHELL FISH, TRAMADOL, TREE NUTS, ENVIRONMENTAL FRAGRANCES including SOAP and HAND WASH, MARKERS, and SEAFOOD. FAMILY HISTORY: Unknown. She was adopted. SOCIAL HISTORY: Past alcohol use, but has been sober for many years at this point. No smoking and no drug use. PHYSICAL EXAM: Vital Signs: Blood pressure is 164/92, pulse is 88, respiratory rate is 24. She is 99% on room air. In general, she is confused and icteric, overtly jaundiced. HEENT: Atraumatic, normocephalic. Pupils equal, round, and reactive to light. Conjunctivae are pink. The sclerae are icteric. Cardiovascular: Regular rate and rhythm. S1 and S2. Pulmonary Exam: Diminished at the bases with scant rales. Abdomen is soft. She has mild grimace on palpation, but otherwise bowel sounds are positive, minimal shifting dullness if any appreciated. Extremities: No clubbing, no cyanosis, no edema. Her skin exam is notable for poor skin turgor. Neuro Exam: There is asterixis. Unable to follow commands. DIAGNOSTIC STUDIES/LAB DATA: Hemoglobin is 9.4, WBC count is 4.9, platelet count is 109. INR is 1.76. Sodium is 134. Lactic acid on admission is 2.9, is now down to 1.8. Bilirubin is 6.7, magnesium 1.8, AST 35, ALT 17, alkaline phosphatase is 132, albumin is 3.4. She had a brain CT that was negative. She had a chest x-ray that showed no cardiopulmonary abnormality. Abdominal ultrasound revealed texture of the liver, splenomegaly, scant ascites and cholelithiasis. Her urine was 1+ leukocyte esterase, scant wbc's. ASSESSMENT AND PLAN: This is a 58-year-old female with alcoholic decompensated cirrhosis, who presents with hepatic encephalopathy. 1. Decompensated alcoholic cirrhosis with scant ascites and encephalopathy, attempt to see if there is enough fluid to tap to rule out spontaneous bacterial peritonitis. In addition, lactulose per rectum and through her NG tube is appropriate. I do not see any overt signs of blood loss. She is quite dry on clinical exam. I recommend gentle IV fluids. Perhaps this is over diuresis that is a precipitating cause, otherwise consider constipation and also rule out infection with blood cultures, urine cultures and attempt to obtain fluid if possible. If there is no improvement, would recommend touching base again with [facility] and consider transfer at that point that she is currently listed for transplant, have very low threshold to transfer this patient. Her current MELD sodium is 23. 2. Hepatic encephalopathy, lactulose and Xifaxan. Unclear inciting factor. We will observe at this point for signs of clinical infection and await culture data. 3. Status of liver transplantation on the list. [id number] #: [id number] MTDD
[2018-07-28] MEDS: Insulin LISPRO* 1 UNITS UNIT SUBCUT SCH ×6 (01:09→19:56)
[2018-07-28] MEDS: Haloperidol INJ IV/IM* 5 MG/ML AMP IV SLOW PU PRN ×3 (01:17→19:58)
[2018-07-28 05:41] LABS: Hematocrit 20 % (35-47); Hemoglobin 7.1 g/dl (12.0-16.0); Mean Corpuscular HGB Conc 35 g/dl (31-36); Mean Corpuscular Hemoglobin 36 pg (27-31); Mean Corpuscular Volume 102 fL (80-97); Mean Platelet Volume 7.7 um3 (7.4-10.4); Platelet Count 98 10^3/ul (150-450); Red Cell Distribution Width 19 % (10.5-15); White Blood Count 5.3 10^3/ul (3.5-10.8)
[2018-07-28 05:42] LABS: INR 1.67 (0.77-1.02)
[2018-07-28] MEDS ORDERED: LORazepam INJ* 2 MG/ML 1 ML VIAL IV PUSH ONE (05:48)
[2018-07-28] MEDS ORDERED: LORazepam INJ* 2 MG/ML 1 ML VIAL ONE (05:51)
[2018-07-28 05:52] LABS: EGFR Non-African American 49.8 (>60)
[2018-07-28] MEDS: Apixaban* 2.5 MG TAB PO SCH (07:24)
[2018-07-28] MEDS: RiFAXimin* 550 MG TAB FEED TUBE SCH ×2 (07:24→19:57)
[2018-07-28] MEDS: NS 0.9% 1000 ML* 1,000 ML IV SCH (07:29)
[2018-07-28] MEDS ORDERED: Famotidine TAB* 20 MG PO SCH (09:00)
[2018-07-28] MEDS ORDERED: cefTRIAXone(*) 1 GM in NS 0.9% 50 ML* 50 ML IVPB SCH (10:30)
[2018-07-28 11:32] LABS: Hematocrit 19 % (35-47); Hemoglobin 6.8 g/dl (12.0-16.0)
--- NOTE | 2018-07-28 12:30 | PN ---
Progress Note - Progress Note Date of Service: 07/28/18 Note: Progress Note -- Critical Care 24 hour events: -remains lethargic still; ngt in place; diarrhea 2/2 to lactulose+ -tmax 100 -restless, given haldol at night x1-2 - at bedside -making urine Tele: NSR Vitals: Vital Signs Temp 100.0 F 07/28/18 12:00 Pulse 86 07/28/18 12:01 Resp 20 07/28/18 12:01 BP 99/54 07/28/18 12:00 Pulse Ox 98 07/28/18 12:01 Intake & Output 07/27/18 07/28/18 07/28/18 18:59 06:59 18:59 Intake Total 369 1555 Output Total 0 500 Balance 369 1055 Weight 43.091 kg 40.8 kg Intake: IV Fluids 369 1555 NS 319 1555 Output: Urine 0 Liquid Stool 500 Other: Estimated Void Large Medium # Bowel Movements 2 Estimated Stool Amount Large # Voids 1 O2/Vent: RA Infusions: NS 100cc/hr Current Medications: Apixaban (Eliquis) 2.5 mg PO DAILY [facility] Last Admin: 07/28/18 07:24 Dose: 2.5 mg Dextrose (D50w Syringe 50 Ml*) 12.5 gm IV PUSH .FOR FS < 60 - SS PRN PRN Reason: FS < 60 Famotidine (Pepcid Tab*) 20 mg PO DAILY [facility] Last Admin: 07/28/18 07:24 Dose: 20 mg Haloperidol Lactate (Haldol Inj Iv/Im*) 5 mg IV SLOW PU Q6H PRN PRN Reason: severe Agitation Last Admin: 07/28/18 05:12 Dose: 5 mg Sodium Chloride (Ns 0.9% 1000 Ml*) 1,000 mls @ 100 mls/hr IV .per rate [facility] Last Admin: 07/28/18 07:29 Dose: 100 mls/hr Ceftriaxone Sodium 1 gm/ (Sodium Chloride) 50 mls @ 200 mls/hr IVPB Q24H [facility] Last Admin: 07/28/18 10:51 Dose: 200 mls/hr Insulin Glargine (Lantus(*)) 10 units SUBCUT BEDTIME [facility] Last Admin: 07/27/18 22:03 Dose: 10 units Insulin Human Lispro (Humalog*) 0 units SUBCUT FS Q4 ICU [facility]; Protocol Last Admin: 07/28/18 12:08 Dose: 1 units Lactulose (Lactulose*) 30 ml NG TUBE Q6H [facility] Last Admin: 07/28/18 07:25 Dose: 30 ml Metoprolol Tartrate (Lopressor Iv*) 5 mg IV Q6H PRN PRN Reason: for SBP>160 and/or HR>120 Last Admin: 07/27/18 16:52 Dose: 5 mg Rifaximin (Xifaxan*) 550 mg FEED TUBE BID [facility] Last Admin: 07/28/18 07:24 Dose: 550 mg Physical Exam: General: lethargic, poor arousability but only to tactile stimuli, says words but doesnt respond to questions, not alert, no distress Head: normocephalic, atraumatic HEENT: no pallor, + icterus, DRY mucous membranes Neck: soft, supple, no jvd, no stridor CVS: tachy intermittent, regular, no murmur Resp: bilateral air entry, no rhales, no wheeze, no rhonchi, no acc muscle use Abdomen: soft, nontender, mild distended, bowel sounds present Ext: pulses+, warm, no edema Skin: intact Neuro: lethargic, not alert, responds to painful stimuli, moves all ext with painful stimuli, moves spontaneosuly. Pupils 2-3mm and reactive bilaterally. Labs: Laboratory Results - last 24 hr 07/27/18 07/27/18 07/27/18 13:18 16:03 16:18 WBC RBC Hgb Hct MCV MCH MCHC RDW Plt Count MPV INR (Anticoag Therapy) Sodium Potassium Chloride Carbon Dioxide Anion Gap BUN Creatinine Est GFR ( Amer) Est GFR (Non-Af Amer) BUN/Creatinine Ratio Glucose POC Glucose (mg/dL) 163 H 118 H Lactic Acid 1.8 Calcium Total Bilirubin AST ALT Alkaline Phosphatase Ammonia Total Protein Albumin Globulin Albumin/Globulin Ratio Blood Type Crossmatch 07/27/18 07/27/18 07/28/18 21:57 22:30 01:02 WBC RBC Hgb Hct MCV MCH MCHC RDW Plt Count MPV INR (Anticoag Therapy) Sodium Potassium Chloride Carbon Dioxide Anion Gap BUN Creatinine Est GFR ( Amer) Est GFR (Non-Af Amer) BUN/Creatinine Ratio Glucose POC Glucose (mg/dL) 176 H 171 H Lactic Acid 3.1 H* Calcium Total Bilirubin AST ALT Alkaline Phosphatase Ammonia Total Protein Albumin Globulin Albumin/Globulin Ratio Blood Type Crossmatch 07/28/18 07/28/18 07/28/18 03:40 05:15 05:15 WBC 5.3 RBC 2.00 L Hgb 7.1 L Hct 20 L MCV 102 H MCH 36 H MCHC 35 RDW 19 H Plt Count 98 L MPV 7.7 INR (Anticoag Therapy) Sodium Potassium Chloride Carbon Dioxide Anion Gap BUN Creatinine Est GFR ( Amer) Est GFR (Non-Af Amer) BUN/Creatinine Ratio Glucose POC Glucose (mg/dL) 127 H Lactic Acid Calcium Total Bilirubin AST ALT Alkaline Phosphatase Ammonia 83 H Total Protein Albumin Globulin Albumin/Globulin Ratio Blood Type Crossmatch 07/28/18 07/28/18 07/28/18 05:15 05:15 05:15 WBC RBC Hgb Hct MCV MCH MCHC RDW Plt Count MPV INR (Anticoag Therapy) 1.67 H Sodium 138 Potassium 3.8 Chloride 111 Carbon Dioxide 19 L Anion Gap 8 BUN 20 Creatinine 1.12 H Est GFR ( Amer) 60.2 Est GFR (Non-Af Amer) 49.8 BUN/Creatinine Ratio 17.9 Glucose 137 H POC Glucose (mg/dL) Lactic Acid 3.1 H* Calcium 10.9 H Total Bilirubin 5.40 H AST 38 ALT 14 Alkaline Phosphatase 106 H Ammonia Total Protein 6.5 Albumin 2.9 L Globulin 3.6 Albumin/Globulin Ratio 0.8 L Blood Type Crossmatch 07/28/18 07/28/18 07/28/18 07:22 11:08 11:08 WBC RBC Hgb 6.8 L Hct 19 L MCV MCH MCHC RDW Plt Count MPV INR (Anticoag Therapy) Sodium Potassium Chloride Carbon Dioxide Anion Gap BUN Creatinine Est GFR ( Amer) Est GFR (Non-Af Amer) BUN/Creatinine Ratio Glucose POC Glucose (mg/dL) 155 H Lactic Acid Calcium Total Bilirubin AST ALT Alkaline Phosphatase Ammonia Total Protein Albumin Globulin Albumin/Globulin Ratio Blood Type A Positive Crossmatch See Detail 07/28/18 11:59 WBC RBC Hgb Hct MCV MCH MCHC RDW Plt Count MPV INR (Anticoag Therapy) Sodium Potassium Chloride Carbon Dioxide Anion Gap BUN Creatinine Est GFR ( Amer) Est GFR (Non-Af Amer) BUN/Creatinine Ratio Glucose POC Glucose (mg/dL) 169 H Lactic Acid Calcium Total Bilirubin AST ALT Alkaline Phosphatase Ammonia Total Protein Albumin Globulin Albumin/Globulin Ratio Blood Type Crossmatch Imaging: cxr 07/26 - no infitlrate cxr 07/27 - ngt in stomach, no infitlrate+ Ct brain 07/26 - no acute pathology Assessment: 58y F w/pmhx of asthma, Cirrhosis 2/2 to alcohol (on transplant list at [place]), portal vein thrombosis on eliquis, Grade 1 varices, h/o alcohol abuse in past, DM; recent admission to [facility] [place] 04/2018 for SAVANNAH/hepatorenal syndrome, new DM, suspected SBP, klebsiella UTI, sepsis with transfer to [facility] and recently discharged after a 4 week stay. She is down on weight since last discharge. Comes to ER after she was more confused and had mental status changes last night, brought in by . In ER, lethargic, responding with single word answers only. CXR clear, CT brain without acute pathology. She was given Ativan, started on rectal lactulose, ceftriaxone IV. -Encephalopathy, suspected hepatic; unclear precipitant -Metabolic acidosis -klebsiella UTI suspected, vs colonization -anemia -thrombocytopenia -coagulopathy 2/2 to liver disease Portal vein thrombosis alcoholic cirrhosis DM Plan: Neuro- encephalopathic; Ct brain negative. responsive to pain and verbalizes words but not to command. no change despite lactulose/rifaxamin. ammonia level has decreased. asp prec. limit haldol use, but not acutely agitated. unclear if any other ppt'ant. will treat UTI, dehydration. Cont lactulose q6h and rifaxamin via ngt. neurochecks q4h. asp prec. delirium prec. CVS- BP stable. Cont NS 100cc/hr. Making urine. no edema/congestion. Empiric abx. cont apixiban for portal vein thrombosis. Resp- on RA. asp prec. CXR without infitlrate. HOB elevated/asp prec ID- wbc 5, afebrile. cxr clear. Urine culture klebsiella growth, pending sensitivity. Cont Ceftriaxone (day#2). No sig ascites on abd ultrasound. GI- NPO. NGT in place. LActuolose and rifaxamine q6h. Asp prec. suspect hepatic encephalopathy, unclear trigger, w/u for infectious cause vs hypovolemia. Ammonia decreasing. Portal vein appears patent on abd US, cont apixiban. -discussed wtih GI, given no improvement so far, joe a transplant candidate on list, will call [facility] Diaz in [facility] for possible transfer since they know her well. Renal- Cr 1.1, mild nongap acidosis, LA back to 3. K normal. will cont NS 100cc/ hr. holding aldactone for now. Albumin may be needed PRN, but last albumin 3.5. Heme- drop in hg to 7.1, 6.8. transfuse 1 prbc only for now, hemodyn stable. check fobt. plt 90s, INR 1.6. cont apixiban for portal vein thrombosis. until true bleeding ruled out. stool looks yellow from lactulose, no gross blood noted. coaguloathic from AC +/- liver disease. Endo- fingersticks q4h; on lantus sq. Musculsk- pressure ulcer prophylaxis. Bedrest. Wounds- none Nutrition- NPO DVT prophylaxis: SCD, apixiban GI prophylaxis: pepcid Central Line: no Arterial Line: no Velez Cathetor: no Disposition: ICU Code Status: full code Total Critical Care time is 40 minutes, excluding procedures/teaching Kwasi Mena MD Drier Helper (Electronically Signed)
--- NOTE | 2018-07-28 16:13 | PN ---
Progress Note - Progress Note Date of Service: 07/28/18 Note: Patient is currently with poor mental status, but is holding her airway with strong cough. She is on Room Air, sat 100%, RR upper teens to low 20s. No respiratory distress. She starts to open her eyes, moves all extremities spontaneously. HR is 80s, BP 110-130 sysotlic. She is not on pressors, only IV fluid infusion. Over the past 12 hours has show some increased eye opening and responsiveness but slow compared to the past 24-48 hours. Overall she is hemodynamically stable and currently stable from a respiratory point of view, not requiring supplemental oxygen or further respiratory support. She may be a suitable candidate for monitoring on a medical floor with close nursing or even a safety monitoring. Her encephalopathy has remained stable or slightly improving. She has required 1-2 doses of haloperidol over last night but none further in the daytime 07/28. She may be relatively safe for transfer to [facility] to a medical floor and re-evaluation upon arrival by a physician. Kwasi Mena Chain Puller
[2018-07-28 18:59] LABS: Hematocrit 25 % (35-47); Hemoglobin 8.7 g/dl (12.0-16.0)
[2018-07-28] MEDS: Insulin GLARGINE(*) 1 UNITS UNIT SUBCUT SCH (19:57)
[2018-07-28 20:00] VITALS: BP 137/68
--- NOTE | 2018-07-29 12:10 | DS ---
Discharge Summary Patient Name: Nicole Betts Date of Admission: 07/27/2018 Date of Discharge: 07/28/2018 Attending: Dr Kwasi Mena (lens generating machine tender) Consultants: Dr Spencer Cohen (Medical Appliance Maker) Admitting Diagnoses: 1) Hepatic Encephalopathy 2) Acute decompensated Cirrhosis 3) Hypovolemia Discharge Diagnoses: 1) Hepatic Encephalopathy 2) Acute decompensated Cirrhosis 3) Hypovolemia 4) Urinary Track infection with Klebsiella 5) Anemia HPI/Hospital Course: 58y F w/pmhx of asthma, Cirrhosis 2/2 to alcohol (on transplant list at [facility]) , portal vein thrombosis on eliquis, Grade 1 varices, CKD, h/o alcohol abuse in past, DM; recent admission to [facility] [place] 04/2018 for SAVANNAH/hepatorenal syndrome, new DM, suspected SBP, klebsiella UTI, sepsis with transfer to [facility] and recently discharged after a 4 week stay. She is down on weight since last discharge. Comes to ER after she was more confused and had mental status changes last night, brought in by . In ER, lethargic, responding with single word answers only. CXR clear, CT brain without acute pathology. She was given Ativan, started on rectal lactulose, ceftriaxone IV. She had elevated ammonia level of 163 on admission. On Consultation she appeared to be dehydrated , with noted findings of significant weight loss from diuresis from previous hospitalization in [place], with continued diuretic use. She did not appear toxic looking. She was started on IV fluids. We inserted an NGT and started lactulose and rifaxamin. Empric ceftriaxone was continued. Over the next 24 hours, she started to show some improvement with more eye opening but not able to follow all commands, but stable from a respiratory and hemodynamic standpoint. Ammonia level decreased to 83. A urine culture came back positive for klebsiella but pending sensitivity. On 07/28 she did have a drop in hg to 7.1 , which on repeat was 6.8, but no clear bleeding noted anywhere, so she was transfused 1 unit prbc. Discussion with her Medical Appliance Maker, Dr Cohen, was had and given her slow improvement in 24 hours and her status of being on a liver transplant list it was advised to discuss her case with her transplant center [facility]. We contact them, and after discussion of her status and all the possibilities of encephalopathy being covered with her they accepted her for transfer for optimization and further management. She was deemed stable from a respiratory and hemodynamic standpoint to transfer to a medical floor at [facility], nursing at [facility] and [facility] agreed, she was accepted to the service of Dr Sommer Villarreal. Patient was transferred to [facility] under the service of tipple greaser Dr Sommer Villarreal on 07/28/2018 Procedures/Imaging: Abdominal USG, Chest Xray (see chart) Laboratory/Data: Significant for Ammonia 163 on admission; Urine culture klebsiella+ Discharge Medications: Lactulose, Rifaxamin, Ceftriaxone IV, haloperidol PRN, apixiban 2.5mg po daily, Pepcid 20mg daily, lantus 10u qhs, Lopressor 5mg iv q6h Diet: NPO on discharge/transfer Activity: bedrest Condition upon discharge: stable, guarded Disposition: hospital to hospital transfer to [facility] ( [place], [place]) to Liver transplant service (Dr Sommer Villarreal) Code Status: FULL CODE Total Discharge time <30minutes Kwasi Mena MD Physician Office Secretary (Electronically Signed)
== END 2018-07-28 20:14 | disposition short-term general hospital (02) | DRG 720 ==
LOC: ED 02:54 → ICU 10:03
PROVIDERS: ADMIT Internal Medicine; ATTEND Internal Medicine Critical Care Medicine
DX: A41.9 Sepsis, unspecified organism (principal); K65.2 Spontaneous bacterial peritonitis; I81 Portal vein thrombosis; N39.0 Urinary tract infection, site not specified; N17.9 Acute kidney failure, unspecified; E87.2 Acidosis; K70.31 Alcoholic cirrhosis of liver with ascites; K72.90 Hepatic failure, unspecified without coma; E86.1 Hypovolemia; B96.1 Klebsiella pneumoniae [K. pneumoniae] as the cause of diseases classified elsewhere; D64.9 Anemia, unspecified; E11.22 Type 2 diabetes mellitus with diabetic chronic kidney disease; I12.9 Hypertensive chronic kidney disease with stage 1 through stage 4 chronic kidney disease, or unspecified chronic kidney disease; N18.9 Chronic kidney disease, unspecified; F10.21 Alcohol dependence, in remission; E83.52 Hypercalcemia; E86.0 Dehydration; R79.1 Abnormal coagulation profile; Z79.1 Long term (current) use of non-steroidal anti-inflammatories (NSAID); Z79.4 Long term (current) use of insulin; Z79.891 Long term (current) use of opiate analgesic; Z79.899 Other long term (current) drug therapy; Z91.030 Bee allergy status; Z91.041 Radiographic dye allergy status; Z91.018 Allergy to other foods; Z91.013 Allergy to seafood; Z88.8 Allergy status to other drugs, medicaments and biological substances; Z91.048 Other nonmedicinal substance allergy status
CPT/HCPCS: 36415; 70450; 71045; 76700; 80053; 80173; 81003; 81015; 82140; 82272; 82306; 82652; 83605; 83690; 83970; 84484; 85014; 85018; 85025; 85027; 85610; 85730; 86140; 86850; 86900; 86901; 86922; 87040; 87077; 87086; 87186; 87641; 93005; 99285; A9270-GY; J0360; J0696; J1630; J2060; J3490; P9040